=== PATIENT | female | born 1970 | race Caucasian/White ===

== ENCOUNTER 2018-08-08 12:54 | Day surgery (SDC) | payer OTHER ==
[2018-08-08 13:04] VITALS: RESP 16; TEMP 97.3
[2018-08-08 13:11] VITALS: BMI 23.3
[2018-08-08] MEDS ORDERED: LACTATED RINGERS 1,000 ML IV ONE (13:32)
[2018-08-08] MEDS ORDERED: MIDAZOLAM 2 MG/2 ML VIAL ONE (14:57)
[2018-08-08] MEDS ORDERED: fentaNYL (PF) 50 MCG/ML 2 ML AMP ONE (14:57)
[2018-08-08] MEDS ORDERED: PROPOFOL 10 MG/ML 20 ML VIAL IV ONE (14:57)
--- NOTE | 2018-08-08 15:44 | P.PCN ---
Date of Procedure: 08/08/18 Description of Procedure: BRIEF HISTORY: Pleasant 48-year-old female who presents for outpatient colonoscopy. The patient reports no family history of colon cancer. No prior colonoscopies. She denies any change in her bowel habits, constipation, diarrhea, hematochezia or melena. PROCEDURE PERFORMED: Colonoscopy with hot snare polypectomy. PREOPERATIVE DIAGNOSIS: Colon cancer screening, no prior colonoscopy. ESTIMATED BLOOD LOSS: Minimal. IV sedation per Anesthesia. PROCEDURE: After informed consent was obtained, the patient, was brought into the endoscopy unit. IV sedation was administered by Anesthesia under continuous monitoring. Digital rectal examination was normal. Initially the Olympus CF-190 flexible video colonoscope was then inserted in the rectum, gradually advanced into the cecum without any difficulty. Careful examination was performed as the scope was gradually being withdrawn. Ileocecal valve and the appendiceal orifice were visualized and appeared normal. Prep was excellent. Mucosa of the cecum, ascending colon, transverse colon, descending colon, sigmoid colon, and rectum appeared normal. An 11 mm pedunculated polyp in the proximal sigmoid colon was removed with hot forceps polypectomy. An 8 mm pedunculated distal sigmoid polyp was removed with hot forceps polypectomy. Mild internal hemorrhoids and skin tags. Retroflexion was performed in the rectum and no lesions were seen. The patient tolerated the procedure well. IMPRESSION: 2 sigmoid polyps removed with hot forcep polypectomy. Mild internal hemorrhoids, internal skin tags. RECOMMENDATIONS: Findings of this examination were discussed with the patient. Okay to resume diet. Await pathology from biopsies. Anticipate repeat colonoscopy in 3 years for high-risk polyps, pending pathology from polypectomies..
[2018-08-08 16:05] VITALS: BP 103/62; PULSE 77
== END 2018-08-08 16:16 | disposition home or self-care (01) ==
LOC: ORWHC2ENDO 12:54
PROVIDERS: ATTEND Internal Medicine
DX: Z12.11 Encounter for screening for malignant neoplasm of colon (principal); D12.5 Benign neoplasm of sigmoid colon; F17.200 Nicotine dependence, unspecified, uncomplicated; K64.8 Other hemorrhoids
CPT/HCPCS: 81025; 88305; 45385; J2250; J3010; J2704

== ENCOUNTER → 2020-03-29 | Outpatient (CLI) | payer OTHER ==
[2020-03-29 15:57] VITALS: BP 112/72; PULSE 75; RESP 18; TEMP 97.7
--- NOTE | 2020-03-29 16:19 | P.GSHP ---
History of Present Illness H&P Date: 03/29/20 Chief Complaint: right breast cyst Natty is a 50 year old white female seen in consultation for Dr. Alva regarding a mass in the right breast. She was able to feel for several months, but over the past several weeks that has completely resolved. [place] [address]. This revealed a 3 cm mass in the upper outer quadrant of the right breast for which an ultrasound was recommended. An ultrasound was done on [id number] this revealed 2.2 cm cystic lesion at a depth of 6 mm in the right breast. There was a question of some internal debris and suggestion that aspiration secondary to superficial position performed.The cyst has been intermittent for several years. This was the largest it has ever been, but now seems to have decreased in size again, and is not palpable to the patient. She does not have any other lumps masses or nodules in her breast. She is not complaining of any nipple discharge or skin changes. She has never had any breast biopsies. She is not complaining of any pain in her breast. Caffeine: 2 cups coffee/day Nicotine: Patient stopped several years ago mariah-bromine: weekly hormones: none Family history: maternal grandfather: colon cancer Hormonal History: menarche: 15 , breast fed: no, age at first : 25 menopause: menstrual periods sporadic control pills: 5 years Surgical History: Right knee surgery Tonsillectomy Medical history: Negative Social History: Smoke: Former smoker Alcohol: Occasional Drugs: Negative - Constitutional Constitutional: Reports sweats, Denies chills, Denies fever - EENT Eyes: denies blurred vision, denies pain Ears: deny: decreased hearing, tinnitus Ears, nose, mouth and throat: Denies headache, Denies sore throat - Breasts Breasts: bilateral: as per HPI - Cardiovascular Cardiovascular: Denies chest pain, Denies shortness of breath - Respiratory Respiratory: Denies cough, Denies 7 - Gastrointestinal Gastrointestinal: Denies abdominal pain, Denies diarrhea, Denies nausea, Denies vomiting - Genitourinary (Female) Genitourinary: Denies dysuria, Denies hematuria - Menstruation Menstruation: Reports menses variable - Musculoskeletal Musculoskeletal: Reports as per HPI - Integumentary Integumentary: Denies pruritus, Denies rash - Neurological Neurological: Denies numbness, Denies weakness - Psychiatric Psychiatric: Denies anxiety, Denies depression - Endocrine Endocrine: Denies fatigue, Denies weight change - Hematologic/Lymphatic Comment: none - Allergic/Immunologic Allergic/Immunologic: Reports seasonal allergies Past Medical History History of Any Multi-Drug Resistant Organisms: None Reported Additional Past Surgical History / Comment(s): RIGHT KNEE SURGERY IN HIGH SCHOOL Past Anesthesia/Blood Transfusion Reactions: No Reported Reaction Past Psychological History: No Psychological Hx Reported Past Alcohol Use History: Occasional Past Drug Use History: None Reported Medications and Allergies Home Medications Medication Instructions Recorded Confirmed Type Multivit/Folic Acid/Vit K1 1 each PO DAILY 03/29/20 03/29/20 History [One-A-Day Women's 50 Plus Tab] Allergies Allergy/AdvReac Type Severity Reaction Status Date / Time No Known Drug Allergies Allergy Unknown Verified 03/29/20 15:57 Surgical - Exam - General well developed, well nourished, no distress - Eyes normal ocular movement - ENT no hearing loss, no congestion - Neck no masses, trachea midline - Respiratory normal expansion, normal respiratory effort, clear to auscultation - Cardiovascular Rhythm: regular Heart Sounds: normal: S1, S2 - Abdomen Abdomen: soft, non tender, no guarding, no rigid, no rebound - Integumentary normal turgor - Neurologic no disoriented, no combative - Musculoskeletal normal gait - Psychiatric oriented to time, oriented to person, oriented to place, speech is normal, memory intact breast exam: BRA: 34B inspection: bilateral grade 2 ptosis palpation: right breast: Multi-positional exam dense fibrocystic breast tissue no dominant masses or nodules of concern Right axilla: No adenopathy of concern Left breast: Multi-positional exam dense fibrocystic breast tissue no dominant masses or nodules of concern Left axilla: No adenopathy of concern Results Mammogram and ultrasound results reviewed from January 2020 Assessment and Plan Assessment: Impression: 1. Cystic lesion right breast which has since resolved 2. Dense fibrocystic breast tissue Plan: 1. Repeat ultrasound when the lesion recurs, or if it does not recur would repeat in 4 months 2. At this time there is nothing palpable to aspirate CC: DR. Alva encounter 45 minutes, > 50% of time in planning and counselling We discussed causes of fibrocystic breast changes. These include caffeine. aNtty will consider decreasing her caffeine intake. At the present time there is nothing to biopsy, we will continue close surveillance and I will see her again in 4 months time. She has been given a book on breast pain/fibrocystic changes.
== END | disposition home or self-care (01) ==
LOC: WWCWWP 15:45
PROVIDERS: ATTEND Surgery
DX: Z53.9 Procedure and treatment not carried out, unspecified reason (principal)

== ENCOUNTER → 2022-02-16 | Outpatient (CLI) | payer BC ==
--- NOTE | 2022-02-17 08:37 | MM ---
Reason for Exam: Screening (asymptomatic). Last mammogram was performed 2 year(s) and 0 month(s) ago. Patient History: Menarche at age 14. First Full-Term at age 25. Last menstrual period: Risk Values: Denia 5 year model risk: 1.2%. NCI Lifetime model risk: 8.5%. Prior Study Comparison: 12/27/2017 Bilateral MG 3D screening mammo w/cad, [facility]. 08/22/2018 Bilateral MG 3D diag mammo w/cad JUD - 2, [facility]. 01/25/2020 Bilateral MG screening mammo w CAD - 2, [facility]. Tissue Density: The breast tissue is extremely dense which could obscure a lesion on mammography. Findings: Analyzed By CAD. There are scattered and loosely grouped benign-appearing round calcifications bilaterally. There is new oval 1.1 cm circumscribed mass in the posterior depth upper outer right breast. There are increasing indeterminate calcifications in the anterior upper aspect right breast. Both warrants further workup. Overall Assessment: Incomplete: need additional imaging evaluation, BI-RAD 0 Management: Special View Mammogram of the right breast. Diagnostic Breast Ultrasound of the right breast. Return for additional spot magnification and true lateral views right breast. Return for targeted ultrasound posterior depth upper outer right breast. Electronically signed and approved by: Elijah Perry M.D.
== END | disposition home or self-care (01) ==
LOC: RADMAMWWP 07:31
PROVIDERS: ATTEND Family Medicine
DX: Z12.31 Encounter for screening mammogram for malignant neoplasm of breast (principal)
CPT/HCPCS: 77063; 77067

== ENCOUNTER → 2022-02-20 | Outpatient (CLI) | payer BC ==
--- NOTE | 2022-02-20 15:28 | USB ---
Reason for Exam: Additional evaluation requested from abnormal screening. Patient History: Menarche at age 14. First Full-Term at age 25. Risk Values: Denia 5 year model risk: 1.2%. NCI Lifetime model risk: 8.5%. Technique: Method: Targeted. Prior Study Comparison: 08/22/2018 Bilateral MG 3D diag mammo w/cad JUD - 2, [facility]. 01/25/2020 Bilateral MG screening mammo w CAD - 2, [facility]. 02/16/2022 Bilateral MG 3D screening mammo w/cad, [facility]. Findings: The lateral section of the breast of the right breast and the axilla of the right breast were scanned. A 0.9 x 0.8 x 0.5 cm cyst with posterior wall enhancement and through transmission is present at the 8:00 position right breast. An additional cysts at the 12:00 position 5 cm from the nipple measuring 0.7 x 0.4 cm. At the 10:00 position there is apparent adjacent cysts or a septated cyst 5 cm in the nipple measuring 1.2 x 0.6 cm. No suspicious solid lesions. Overall Assessment: Probably benign, BI-RAD 3 Management: Diagnostic Breast Ultrasound of the right breast in 6 months. Stereotactic Core Biopsy of the right breast. A clinical breast exam by your physician is recommended on an annual basis and results should be correlated with mammographic findings. This exam should not preclude additional follow-up of suspicious palpable abnormalities. ??Results were given to the patient verbally at the time of exam. Electronically signed and approved by: Daniel Thao D.O. Radiologis
--- NOTE | 2022-02-23 08:22 | MM ---
Reason for Exam: Follow-up at short interval from prior study. Last screening mammogram was performed less than 1 month ago. Patient History: Menarche at age 14. First Full-Term at age 25. Risk Values: Denia 5 year model risk: 1.2%. NCI Lifetime model risk: 8.5%. Tissue Density: Right: The breast tissue is extremely dense which could obscure a lesion on mammography. Findings: Analyzed By CAD. There are grouped calcifications in the anterior right upper outer aspect. These are increasing from the comparison 2019. Stereotactic core biopsy is recommended. Overall Assessment: Suspicious, BI-RAD 4 Management: Stereotactic Core Biopsy of the right breast. A clinical breast exam by your physician is recommended on an annual basis and results should be correlated with mammographic findings. This exam should not preclude additional follow-up of suspicious palpable abnormalities. Results were given to the patient verbally at the time of exam. Electronically signed and approved by: Daniel Thao D.O. Radiologis
== END | disposition home or self-care (01) ==
LOC: RADMAMWWP 13:39
PROVIDERS: ATTEND Family Medicine
DX: R92.8 Other abnormal and inconclusive findings on diagnostic imaging of breast (principal)
CPT/HCPCS: 77061; 77065

== ENCOUNTER → 2022-03-27 | Outpatient (CLI) | payer BC | LOC: WWCWWP 07:03 | PROVIDERS: ATTEND Surgery | DX: Z53.9 Procedure and treatment not carried out, unspecified reason (principal) ==

== ENCOUNTER → 2022-03-27 | Day surgery (SDC) | payer BC ==
[2022-03-27 07:23] VITALS: RESP 16
--- NOTE | 2022-03-27 08:11 | P.GSHP ---
History of Present Illness H&P Date: 03/27/22 Chief Complaint: abnormal right breast mammogram Natty is a 52 year old white female seen in consultation for DR. Alexander King regarding an abnormal right breast mammogram. Screening mammogram on 489394. This revealed dense breast tissue with some questionable calci fications as well as an oval circumscribed mass in the posterior depth of her upper outer right breast. The calcifications were in the anterior upper right breast. She subsequently underwent an ultrasound of the right breast revealing cystic changes which was considered benign by roots 3 and repeat ultrasound in 6 months was recommended as well [place] [address] which revealed grouped calcifications in the anterior right upper outer quadrant for which stereotactic core biopsy was recommended. The patient does not feel any lumps masses or nodules of concern in either breast. She is not complaining of any breast pain. She is not complaining of any nipple discharge or skin changes. She's not had any recent trauma or infection in the breast. Is never had any surgery on her breast. Caffeine: 3 cups coffee/day nicotine: stopped 1 year ago; occasional smoker for 30 years chocolate: occasional BCP: 4 years 30 years ago Family history: father: lung cancer Hormonal History: menarche: 15 , breast fed: no age at first : 25 menopasuse: 52 hormones: no Surgical history: right knee Medical History: long COVID (on prednisone and Cymbalta) Social History: nicotine: stopped 1 year ago; occasional smoker for 30 years alcohol: occasional; 7/week wine or beer Marijuana: Negative - Constitutional Constitutional: Denies chills, Denies fever - EENT Eyes: denies blurred vision, denies pain Ears: deny: decreased hearing, tinnitus Ears, nose, mouth and throat: Denies headache, Denies sore throat - Breasts Breasts: bilateral: as per HPI - Cardiovascular Cardiovascular: Denies chest pain, Denies shortness of breath - Respiratory Respiratory: Denies cough, Denies 7 - Gastrointestinal Gastrointestinal: Denies abdominal pain, Denies diarrhea, Denies nausea, Denies vomiting - Genitourinary (Female) Genitourinary: Denies dysuria, Denies hematuria - Menstruation Menstruation: Reports postmenopausal - Musculoskeletal Comment: Patient has muscle aches and pains following covid vaccination and covid, she is presently treated with prednisone and Cymbalta Musculoskeletal: Reports myalgias - Integumentary Integumentary: Denies pruritus, Denies rash - Neurological Neurological: Denies numbness, Denies weakness - Psychiatric Psychiatric: Denies anxiety, Denies depression - Endocrine Endocrine: Reports weight change, Denies fatigue - Hematologic/Lymphatic Comment: none - Allergic/Immunologic Allergic/Immunologic: Reports as per HPI Past Medical History Additional Past Medical History / Comment(s): chronic muscle pain r/t covid Jan 2021, taking cymbalta and prednisone for pain management History of Any Multi-Drug Resistant Organisms: None Reported Additional Past Surgical History / Comment(s): RIGHT KNEE SURGERY IN HIGH SCHOOL 1984 Past Anesthesia/Blood Transfusion Reactions: No Reported Reaction Past Psychological History: No Psychological Hx Reported Smoking Status: Former smoker Past Alcohol Use History: Occasional Past Drug Use History: None Reported Medications and Allergies Home Medications Medication Instructions Recorded Confirmed Type Multivit/Folic Acid/Vit K1 1 each PO DAILY 03/29/20 03/27/22 History [One-A-Day Women's 50 Plus Tab] DULoxetine HCL [Cymbalta] 30 mg PO DAILY 02/23/22 03/27/22 History predniSONE 10 mg PO BID 02/23/22 03/27/22 History Allergies Allergy/AdvReac Type Severity Reaction Status Date / Time No Known Drug Allergies Allergy Unknown Verified 03/27/22 07:40 Surgical - Exam Vital Signs Temp Pulse Resp BP 98.1 F 69 16 118/82 03/27/22 07:16 03/27/22 07:16 03/27/22 07:16 03/27/22 07:16 BMKI: 21.1 - General no distress - Eyes normal ocular movement - Neck trachea midline - Respiratory normal respiratory effort, clear to auscultation - Cardiovascular Heart Sounds: normal: S1, S2 - Abdomen Abdomen: soft, non tender, no guarding, no rigid, no rebound - Integumentary normal turgor - Musculoskeletal normal gait - Psychiatric oriented to time, oriented to person, oriented to place, speech is normal, memory intact Breast Exam: BRA: 34C Inspection: Bilateral grade 2 ptosis Palpation: Right breast: Multiple positional exam dense fibrocystic breast, no discrete dominant masses or nodules of concern Right axilla: No adenopathy of concern Left breast: Multi-positional exam dense fibrocystic breast, no dominant masses or nodules of concern Left axilla: No adenopathy of concern Results Mammogram reviewed personally with Dr. Mahoney Assessment and Plan Assessment: Impression: Microcalcifications of concern in the right breast Cystic lesions right breast Fibrocystic breast changes bilateral Plan: Stereotactic core biopsy right breast Repeat right breast ultrasound in 6 months Risks and benefits of stereotactic core biopsy discussed with the patient. Risks include but are not limited to bleeding, infection, reaction to the anesthetic. If the biopsy results were discordant then open biopsy may be recommended in the future. Alternatives such as watchful waiting or resection in the operating room I discussed but not recommended. The patient understands and wishes to proceed. Cc: Dr. Carranza
[2022-03-27 08:51] VITALS: BP 111/73; PULSE 65; TEMP 98.2
--- NOTE | 2022-03-27 13:25 | P.PCN ---
Date of Procedure: 03/27/22 Preoperative Diagnosis: Microcalcifications of concern right breast Postoperative Diagnosis: Same Procedure(s) Performed: Stereotactic core biopsy right breast Anesthesia: local Surgeon: Valerie Drake Pathology: other (Radiograph of right breast specimen revealed microcalcifications) Condition: stable Disposition: same day Indications for Procedure: Abnormal right breast microcalcifications Operative Findings: Radiograph of tissue microcalcifications of concern Description of Procedure: The patient is a 52-year-old white female who on a routine mammogram was noted to have microcalcifications of concern in the right breast. This was reviewed with radiology and it was felt that there were multiple areas of microcalcification and sampling of a group would be veterans service representative of the remainder of the calcifications. A group was selected which was in the mid breast. Risk and benefits of the procedure were discussed with the patient. She agreed and wished to have the procedure performed. The patient was taken to the stereotactic core biopsy room. She was positioned prone on the lo-rad table. A coil machine supervisor film was obtained. Calcifications of concern were identified. The calcifications were targeted. The breast was prepped using Betadine. 20 mL of 1% lidocaine were used to anesthetize the area of concern. A 9-gauge vacuum-assisted core rotating biopsy needle was driven to the correct coordinates. The needle was fired. Post fire film was obtained. The needle was noted to be in the correct location. 12 core biopsy specimens were obtained. Radiograph of the specimen revealed calcifications of concern had been removed. The area was lavaged. A hydrogel clip was deployed. The clip appeared to be in the correct location. The specimen was sent to pathology. The patient will follow up with Dr. Treadwell in 1 week.
--- NOTE | 2022-03-27 13:51 | MM ---
Date of Procedure: 03/27/22 Preoperative Diagnosis: Microcalcifications of concern right breast Postoperative Diagnosis: Same Procedure(s) Performed: Stereotactic core biopsy right breast Anesthesia: local Surgeon: Valerie Drake Pathology: other (Radiograph of right breast specimen revealed microcalcifications) Condition: stable Disposition: same day Indications for Procedure: Abnormal right breast microcalcifications Operative Findings: Radiograph of tissue microcalcifications of concern Description of Procedure: The patient is a 52-year-old white female who on a routine mammogram was noted to have microcalcifications of concern in the right breast. This was reviewed with radiology and it was felt that there were multiple areas of microcalcification and sampling of a group would be banking representative of the remainder of the calcifications. A group was selected which was in the mid breast. Risk and benefits of the procedure were discussed with the patient. She agreed and wished to have the procedure performed. The patient was taken to the stereotactic core biopsy room. She was positioned prone on the lo-rad table. A football scout film was obtained. Calcifications of concern were identified. The calcifications were targeted. The breast was prepped using Betadine. 20 mL of 1% lidocaine were used to anesthetize the area of concern. A 9-gauge vacuum-assisted core rotating biopsy needle was driven to the correct coordinates. The needle was fired. Post fire film was obtained. The needle was noted to be in the correct location. 12 core biopsy specimens were obtained. Radiograph of the specimen revealed calcifications of concern had been removed. The area was lavaged. A hydrogel clip was deployed. The clip appeared to be in the correct location. The specimen was sent to pathology. The patient will follow up with Dr. Treadwell in 1 week. HARRY
== END ==
LOC: RADMAMWWP 07:01
PROVIDERS: ATTEND Surgery
DX: N60.11 Diffuse cystic mastopathy of right breast (principal); G89.29 Other chronic pain; Z80.1 Family history of malignant neoplasm of trachea, bronchus and lung; Z86.16 Personal history of COVID-19; Z87.891 Personal history of nicotine dependence; Z86.59 Personal history of other mental and behavioral disorders; Z79.52 Long term (current) use of systemic steroids; Z79.899 Other long term (current) drug therapy
CPT/HCPCS: 19081; A4648; J2001; 88305; 88341; 88342

== ENCOUNTER → 2022-04-03 | Outpatient (CLI) | payer BC ==
[2022-04-03 08:45] VITALS: BP 117/76; PULSE 80; RESP 16; TEMP 98.4
--- NOTE | 2022-04-03 09:37 | P.PN ---
Subjective Progress Note Date: 04/03/22 Principal diagnosis: Atypical lobular hyperplasia right breast Natty is a 52 year old white female seen in consultation for DR. Carranza regarding an abnormal right breast mammogram. Screening mammogram on [id number]. This revealed dense breast tissue with some questionable calcifications as well as an oval circumscribed mass in the posterior depth of her upper outer right breast. The calcifications were in the anterior upper right breast. She subsequently underwent an ultrasound of the right breast revealing cystic changes which was considered benign by roots 3 and repeat ultrasound in 6 months was recommended [place] [address] which revealed grouped calcifications in the anterior right upper outer quadrant for which stereotactic core biopsy was recommended. The patient does not feel any lumps masses or nodules of concern in either breast. She is not complaining of any breast pain. She is not complaining of any nipple discharge or skin changes. She's not had any recent trauma or infection in the breast. Is never had any wade rgery on her breast. Stereotactic core biopsy was performed on 1622. This revealed atypical lobular hyperplasia. It also revealed fibrocystic changes with fibrosis, focal microcalcification, focal mammary duct ectasia, and periductal chronic inflammation. I discussed the case with pathology and they do not believe that this warrants interventional biopsy. This is not LCIS, this is not a typical ductal hyperplasia. Before that this area should be followed clinically. Caffeine: 3 cups coffee/day nicotine: stopped 1 year ago; occasional smoker for 30 years chocolate: occasional BCP: 4 years 30 years ago Family history: father: lung cancer Hormonal History: menarche: 15 , breast fed: no age at first : 25 menopasuse: 52 hormones: no Surgical history: right knee Medical History: long COVID (on prednisone and Cymbalta) Social History: nicotine: stopped 1 year ago; occasional smoker for 30 years alcohol: occasional; 7/week wine or beer Marijuana: Negative - Constitutional Constitutional: Denies chills, Denies fever - EENT Eyes: denies blurred vision, denies pain Ears: deny: decreased hearing, tinnitus Ears, nose, mouth and throat: Denies headache, Denies sore throat - Breasts Breasts: bilateral: as per HPI - Cardiovascular Cardiovascular: Denies chest pain, Denies shortness of breath - Respiratory Respiratory: Denies cough - Gastrointestinal Gastrointestinal: Denies abdominal pain, Denies diarrhea, Denies nausea, Denies vomiting - Genitourinary (Female) Genitourinary: Denies dysuria, Denies hematuria - Menstruation Menstruation: Reports postmenopausal - Musculoskeletal Comment: Patient has muscle aches and pains following covid vaccination and covid, she is presently treated with prednisone and Cymbalta Musculoskeletal: Reports myalgias - Integumentary Integumentary: Denies pruritus, Denies rash - Neurological Neurological: Denies numbness, Denies weakness - Psychiatric Psychiatric: Denies anxiety, Denies depression - Endocrine Endocrine: Reports weight change, Denies fatigue - Hematologic/Lymphatic Comment: none - Allergic/Immunologic Allergic/Immunologic: Reports as per HPI Past Medical History Additional Past Medical History / Comment(s): chronic muscle pain r/t covid Jan 2021, taking cymbalta and prednisone for pain management History of Any Multi-Drug Resistant Organisms: None Reported Additional Past Surgical History / Comment(s): RIGHT KNEE SURGERY IN HIGH SCHOOL 1984 Past Anesthesia/Blood Transfusion Reactions: No Reported Reaction Past Psychological History: No Psychological Hx Reported Smoking Status: Former smoker Past Alcohol Use History: Occasional Past Drug Use History: None Reported Medications and Allergies Home Medications Medication Instructions Recorded Confirmed Type Multivit/Folic Acid/Vit K1 1 each PO DAILY 03/29/20 03/27/22 History [One-A-Day Women's 50 Plus Tab] DULoxetine HCL [Cymbalta] 30 mg PO DAILY 02/23/22 03/27/22 History predniSONE 10 mg PO BID 02/23/22 03/27/22 History Allergies Allergy/AdvReac Type Severity Reaction Status Date / Time No Known Drug Allergies Allergy Unknown Verified 03/27/22 07:40 Objective - Vital Signs Vital signs: Vital Signs Temp 98.4 F 04/03/22 08:41 Pulse 80 04/03/22 08:41 Resp 16 04/03/22 08:41 BP 117/76 04/03/22 08:41 Pulse Ox 98 04/03/22 08:41 FiO2 Intake & Output 04/02/22 04/03/22 04/03/22 18:59 06:59 18:59 Weight 61.235 kg - Constitutional General appearance: Present: cooperative - EENT Eyes: Present: EOMI ENT: Present: hearing grossly normal - Neck Neck: Present: normal ROM - Respiratory Respiratory: bilateral: CTA - Cardiovascular Rhythm: regular Heart sounds: normal: S1, S2 - Gastrointestinal General gastrointestinal: Present: soft - Integumentary Integumentary: Present: normal turgor - Musculoskeletal Musculoskeletal: Present: gait normal - Psychiatric Psychiatric: Present: A&O x's 3, appropriate affect, intact judgment & insight - Additional findings Additional findings: Breast Exam: BRA: 34C Inspection: Bilateral grade 2 ptosis Palpation: Right breast: Multiple positional exam dense fibrocystic breast, no discrete dominant masses or nodules of concern Right axilla: No adenopathy of concern Left breast: Multi-positional exam dense fibrocystic breast, no dominant masses or nodules of concern Left axilla: No adenopathy of concern Assessment and Plan Assessment: Impression: Patient status post her tactic core biopsy right breast pathology revealing a typical lobular hyperplasia Plan: Case has been reviewed with pathology. It is not felt that it necessitates interventional biopsy at this time. She will have a repeat right breast mammogram and examination in 6 months. If she notes anything of concern she will call us sooner. CC: Barbie Ivey
== END ==
LOC: WWCWWP 08:32
PROVIDERS: ATTEND Surgery
DX: N60.11 Diffuse cystic mastopathy of right breast (principal); N60.12 Diffuse cystic mastopathy of left breast; Z86.16 Personal history of COVID-19; F17.200 Nicotine dependence, unspecified, uncomplicated

== ENCOUNTER → 2022-08-12 | Outpatient (CLI) | payer BC ==
[2022-08-12 08:14] VITALS: BP 111/76; PULSE 70; RESP 18; TEMP 98.8
--- NOTE | 2022-08-12 13:46 | P.PAINPG ---
PQRS Measure Charge Sheet Comment: HISTORY OF PRESENT ILLNESS: 52 yr old female as a referral from Dr Bin Acosta presents today w severe and chronic neck pain secondary to stenosis, spondylosis and facet arthropathy without myelopathy for evaluation. Pt states pain level is provoked at 7/10 in intensity, constant, localized in the lower cervical spine, tightness in character w shooting pain up towards the head and BL shoulders. Pain is provoked by . Pain is alleviated by massage therapy semi monthly x 6 mo in Apr 2022, chiropractic treatments semi weekly x 6 mo in Jan 2022, medications, ice, topicals, reposition and rest. PMH: OA PSH: R Breast Biopsy (2022), R Knee Surgery (1984) SH: Former tobacco user, Occasional ETOH use, No illicit drug use FH: Non contributory All: NKDA Meds: See list REVIEW OF ORGAN SYSTEMS: CONSTITUTIONAL: No fevers or chills. No recent weight loss. NEUROLOGICAL: + numbness and tingling along the distal extremities. No seizure disorders or headaches. MUSCULOSKELETAL: + pain PSYCHIATRIC: Denies current depression or suicidal thoughts. Physical Examinations : Constitutional : Cooperative , not in acute distress . Neurologic : Cranial nerve II to XII intact. No focal neurological deficits. Psychiatric : alert & oriented x 3. Matching mood & appropriate affect. Judgment & insight intact. Musculoskeletal : Cervical Spine Motor strength in the deltoid and biceps: Normal right side. Normal Left side Motor strength biceps and the wrist extensors: Normal right side . Normal left side Motor strength in the triceps muscle: Normal right side. Normal left side Deep tendon reflexes: Normal at the biceps. Normal at Brachioradialis. Normal at triceps Vertebral body tenderness to deep palpation over C6 Cervical facet loading test: positive bilaterally Spurling test: positive at C5- C6 Neck distraction test: positive bilaterally Mandy sign: positive bilaterally Lumbar spine Motor strength lower extremities ,thigh and legs 5/5 Right side , 5/5 Left side Deep tendon reflexes : Normal Knee Jerk. Normal Ankle Jerk Vertebral body tenderness over [place] Test positive Lumbar facet Loading Test: positive Right / positive Left Range of motion of the lumbar spine Flexion 30 degrees, extension 10 degrees Straight Leg Raise test: Left/ Right positive at degree Jimmie test: positive right / positive left. Severe tenderness over the Sacroiliac joint on the Right / Left sides Gaenslen test: positive bilaterally Seated flexion test: positive bilaterally. Sacral spine : Severe tenderness over the Sacroiliac joint: right side / left side Range of motion: Flexion of the lumbar spine <60 degrees Range of motion: Extension of the lumbar spine <20 degrees Gaenslen's Test positive Jordan's Test positive Jimmie test: positive right side / left side Thigh Thrust Test Sacral Thrust Test Imaging: MRI noncontrast of the cervical spine from 05/15/22 reviewed Assessment/ Plan : Cervical stenosis, cervical spondylosis Recommendation of MANSI C6-7. May need a series of injections for optimal pain relief. Risks, benefits of procedure discussed and patient verbalized understanding. Admits to aspirin or anti- coagulant use or medical history of diabetes. Protocol for discontinuation/ continuation of medications kerline procedure discussed. Minimal anesthesia provided, if clinically indicated, consisting of Versed and Fentanyl. All questions answered. I have spent greater than 30 minutes on patient care today. Dr Gross was available by phone for the evaluation of this patient. The time was used to review the medical records including relevant urine studies and Prescription history (MAPs), review of the available imaging, evaluation and examination of the patient, coordination of care with the medical staff and if applicable referring physicians, as well as creation of the medical record PQRS Narrative: Smoking Status Current some day smoker Home Medications: Ambulatory Orders Multivit/Folic Acid/Vit K1 [One-A-Day Women's 50 Plus Tab] 1 each PO DAILY 03/29/20 DULoxetine HCL [Cymbalta] 30 mg PO DAILY 02/23/22 predniSONE 10 mg PO BID 02/23/22 Controlled Substance Measures - Controlled Substance Measures Is patient prescribed a controlled substance at discharge?: No
== END ==
LOC: PNWHC3 07:30
PROVIDERS: ATTEND Specialist
DX: M47.812 Spondylosis without myelopathy or radiculopathy, cervical region (principal); M48.02 Spinal stenosis, cervical region; M19.90 Unspecified osteoarthritis, unspecified site; F17.200 Nicotine dependence, unspecified, uncomplicated
CPT/HCPCS: 99211

== ENCOUNTER 2022-09-03 06:12 | Day surgery (SDC) | payer BC ==
[2022-09-03 06:57] VITALS: TEMP 97.5
[2022-09-03 07:00] LABS: Glucose,Whole Blood 104 mg/dL (70-110)
[2022-09-03] MEDS ORDERED: DEXAMETHASONE SOD PHOSPHATE 10 MG/ML 1 ML VIAL ONE (07:24)
[2022-09-03] MEDS ORDERED: IOPAMIDOL M200 10 ML VIAL ONE (07:24)
--- NOTE | 2022-09-03 07:30 | P.PCN ---
Date of Procedure: 09/03/22 Procedure(s) Performed: . PROCEDURE 1. Cervical epidural steroid injection under fluoroscopic guidance, C6-7 (fluoroscopy images available in the radiology department ) 2. Cervical epidurogram. PREOPERATIVE DIAGNOSIS: 1- Cervical Degenerative Disc Diseases 2-cervical spinal stenosis POSTOPERATIVE DIAGNOSIS: : 1- Cervical Degenerative Disc Diseases , 2-cervical spinal stenosis ANESTHESIA: Lidocaine 1% 3 mL only EBL 0 PROCEDURE INDICATION: The patient with neck pain and radiculitis unresponsive to conservative treatment consents for procedure. PROCEDURE DESCRIPTION / TECHNIQUE: The patient was seen and identified in the preoperative area. Risks, benefits, complications, including but not limited to infections ,bleeding , allergic reactions to the medications ,and not complete pain releife, and alternatives were discussed with the patient, the patient agreed to proceed with the procedure and signed the consent. Patient was taken to the OR and time out was completed. The patient was placed in the prone position on the procedure table. A pillow was placed under the patients chest to increase the cervical interlaminar space. The cervical area was prepped and draped in the usual sterile fashion. Vital signs were closely monitored during the procedure. Using anterior-posterior fluoroscopy, the C6-7 interlaminar space was identified and the skin over this site was marked and then infiltrated with 1% lidocaine subcutaneously. Subsequently, a 20-gauge 3-1/2-inch Tuohy epidural needle was inserted and advanced toward the epidural space by means of the ``hanging-drop technique and guided by AP and lateral fluoroscopy. The correct needle position in the epidural space was verified with the injection of 2 mL of the water soluble contrast dye [id number] and observing an excellent epidurogram with the epidural spread of the dye, after negative aspiration for blood and CSF and in the absence of paresthesias. then, mixture containing 20 mg Dexamethasone and 2 ml of preservative-free normal saline injected and a washout of epidurogram was seen. Needle was withdrawn intact, skin was cleansed, and bandages were applied. Complications= none. Disposition= patient was placed in supine position and transferred to the recovery room area in stable condition and there was no evidence of upper or lower extremity motor or sensory deficit after the procedure patient was discharged from recovery room after discharge criteria met and home discharge instructions was given by the staff and patient will follow with the pain clinic in 2-4 weeks
[2022-09-03 07:35] VITALS: RESP 16
[2022-09-03] MEDS ORDERED: LACTATED RINGERS 1,000 ML IV SCH (07:41)
--- NOTE | 2022-09-03 07:47 | FL ---
Fluoroscopy History: Cerv Epid Inj FL: 3SEC, DAP: [id number]
[2022-09-03 07:48] VITALS: BP 104/69; PULSE 57
== END 2022-09-03 07:51 | disposition home or self-care (01) ==
LOC: ORPAIN 06:12
PROVIDERS: ATTEND Specialist
DX: M50.123 Cervical disc disorder at C6-C7 level with radiculopathy (principal); M48.02 Spinal stenosis, cervical region
CPT/HCPCS: 62321; J1100; Q9966

== ENCOUNTER → 2022-09-28 | Outpatient (CLI) | payer BC ==
--- NOTE | 2022-09-28 07:17 | MM ---
Reason for Exam: Follow-up at short interval from prior study. Last screening mammogram was performed 8 month(s) ago. Patient History: Menarche at age 14. First Full-Term at age 25. Postmenopausal. Previous Atypical Lobular Hyperplasia at age 52. 03/27/2022, High risk MG stereo VAD BX RT on the right side. Risk Values: Denia 5 year model risk: 2.6%. NCI Lifetime model risk: 18.4%. Prior Study Comparison: 01/25/2020 Bilateral MG screening mammo w CAD - 2, [facility]. 02/16/2022 Bilateral MG 3D screening mammo w/cad, [facility]. 02/20/2022 Right MG 3D work up w/cad RT, [facility]. Tissue Density: Right: The breast tissue is heterogeneously dense. This may lower the sensitivity of mammography. Findings: Analyzed By CAD. Postmammotome core biopsy changes are redemonstrated. Microclip marker in place. Scattered calcifications are redemonstrated. No new clusters seen. No evidence for mass. Overall Assessment: Benign, BI-RAD 2 Management: Screening Mammogram of both breasts in 6 months. . Results were given to the patient verbally at the time of exam. Patient should continue monthly self-breast exams. A clinical breast exam by your physician is recommended on an annual basis. This exam should not preclude additional follow-up of suspicious palpable abnormalities. Note on Denia scores and lifetime risk: 1. A Denia score greater than 3% is considered moderate risk. If this is the case, consider specialist referral to assess eligibility for a risk reducing agent. 2. If overall lifetime risk for the development of breast cancer is 20% or higher, the patient may qualify for future screening with alternating mammogram and breast MRI. Electronically signed and approved by: Wilberto Frances M.D. Radiologis
== END | disposition home or self-care (01) ==
LOC: RADMAMWWP 06:47
PROVIDERS: ATTEND Surgery
DX: R92.8 Other abnormal and inconclusive findings on diagnostic imaging of breast (principal); Z78.0 Asymptomatic menopausal state
CPT/HCPCS: 77061; 77065

== ENCOUNTER → 2022-09-30 | Outpatient (CLI) | payer BC ==
[2022-09-30 11:18] VITALS: BP 105/71; PULSE 69; RESP 18; TEMP 98.7
--- NOTE | 2022-10-02 08:47 | P.PAINPG ---
PQRS Measure Charge Sheet Comment: 52 yr old female presents today w severe and chronic neck pain secondary to stenosis, spondylosis and facet arthropathy without myelopathy for evaluation s/p MANSI C6-C7. Pt states she experienced 0% pain relief s/p procedure. Pt states pain level is provoked at 7/10 in intensity, constant, localized in the lower cervical spine, tightness in character w shooting pain up towards the head and BL shoulders. Pain is provoked by over activity. Pain is alleviated by massage therapy semi monthly x 6 mo in Apr 2022, chiropractic treatments Q 3wks x 6 mo in Jan 2022, medications, ice, topicals, reposition and rest. Oswestry axial pain score of 13. Interventional procedures include MANSI C6-C7 x1 Medications include Ibu REVIEW OF ORGAN SYSTEMS: CONSTITUTIONAL: No fevers or chills. No recent weight loss. NEUROLOGICAL: + numbness and tingling along the distal extremities. No seizure disorders or headaches. MUSCULOSKELETAL: + pain PSYCHIATRIC: Denies current depression or suicidal thoughts. Physical Examinations : Constitutional : Cooperative , not in acute distress . Neurologic : Cranial nerve II to XII intact. No focal neurological deficits. Psychiatric : alert & oriented x 3. Matching mood & appropriate affect. Judgment & insight intact. Musculoskeletal : Cervical Spine Motor strength in the deltoid and biceps: Normal right side. Normal Left side Motor strength biceps and the wrist extensors: Normal right side . Normal left side Motor strength in the triceps muscle: Normal right side. Normal left side Deep tendon reflexes: Normal at the biceps. Normal at Brachioradialis. Normal at triceps Vertebral body tenderness Cervical facet loading test: positive bilaterally over C4-C5, C5-C6 Spurling test: positive Neck distraction test: positive bilaterally Mandy sign: positive bilaterally Lumbar spine Motor strength lower extremities ,thigh and legs 5/5 Right side , 5/5 Left side Deep tendon reflexes : Normal Knee Jerk. Normal Ankle Jerk Vertebral body tenderness over [place]oco Test positive Lumbar facet Loading Test: positive Right / positive Left Range of motion of the lumbar spine Flexion 30 degrees, extension 10 degrees Straight Leg Raise test: Left/ Right positive at degree Jimmie test: positive right / positive left. Severe tenderness over the Sacroiliac joint on the Right / Left sides Gaenslen test: positive bilaterally Seated flexion test: positive bilaterally. Sacral spine : Severe tenderness over the Sacroiliac joint: right side / left side Range of motion: Flexion of the lumbar spine <60 degrees Range of motion: Extension of the lumbar spine <20 degrees Gaenslen's Test positive Jordan's Test positive Jimmie test: positive right side / left side Thigh Thrust Test Sacral Thrust Test Imaging: MRI non contrast of the cervical spine from 05/15/22 reviewed Assessment/ Plan : Cervical stenosis, cervical spondylosis Recommendation of BL MBB C4-C5, C5-C6 #1. May need a series of injections, up until RFA, for optimal pain relief. Risks, benefits of procedure discussed and patient verbalized understanding. Admits to aspirin or anti- coagulant use or medical history of diabetes. Protocol for discontinuation/ continuation of medications kerline procedure discussed. Minimal anesthesia provided, if clinically indicated, consisting of Versed and Fentanyl. All questions answered. I have spent greater than 30 minutes on patient care today. Dr Gross was available by phone for the evaluation of this patient. The time was used to review the medical records including relevant urine studies and Prescription history (MAPs), review of the available imaging, evaluation and examination of the patient, coordination of care with the medical staff and if applicable referring physicians, as well as creation of the medical record PQRS Narrative: Smoking Status Current some day smoker Hx Alcohol Use (MH) Yes: WEEKLY Home Medications: Ambulatory Orders Multivit/Folic Acid/Vit K1 [One-A-Day Women's 50 Plus Tab] 1 each PO DAILY 03/29/20 Folic Acid 1 mg PO DAILY 09/01/22 Ibuprofen [Motrin Ib] 600 mg PO DAILY 09/01/22 metHOTREXate sodium [Methotrexate] 15 mg PO WE 09/01/22 Controlled Substance Measures - Controlled Substance Measures Is patient prescribed a controlled substance at discharge?: No
== END ==
LOC: PNWHC3 07:52
PROVIDERS: ATTEND Specialist
DX: M48.02 Spinal stenosis, cervical region (principal); M47.812 Spondylosis without myelopathy or radiculopathy, cervical region; F17.200 Nicotine dependence, unspecified, uncomplicated
CPT/HCPCS: 99211

== ENCOUNTER → 2022-11-06 | Day surgery (SDC) | payer BC ==
[2022-10-30 14:04] VITALS: BMI 22.5
[~2022-11-06] MED LIST: DEXAMETHASONE SOD PHOSPHATE 10 MG/ML 1 ML VIAL ONE; IV FLUID CONTINUATION 1,000 ML IV ONE; LACTATED RINGERS 1,000 ML IV SCH; MIDAZOLAM 2 MG/2 ML VIAL ONE; ROPIVACAINE 5 MG/ML 20 ML AMPULE ONE; fentaNYL (PF) 50 MCG/ML 2 ML AMP ONE
[2022-11-06 07:33] VITALS: TEMP 97
--- NOTE | 2022-11-06 08:14 | P.PCN ---
Date of Procedure: 11/06/22 Description of Procedure: PREOPERATIVE DIAGNOSIS: Cervical Facet syndrome /cervical spondylosis. POSTOPERATIVE DIAGNOSIS: Cervical Facet syndrome /cervical spondylosis. PROCEDURES: Bilateral cervical C4-C5, and C5-C6 medial branch injections, with fluoroscopic guidance, SURGEON: Yadira Esteves ANESTHESIA: 3ml of Local lidocaine 1% , and IV sedation with : versed 2mg, and Fentanyl 100 mcg EBL: None Specimen removed: None Fluoroscopic image: Saved to electronic medical records. PROCEDURE INDICATION: Patient had chronic neck pain. He tried conservative therapy with minimal benefits. Came here for intervention procedure. PROCEDURE DESCRIPTION: The patient was seen and identified in the preoperative area. Risks, benefits, complications, and alternatives were discussed with the patient. The patient agreed to pursue with the procedure and signed the consent. IV was started and vital signs were stable. Patient was taken to the procedure room and time out was completed. The patient was placed in the prone position on the procedure table and cervical area was prepped with ChloraPrep 1 and draped in the usual sterile fashion. Critical pause was taken. Vital signs were closely monitored during the procedure. Using AP fluoroscopy, right side the waists of lateral margins of C4, C5, and C6 were identified and localized with 1% lidocaine. We used 22-gauge 3-1/2 inch spinal needles 3 used for the procedure. Using the posterior approach, spinal cannulas were guided by anterior posterior fluoroscopy to the waists of the lateral masses of C4, C5, and C6. Needle tip position was confirmed at the centroid of the trapezoids of C4, C5, and C6 with lateral fluoroscopy. After negative aspiration of CSF and blood and with no paresthesias 0.5 mL of block solution injected at each site. Block solution contained 10 MG of dexamethasone and 4 mL of preservative-free ropivacaine 0.5%. [place] were removed intact. Entire procedure repeated on the left side . [place] removed intact. Skin was cleansed and bandages were applied. COMPLICATIONS: None. DISPOSITION / PLANS: The patient was placed in a supine position and transferred to the recovery area in a stable condition for observation and was discharged from the recovery room after meeting discharge criteria. Home discharge instructions given to the patient by the staff. The patient was reexamined prior to discharge. Scheduled to follow up with the pain clinic in 2- 4 weeks duration.
[2022-11-06 08:23] VITALS: RESP 16
[2022-11-06 09:07] VITALS: BP 112/73; PULSE 67
--- NOTE | 2022-11-06 10:06 | FL ---
Fluoroscopy History: CER/THOR FACET BLOCK FT: 21.8 SECONDS DAP: [id number] mGym2
== END ==
LOC: ORPAIN 07:20
DX: M47.812 Spondylosis without myelopathy or radiculopathy, cervical region (principal); M19.90 Unspecified osteoarthritis, unspecified site; M06.9 Rheumatoid arthritis, unspecified; Z98.890 Other specified postprocedural states; Z79.899 Other long term (current) drug therapy
CPT/HCPCS: 64490; 64491; J2250; J1100; J3010; J2795

== ENCOUNTER → 2022-12-09 | Outpatient (CLI) | payer BC ==
[2022-12-09 13:18] VITALS: BP 112/74; PULSE 81; RESP 15; TEMP 98.2
--- NOTE | 2022-12-09 14:17 | P.PAINPG ---
PQRS Measure Charge Sheet Comment: 2 yr old female presents today w severe and chronic neck pain secondary to stenosis, spondylosis and facet arthropathy without myelopathy for evaluation s/p BL facet block of the medial branches C4-C5, C5-C6 #1. Pt states she experienced 80 % pain relief x 1 wk s/p procedure. Pt states pain level is provoked at 6/10 in intensity, constant, localized in the lower cervical spine, tightness in character w shooting pain up towards the head and BL shoulders. Pain is provoked by over activity. Pain is alleviated by massage therapy semi monthly x 6 mo in Apr 2022, chiropractic treatments Q 3wks x 6 mo in Jan 2022, medications, ice, topicals, reposition and rest. Oswestry axial pain score of 11. Interventional procedures include MANSI C6-C7 x1, BL MBB C4-C6 x1 Medications include Ibu REVIEW OF ORGAN SYSTEMS: CONSTITUTIONAL: No fevers or chills. No recent weight loss. NEUROLOGICAL: + numbness and tingling along the distal extremities. No seizure disorders or headaches. MUSCULOSKELETAL: + pain PSYCHIATRIC: Denies current depression or suicidal thoughts. Physical Examinations : Constitutional : Cooperative , not in acute distress . Neurologic : Cranial nerve II to XII intact. No focal neurological deficits. Psychiatric : alert & oriented x 3. Matching mood & appropriate affect. Judgment & insight intact. Musculoskeletal : Cervical Spine Motor strength in the deltoid and biceps: Normal right side. Normal Left side Motor strength biceps and the wrist extensors: Normal right side . Normal left side Motor strength in the triceps muscle: Normal right side. Normal left side Deep tendon reflexes: Normal at the biceps. Normal at Brachioradialis. Normal at triceps Vertebral body tenderness Cervical facet loading test: positive bilaterally over C4-C5, C5-C6 Spurling test: positive Neck distraction test: positive bilaterally Mandy sign: positive bilaterally Lumbar spine Motor strength lower extremities ,thigh and legs 5/5 Right side , 5/5 Left side Deep tendon reflexes : Normal Knee Jerk. Normal Ankle Jerk Vertebral body tenderness over [place] Test positive Lumbar facet Loading Test: positive Right / positive Left Range of motion of the lumbar spine Flexion 30 degrees, extension 10 degrees Straight Leg Raise test: Left/ Right positive at degree Jimmie test: positive right / positive left. Severe tenderness over the Sacroiliac joint on the Right / Left sides Gaenslen test: positive bilaterally Seated flexion test: positive bilaterally. Sacral spine : Severe tenderness over the Sacroiliac joint: right side / left side Range of motion: Flexion of the lumbar spine <60 degrees Range of motion: Extension of the lumbar spine <20 degrees Gaenslen's Test positive Jordan's Test positive Jimmie test: positive right side / left side Thigh Thrust Test Sacral Thrust Test Imaging: MRI non contrast of the cervical spine from 05/15/22 reviewed Assessment/ Plan : Cervical stenosis, cervical spondylosis Recommendation of BL MBB C4-C5, C5-C6 #2. May need a series of injections, up until RFA, for optimal pain relief. Risks, benefits of procedure discussed and patient verbalized understanding. Admits to aspirin or anti- coagulant use or medical history of diabetes. Protocol for discontinuation/ continuation of medications kerline procedure discussed. Minimal anesthesia provided, if clinically indicated, consisting of Versed and Fentanyl. Ibu 800mg #60 w 1 RF. Use, side effects, adverse reactions and safe storage discussed. Pt acknowledged understanding. All questions answered. I have spent greater than 30 minutes on patient care today. Dr Gross was available by phone for the evaluation of this patient. The time was used to review the medical records including relevant urine studies and Prescription history (MAPs), review of the available imaging, evaluation and examination of the patient, coordination of care with the medical staff and if applicable referring physicians, as well as creation of the medical record PQRS Narrative: Smoking Status Current some day smoker Hx Alcohol Use (MH) Yes: WEEKLY Home Medications: Ambulatory Orders Multivit/Folic Acid/Vit K1 [One-A-Day Women's 50 Plus Tab] 1 each PO DAILY 03/29/20 Folic Acid 1 mg PO DAILY 09/01/22 metHOTREXate sodium [Methotrexate] 15 mg PO WE 09/01/22 Ibuprofen 800 mg PO BID 30 Days #60 tab 12/09/22 Controlled Substance Measures - Controlled Substance Measures Is patient prescribed a controlled substance at discharge?: No
== END ==
LOC: PNWHC3 07:57
PROVIDERS: ATTEND Specialist
DX: M47.812 Spondylosis without myelopathy or radiculopathy, cervical region (principal); M48.02 Spinal stenosis, cervical region; F17.200 Nicotine dependence, unspecified, uncomplicated
CPT/HCPCS: 99211

== ENCOUNTER 2023-01-15 07:44 | Day surgery (SDC) | payer BC ==
[~2023-01-15 07:44] MED LIST changes: -DEXAMETHASONE SOD PHOSPHATE 10 MG/ML 1 ML VIAL ONE; -IV FLUID CONTINUATION 1,000 ML IV ONE; -MIDAZOLAM 2 MG/2 ML VIAL ONE; -ROPIVACAINE 5 MG/ML 20 ML AMPULE ONE; -fentaNYL (PF) 50 MCG/ML 2 ML AMP ONE
[2023-01-15 08:24] VITALS: TEMP 97.5
[2023-01-15] MEDS ORDERED: MIDAZOLAM 2 MG/2 ML VIAL ONE (08:55)
[2023-01-15] MEDS ORDERED: fentaNYL (PF) 50 MCG/ML 2 ML AMP ONE (08:55)
[2023-01-15] MEDS ORDERED: methylPREDNISolone ACETATE 40 MG/ML 1 ML VIAL ONE (08:58)
[2023-01-15] MEDS ORDERED: ROPIVACAINE 5MG/ML 20ML VIAL ONE (08:58)
[2023-01-15] MEDS ORDERED: IV FLUID CONTINUATION 1,000 ML IV ONE (09:23)
--- NOTE | 2023-01-15 09:24 | P.PCN ---
Date of Procedure: 01/15/23 Procedure(s) Performed: PREOPERATIVE DIAGNOSIS: 1-Cervical Spondylosis with Facet Arthropathy.without myelopathy. 2-cervical degenerative disc disease POSTOPERATIVE DIAGNOSIS:1-cervical spondylosis with facet arthropathy without myelopathy. 2-cervical degenerative disc disease PROCEDURES: Diagnostic bilateral C4 , C5 , and C6 medial branch blocks, with fluoroscopic guidance (fluoroscopy images available in radiology department ) ( to target the facet joint at bilateral C4- 5 , C5- 6 )# 2nd ANESTHESIA: Monitored anesthesia care as per anesthesia department. EBL: Minimal PROCEDURE INDICATION: The patient with neck pain secondary to cervical arthropathy unresponsive to more conservative treatments. PROCEDURE DESCRIPTION / TECHNIQUE: The patient was seen and identified in the preoperative area. Risks, benefits, complications, and alternatives were discussed with the patient, the patient agreed to proceed with the procedure and signed the consent. IV was started. Vital signs remained stable throughout the procedure. Patient was taken to the OR and time out was completed. The patient was placed in the lateral position on the procedure table. The cervical area was prepped and draped in the usual sterile fashion. Critical pause was taken. Vital signs were closely monitored during the procedure. Conscious sedation was used during the procedure to decrease patients anxiety. Using cross-table lateral fluoroscopy, the centroid of the trapezoid of right C4 , C5 and C6, was identified, marked, and localized with 1% lidocaine 1 ml at each level for skin and Sub Q infiltrations . Subsequently, a 22 G 3 spinal needle was advanced guided by fluoroscopy to the centroid of the trapezoid of Right C4 , C5, C6 . [place] tip position was confirmed at the centroid of the trapezoids of Right C4 , C5 ,C6 with anteroposterior fluoroscopy. Subsequently, 1.5 ml of preservative-free Ropivacaine 0.5% mixed with Depo- Medrol 20 mg and half ml of the mixture was injected after negative aspiration for blood and CSF. [place] was then removed intact the same procedure was repeated at the left, C4 , C5 , C6 levels. COMPLICATIONS: No acute complications. DISPOSITION / PLANS: The patient was placed in a supine position and transferred to the recovery area in a stable condition for observation and was discharged from the recovery room after meeting discharge criteria. Home discharge instructions given to the patient by the staff. The patient was reexamined prior to discharge. The patient will schedule a follow up in the clinic in 2-4 weeks.
--- NOTE | 2023-01-15 09:37 | FL ---
Intraoperative/procedural fluoroscopic services were provided for cervical facet block. Total fluoros copy time is 11.6 seconds with a total of 4 submitted images to PACS. Total DAP [id number] mGym2. Odette bell see the operative note for further details.
[2023-01-15 09:48] VITALS: BP 112/69; PULSE 60; RESP 16
== END 2023-01-15 09:56 | disposition home or self-care (01) ==
LOC: ORPAIN 07:44
PROVIDERS: ATTEND Specialist
DX: M47.812 Spondylosis without myelopathy or radiculopathy, cervical region (principal); M50.323 Other cervical disc degeneration at C6-C7 level
CPT/HCPCS: 64490; 64491 ×2; J2250; J1030; J3010; J2795

== ENCOUNTER → 2023-02-04 | Outpatient (CLI) | payer BC ==
[2023-02-04 08:19] VITALS: BP 132/72; PULSE 64; RESP 15; TEMP 98.5
--- NOTE | 2023-02-04 10:29 | P.PAINPG ---
PQRS Measure Charge Sheet Comment: A 53 yr old female presents today w severe and chronic neck pain secondary to spinal stenosis, spondylosis and facet arthropathy without myelopathy for evaluation s/p BL facet block of the medial branches C4-C5, C5-C6 #2. Pt states she experienced 90 % pain relief x 1 wk s/p procedure. Pt states pain level is provoked at 8/10 in intensity, constant, localized in the lower cervical spine, tightness in character w shooting pain up towards the head and BL shoulders. Pain is provoked by over activity. Pain is alleviated by massage therapy semi monthly x 6 mo in Apr 2022, chiropractic treatments Q 3wks x 6 mo in Jan 2022, medications, ice, topicals, reposition and rest. Oswestry axial pain score of 11. Interventional procedures include MANSI C6-C7 x1, BL MBB C4-C6 x2 Medications include Ibu REVIEW OF ORGAN SYSTEMS: CONSTITUTIONAL: No fevers or chills. No recent weight loss. NEUROLOGICAL: + numbness and tingling along the distal extremities. No seizure disorders or headaches. MUSCULOSKELETAL: + pain PSYCHIATRIC: Denies current depression or suicidal thoughts. Physical Examinations : Constitutional : Cooperative , not in acute distress . Neurologic : Cranial nerve II to XII intact. No focal neurological deficits. Psychiatric : alert & oriented x 3. Matching mood & appropriate affect. Judgment & insight intact. Musculoskeletal : Cervical Spine Motor strength in the deltoid and biceps: Normal right side. Normal Left side Motor strength biceps and the wrist extensors: Normal right side . Normal left side Motor strength in the triceps muscle: Normal right side. Normal left side Deep tendon reflexes: Normal at the biceps. Normal at Brachioradialis. Normal at triceps Vertebral body tenderness Cervical facet loading test: positive bilaterally over C4-C5, C5-C6 Spurling test: positive Neck distraction test: positive bilaterally Mandy sign: positive bilaterally Lumbar spine Motor strength lower extremities ,thigh and legs 5/5 Right side , 5/5 Left side Deep tendon reflexes : Normal Knee Jerk. Normal Ankle Jerk Vertebral body tenderness over [place] Test positive Lumbar facet Loading Test: positive Right / positive Left Range of motion of the lumbar spine Flexion 30 degrees, extension 10 degrees Straight Leg Raise test: Left/ Right positive at degree Jimmie test: positive right / positive left. Severe tenderness over the Sacroiliac joint on the Right / Left sides Gaenslen test: positive bilaterally Seated flexion test: positive bilaterally. Sacral spine : Severe tenderness over the Sacroiliac joint: right side / left side Range of motion: Flexion of the lumbar spine <60 degrees Range of motion: Extension of the lumbar spine <20 degrees Gaenslen's Test positive Jordan's Test positive Jimmie test: positive right side / left side Thigh Thrust Test Sacral Thrust Test Imaging: MRI non contrast of the cervical spine from 05/15/22 reviewed Assessment/ Plan : Cervical stenosis, cervical spondylosis Recommendation of BL RFA C4-C5, C5-C6. Exhibited optimal pain relief w prior MBB procedures. Risks, benefits of procedure discussed and patient verbalized understanding. Admits to aspirin or anti- coagulant use or medical history of diabetes. Protocol for discontinuation/ continuation of medications kerline procedure discussed. Minimal anesthesia provided, if clinically indicated, consisting of Versed and Fentanyl. Ibu 800mg #60 w 1 RF. Use, side effects, adverse reactions and safe storage discussed. Pt acknowledged understanding. All questions answered. I have spent greater than 30 minutes on patient care today. Dr Gross was available by phone for the evaluation of this patient. The time was used to review the medical records including relevant urine studies and Prescription history (MAPs), review of the available imaging, evaluation and examination of the patient, coordination of care with the medical staff and if applicable referring physicians, as well as creation of the medical record PQRS Narrative: Smoking Status Current some day smoker Hx Alcohol Use (MH) Yes: WEEKLY Home Medications: Ambulatory Orders Multivit/Folic Acid/Vit K1 [One-A-Day Women's 50 Plus Tab] 1 each PO DAILY 03/29/20 Folic Acid 1 mg PO DAILY 09/01/22 metHOTREXate sodium [Methotrexate] 15 mg PO WE 09/01/22 Ibuprofen 800 mg PO BID 30 Days #60 tab 12/09/22 Controlled Substance Measures - Controlled Substance Measures Is patient prescribed a controlled substance at discharge?: No
== END ==
LOC: PNWHC3 07:32
PROVIDERS: ATTEND Specialist
DX: M48.02 Spinal stenosis, cervical region (principal); M47.812 Spondylosis without myelopathy or radiculopathy, cervical region; F17.200 Nicotine dependence, unspecified, uncomplicated
CPT/HCPCS: 99211

== ENCOUNTER 2023-02-26 09:36 | Day surgery (SDC) | payer BC ==
[2023-02-26] MEDS ORDERED: LACTATED RINGERS 1,000 ML IV SCH (09:44)
[2023-02-26 10:12] VITALS: TEMP 98.9
[2023-02-26] MEDS ORDERED: fentaNYL (PF) 50 MCG/ML 2 ML AMP ONE (10:33)
[2023-02-26] MEDS ORDERED: MIDAZOLAM 2 MG/2 ML VIAL ONE (10:33)
[2023-02-26] MEDS ORDERED: ROPIVACAINE 5MG/ML 20ML VIAL ONE (10:35)
[2023-02-26] MEDS ORDERED: methylPREDNISolone ACETATE 40 MG/ML 1 ML VIAL ONE (10:35)
--- NOTE | 2023-02-26 10:51 | P.PCN ---
Date of Procedure: 02/26/23 Procedure(s) Performed: PREOPERATIVE DIAGNOSIS: Cervical spondylosis with Facet Arthropathy without myelopathy. POSTOPERATIVE DIAGNOSIS: Cervical spondylosis with Facet Arthropathy without myelopathy. PROCEDURES: Radiofrequency thermocoagulation, Left C4, C5, C6 medial branch with Fluroscopy [place]idence(fluoroscopy was available in Radiology department ) (to denervate the facet joint at Left C4- 5 , C5- 6 ) ANESTHESIA: Monitored anesthesia care as per anesthesia department . EBL: Minimal PROCEDURE INDICATION: The patient with neck pain secondary to cervical arthropathy who had more than 50% relief of her pain with previous diagnostic cervical medial branch block. PROCEDURE DESCRIPTION / TECHNIQUE: The patient was seen and identified in the preoperative area. Risks, benefits, complications, and alternatives were discussed with the patient, the patient agreed to proceed with the procedure and signed the consent. IV was started. Vital signs remained stable throughout the procedure. Patient was taken to the OR and time out was completed. The patient was placed in the Lateral position ( Left side up )on the procedure table. The cervical area was prepped and draped in the usual sterile fashion. Critical pause was taken. Vital signs were closely monitored during the procedure. Conscious sedation was used during the procedure to decrease patients anxiety. Using cross-table lateral fluoroscopy, the centroid of the trapezoid of Left C4, C5, and C6 were identified, marked, and localized with 1% lidocaine. Subsequently, a 20 -qg radiofrequency cannula with a 10-mm active tip was advanced guided by fluoroscopy to the centroid of the trapezoid of Left C4, C5, and C6 . Needle tip position was confirmed at the centroid of the trapezoids of left C4, C5, and C6 with anteroposterior fluoroscopy. Each site then underwent sensory testing at 50 Hz and 0 to 1 volt and motor testing at 2 Hz and 0 to 3 volt with local stimulation, but no radicular symptoms down the arm. Thereafter each sites underwent radiofrequency thermocoagulation at 80 degrees celsius for 90 seconds after injecting 0.5 ml of PF Ropivacaine 0.5 %. After thermocoagulation, 1 ml of the block solution containing Depo-Medrol 40 mg and 3 mL of preservative-free normal saline was injected at the Left C4, C5, and C6 levels after negative aspiration of CSF and blood and with no paresthesias. Cannulas were retracted while injecting lidocaine 1% until the needle is out. Skin was cleansed and bandages were applied. COMPLICATIONS: No acute complications. DISPOSITION / PLANS: The patient was placed in a supine position and transferred to the recovery area in a stable condition for observation and was discharged from the recovery room after meeting discharge criteria. Home discharge instructions given to the patient by the staff. The patient was reexamined prior to discharge. The patient will schedule a follow up in the clinic in 2-4 weeks.
[2023-02-26] MEDS ORDERED: IV FLUID CONTINUATION 800 ML IV ONE (10:56)
--- NOTE | 2023-02-26 11:00 | FL ---
EXAMINATION TYPE: FL guided pain mgmt statistic DATE OF EXAM: 02/26/2023 FLUOROSCOPY Fluoroscopy time of 17 seconds was used during cervical radiofrequency ablation. 0 image/s document/ s the procedure. .[id number] mGym2
[2023-02-26 11:26] VITALS: BP 113/64; PULSE 71; RESP 16
== END 2023-02-26 11:28 | disposition home or self-care (01) ==
LOC: ORPAIN 09:36
PROVIDERS: ATTEND Specialist
DX: M47.812 Spondylosis without myelopathy or radiculopathy, cervical region (principal)
CPT/HCPCS: 64633; 64634 ×2; J2250; J1030; J3010; J2795

== ENCOUNTER 2023-04-20 06:13 | Day surgery (SDC) | payer BC ==
[2023-04-14 14:07] VITALS: BMI 21.9
[2023-04-20 06:52] VITALS: RESP 16; TEMP 96.9
[2023-04-20] MEDS ORDERED: ROPIVACAINE 5MG/ML 20ML VIAL ONE (07:11)
[2023-04-20] MEDS ORDERED: MIDAZOLAM 2 MG/2 ML VIAL ONE (07:11)
[2023-04-20] MEDS ORDERED: fentaNYL (PF) 50 MCG/ML 2 ML AMP ONE (07:11)
[2023-04-20] MEDS ORDERED: methylPREDNISolone ACETATE 40 MG/ML 1 ML VIAL ONE (07:11)
--- NOTE | 2023-04-20 07:31 | P.PCN ---
Date of Procedure: 04/20/23 Procedure(s) Performed: PREOPERATIVE DIAGNOSIS: Cervical spondylosis with Facet Arthropathy without myelopathy. POSTOPERATIVE DIAGNOSIS: Cervical spondylosis with Facet Arthropathy without myelopathy. PROCEDURES: Radiofrequency thermocoagulation, Right C4, C5, C6 medial branch with Fluroscopy [place]idence(fluoroscopy was available in Radiology department ) (to denervate the facet joint at Right C4- 5 , C5- 6 ) ANESTHESIA: Moderate sedations with Versed 2 mg ,and Fentanyle 100 mcg. ( sedations started at 07:11, ended at 07:26 ). EBL: Minimal PROCEDURE INDICATION: The patient with neck pain secondary to cervical arthropathy who had more than 50% relief of her pain with previous diagnostic cervical medial branch block. PROCEDURE DESCRIPTION / TECHNIQUE: The patient was seen and identified in the preoperative area. Risks, benefits, complications, and alternatives were discussed with the patient, the patient agreed to proceed with the procedure and signed the consent. IV was started. Vital signs remained stable throughout the procedure. Patient was taken to the OR and time out was completed. The patient was placed in the Lateral position ( Right side up )on the procedure table. The cervical area was prepped and draped in the usual sterile fashion. Critical pause was taken. Vital signs were closely monitored during the procedure. Conscious sedation was used during the procedure to decrease patients anxiety. Using cross-table lateral fluoroscopy, the centroid of the trapezoid of Right C4, C5, and C6 were identified, marked, and localized with 1% lidocaine. Subsequently, a 20 [id number] radiofrequency cannula with a 10-mm active tip was advanced guided by fluoroscopy to the centroid of the trapezoid of Right C4, C5, and C6 . Needle tip position was confirmed at the centroid of the trapezoids of right C4, C5, and C6 with anteroposterior fluoroscopy. Each site then underwent sensory testing at 50 Hz and 0 to 1 volt and motor testing at 2 Hz and 0 to 3 volt with local stimulation, but no radicular symptoms down the arm. Thereafter each sites underwent radiofrequency thermocoagulation at 80 degrees celsius for 90 seconds after injecting 0.5 ml of PF Ropivacaine 0.5 %. After thermocoagulation, 1 ml of the block solution containing Depo-Medrol 40 mg and 3 mL of preservative-free normal saline was injected at the Right C4, C5, and C6 levels after negative aspiration of CSF and blood and with no paresthesias. Cannulas were retracted while injecting lidocaine 1% until the needle is out. Skin was cleansed and bandages were applied. COMPLICATIONS: No acute complications. DISPOSITION / PLANS: The patient was placed in a supine position and transferred to the recovery area in a stable condition for observation and was discharged from the recovery room after meeting discharge criteria. Home discharge instructions given to the patient by the staff. The patient was reexamined prior to discharge. The patient will schedule a follow up in the clinic in 2-4 weeks.
[2023-04-20] MEDS ORDERED: IV FLUID CONTINUATION 1,000 ML IV ONE (07:32)
[2023-04-20 07:49] VITALS: BP 99/66; PULSE 58
--- NOTE | 2023-04-20 07:49 | FL ---
Fluoroscopy History: RF CERVICAL rf cervical [id number] dap 5.7 fl
== END 2023-04-20 08:02 | disposition home or self-care (01) ==
LOC: ORPAIN 06:13
PROVIDERS: ATTEND Specialist
DX: M47.812 Spondylosis without myelopathy or radiculopathy, cervical region (principal)
CPT/HCPCS: 64633; 64634; 99152; J2250; J1030; J3010; J2795

== ENCOUNTER → 2023-05-05 | Outpatient (CLI) | payer BC ==
[2023-05-05 09:39] VITALS: BP 94/60; PULSE 70; RESP 16; TEMP 97.1
--- NOTE | 2023-05-05 14:28 | P.PAINPG ---
PQRS Measure Charge Sheet Comment: A 53 yr old female presents today w severe and chronic neck pain secondary to spinal stenosis, spondylosis and facet arthropathy without myelopathy for evaluation s/p BL RFA C4-C5, C5-C6. Pt states she experienced 50 % pain relief s/p procedure. Pt states pain level is provoked at 6/10 in intensity, constant, localized in the lower cervical spine, predominantly axial, achy in character without shooting pain. Pain is provoked by over activity. Pain is alleviated by massage therapy semi monthly x 1.5 yrs in Apr 2022, chiropractic treatments Q 3wks x 6 mo in Jan 2022, medications, ice, topicals, reposition and rest. Cervical disability score of 11. Interventional procedures include MANSI C6-C7 x1, L RFA C4-C6 (Feb 2023) and R RFA C4-C6 (Mar 2022) Medications include Ibu REVIEW OF ORGAN SYSTEMS: CONSTITUTIONAL: No fevers or chills. No recent weight loss. NEUROLOGICAL: + numbness and tingling along the distal extremities. No seizure disorders or headaches. MUSCULOSKELETAL: + pain PSYCHIATRIC: Denies current depression or suicidal thoughts. Physical Examinations : Constitutional : Cooperative , not in acute distress . Neurologic : Cranial nerve II to XII intact. No focal neurological deficits. Psychiatric : alert & oriented x 3. Matching mood & appropriate affect. Judgment & insight intact. Musculoskeletal : Cervical Spine Motor strength in the deltoid and biceps: Normal right side. Normal Left side Motor strength biceps and the wrist extensors: Normal right side . Normal left side Motor strength in the triceps muscle: Normal right side. Normal left side Deep tendon reflexes: Normal at the biceps. Normal at Brachioradialis. Normal at triceps Vertebral body tenderness Cervical facet loading test: positive bilaterally over C4-C5, C5-C6 Spurling test: positive Neck distraction test: positive bilaterally Mandy sign: positive bilaterally Lumbar spine Motor strength lower extremities ,thigh and legs 5/5 Right side , 5/5 Left side Deep tendon reflexes : Normal Knee Jerk. Normal Ankle Jerk Vertebral body tenderness over [place] Test positive Lumbar facet Loading Test: positive Right / positive Left Range of motion of the lumbar spine Flexion 30 degrees, extension 10 degrees Straight Leg Raise test: Left/ Right positive at degree Jimmie test: positive right / positive left. Severe tenderness over the Sacroiliac joint on the Right / Left sides Gaenslen test: positive bilaterally Seated flexion test: positive bilaterally. Sacral spine : Severe tenderness over the Sacroiliac joint: right side / left side Range of motion: Flexion of the lumbar spine <60 degrees Range of motion: Extension of the lumbar spine <20 degrees Gaenslen's Test positive Jordan's Test positive Jimmie test: positive right side / left side Thigh Thrust Test Sacral Thrust Test Imaging: MRI non contrast of the cervical spine from 05/15/22 reviewed Assessment/ Plan : Cervical stenosis, cervical spondylosis Will explore additional treatment options and may RTC on an as needed basis. All questions answered. I have spent greater than 30 minutes on patient care today. Dr Gross was available by phone for the evaluation of this patient. The time was used to review the medical records including relevant urine studies and Prescription history (MAPs), review of the available imaging, evaluation and examination of the patient, coordination of care with the medical staff and if applicable referring physicians, as well as creation of the medical record PQRS Narrative: Smoking Status Current some day smoker Hx Alcohol Use (MH) Yes: WEEKLY Home Medications: Ambulatory Orders Multivit/Folic Acid/Vit K1 [One-A-Day Women's 50 Plus Tab] 1 each PO DAILY 03/29/20 Folic Acid 1 mg PO DAILY 09/01/22 metHOTREXate sodium [Methotrexate] 15 mg PO WE 09/01/22 Ibuprofen 800 mg PO BID 30 Days #60 tab 03/23/23 Controlled Substance Measures - Controlled Substance Measures Is patient prescribed a controlled substance at discharge?: No
== END ==
LOC: PNWHC3 09:01
PROVIDERS: ATTEND Specialist
DX: M47.812 Spondylosis without myelopathy or radiculopathy, cervical region (principal); M48.02 Spinal stenosis, cervical region; F17.200 Nicotine dependence, unspecified, uncomplicated
CPT/HCPCS: 99211

== ENCOUNTER → 2023-06-30 | Outpatient (CLI) | payer BC ==
--- NOTE | 2023-07-01 14:39 | MM ---
Reason for Exam: Screening (asymptomatic). Last mammogram was performed 1 year(s) and 5 month(s) ago. Patient History: Menarche at age 14. First Full-Term at age 25. Postmenopausal. Previous Atypical Lobular Hyperplasia at age 52. 03/27/2022, High risk MG stereo VAD BX RT on the right side. Risk Values: Denia 5 year model risk: 2.7%. NCI Lifetime model risk: 18.1%. Prior Study Comparison: 12/27/2017 Bilateral MG 3D screening mammo w/cad, [facility]. 08/22/2018 Bilateral MG 3D diag mammo w/cad JUD - 2, [facility]. 01/25/2020 Bilateral MG screening mammo w CAD - 2, [facility]. 02/16/2022 Bilateral MG 3D screening mammo w/cad, [facility]. 02/20/2022 Right MG 3D work up w/cad RT, [facility]. 09/28/2022 Right MG 3D diag mammo w/cad RT, [facility]. Tissue Density: The breasts are heterogeneously dense, which may obscure small masses. Findings: Analyzed By CAD. There is no suspicious group of microcalcifications. There is an asymmetric density lower left MLO view 3.4 cm from the nipple likely located centrally on the CC view and measuring 7 mm. Additional views are recommended. No nodules or masses right breast. Microclip marker right breast from prior biopsy. Overall Assessment: Incomplete: need additional imaging evaluation, BI-RAD 0 Management: Diagnostic Mammogram of the left breast. . Patient should continue monthly self-breast exams. A clinical breast exam by your physician is recommended on an annual basis. This exam should not preclude additional follow-up of suspicious palpable abnormalities. Note on Denia scores and lifetime risk: 1. A Denia score greater than 3% is considered moderate risk. If this is the case, consider specialist referral to assess eligibility for a risk reducing agent. 2. If overall lifetime risk for the development of breast cancer is 20% or higher, the patient may qualify for future screening with alternating mammogram and breast MRI. Electronically signed and approved by: Wilberto Frances M.D. Radiologis
== END | disposition home or self-care (01) ==
LOC: RADMAMWWP 08:47
PROVIDERS: ATTEND Family Medicine
DX: Z12.31 Encounter for screening mammogram for malignant neoplasm of breast (principal); Z78.0 Asymptomatic menopausal state
CPT/HCPCS: 77067

== ENCOUNTER → 2023-07-07 | Outpatient (CLI) | payer BC ==
--- NOTE | 2023-07-07 09:20 | MM ---
Reason for Exam: Additional evaluation requested from abnormal screening. Last screening mammogram was performed less than 1 month ago. Patient History: Menarche at age 14. First Full-Term at age 25. Postmenopausal. Previous Atypical Lobular Hyperplasia at age 52. 03/27/2022, High risk MG stereo VAD BX RT on the right side. Risk Values: Denia 5 year model risk: 2.7%. NCI Lifetime model risk: 18.1%. Prior Study Comparison: 12/27/2017 Bilateral MG 3D screening mammo w/cad, [facility]. 08/22/2018 Bilateral MG 3D diag mammo w/cad JUD - 2, [facility]. 01/25/2020 Bilateral MG screening mammo w CAD - 2, [facility]. 02/16/2022 Bilateral MG 3D screening mammo w/cad, [facility]. 02/20/2022 Right MG 3D work up w/cad RT, [facility]. 09/28/2022 Right MG 3D diag mammo w/cad RT, [facility]. 06/30/2023 Bilateral MG screening mammo w CAD, [facility]. Tissue Density: Left: The breasts are extremely dense, which lowers the sensitivity of mammography. Findings: Analyzed By CAD. Pattern is stable. Impression no persistent suspicious density is evident. Mediolateral view appears unremarkable. No suspicious groups of microcalcifications, spiculated or lobular masses, architectural distortion or other secondary signs of malignancy are mammographically apparent. Overall Assessment: Probably benign, BI-RAD 3 Management: Diagnostic Mammogram of the left breast in 6 months. A negative mammogram report should not preclude additional follow up of suspicious palpable abnormalities. Patient should continue monthly self breast exam. A clinical breast exam by your physician is recommended on an annual basis and results should be correlated with mammographic findings. Note on Denia scores and lifetime risk: 1. A Denia score greater than 3% is considered moderate risk. If this is the case, consider specialist referral to assess eligibility for a risk reducing agent. 2. If overall lifetime risk for the development of breast cancer is 20% or higher, the patient may qualify for future screening with alternating mammogram and breast MRI. Electronically signed and approved by: Daniel Thao D.O. Radiologis
== END | disposition home or self-care (01) ==
LOC: RADMAMWWP 08:16
PROVIDERS: ATTEND Family Medicine
DX: R92.342 Mammographic extreme density, left breast (principal); Z78.0 Asymptomatic menopausal state
CPT/HCPCS: 77061; 77065

== ENCOUNTER 2023-08-18 06:59 | Day surgery (SDC) | payer BC ==
[2023-08-17 09:46] VITALS: BMI 21.9
[~2023-08-18 06:59] MED LIST changes: -LACTATED RINGERS 1,000 ML IV SCH; +LIDOCAINE 1% (10MG/ML) FOR IV START INTRADERMA PRN
[2023-08-18] MEDS ORDERED: ONDANSETRON 4 MG/2 ML VIAL IVP PRN (07:00)
[2023-08-18] MEDS: LACTATED RINGERS 1,000 ML IV SCH (07:12)
[2023-08-18 08:03] VITALS: RESP 16; TEMP 97.7
[2023-08-18] MEDS ORDERED: PROPOFOL 10 MG/ML 20 ML VIAL IV ONE (08:20)
--- NOTE | 2023-08-18 08:40 | P.PCN ---
Date of Procedure: 08/18/23 Procedure(s) Performed: BRIEF HISTORY: Patient is a 53-year-old pleasant female scheduled for an elective colonoscopy as a part of evaluation by history of colon polyps/colonoscopy was 3 years ago. PROCEDURE PERFORMED: Colonoscopy. PREOPERATIVE DIAGNOSIS: History of colon polyps. IV sedation per Anesthesia. PROCEDURE: After informed consent was obtained, the patient, was brought into the endoscopy unit. IV sedation was administered by Anesthesia under continuous monitoring. Digital rectal examination was normal. Initially the Olympus CF-160 flexible video colonoscope was then inserted in the rectum, gradually advanced into the cecum without any difficulty. Careful examination was performed as the scope was gradually being withdrawn. Ileocecal valve and the appendiceal orifice were visualized and appeared normal. Prep was excellent. Mucosa of the cecum, ascending colon, transverse colon, descending colon, sigmoid colon, and rectum appeared normal. Sigmoid diverticulosis retroflexion was performed in the rectum and no lesions were seen. The patient tolerated the procedure well. IMPRESSION: Normal-appearing colon from rectum to cecum no evidence of colorectal neoplasia. Scattered sigmoid diverticulosis. RECOMMENDATIONS: Findings of this examination were discussed with the patient as well as her family. She was advised to have repeat screening colonoscopy in 10 years..
[2023-08-18 09:51] VITALS: BP 120/86; PULSE 89
== END 2023-08-18 09:12 | disposition home or self-care (01) ==
LOC: ORWHC2ENDO 06:59
PROVIDERS: ATTEND Internal Medicine Gastroenterology
DX: Z12.11 Encounter for screening for malignant neoplasm of colon (principal); K57.30 Diverticulosis of large intestine without perforation or abscess without bleeding; M19.90 Unspecified osteoarthritis, unspecified site; Z86.010 Personal history of colon polyps; Z79.1 Long term (current) use of non-steroidal anti-inflammatories (NSAID); Z79.899 Other long term (current) drug therapy
CPT/HCPCS: 45378; J2704

== ENCOUNTER 2024-02-13 12:55 | Inpatient (IN) | payer BC ==
[2024-02-13] MEDS: SODIUM CHLORIDE 0.9% 1,000 ML IV STA (13:46)
[2024-02-13] MEDS: ONDANSETRON 4 MG/2 ML VIAL IVP STA (14:08)
[2024-02-13] MEDS: FAMOTIDINE 20 MG/2 ML VIAL IV STA (14:10)
--- NOTE | 2024-02-13 14:11 | ED ---
General Adult HPI - General Chief complaint: Weakness Stated complaint: Weakness Time Seen by Provider: 02/13/24 12:59 Source: patient, RN notes reviewed Mode of arrival: ambulatory Limitations: no limitations - History of Present Illness Initial comments: Patient is a 54-year-old female present to the emergency department with concerns with not feeling well. Onset of symptoms was a week ago. Patient has had a lot of fatigue. Patient had questionable fever however more chills at onset. Patient has had nausea and decreased appetite significantly. Very limited oral intake. Patient did have some mild urinary urgency however that has resolved. No abdominal pain. No chest pain or cough. No isolated area of weakness. Patient is on immune suppressive medication for rheumatoid arthritis - Related Data Home Medications Medication Instructions Recorded Confirmed Folic Acid 1 mg PO DAILY 09/01/22 02/13/24 metHOTREXate sodium [Methotrexate] 17.5 mg PO WE 09/01/22 02/13/24 Acetaminophen Tab [Tylenol Tab] 1,000 mg PO Q6HR PRN 02/13/24 02/13/24 Ciprofloxacin HCl [Cipro] 500 mg PO Q12HR 02/13/24 02/13/24 Ibuprofen 800 mg PO TID PRN 02/13/24 02/13/24 Simponi Injection 137.5 mg SQ Q56D 02/14/24 02/14/24 Allergies Allergy/AdvReac Type Severity Reaction Status Date / Time No Known Drug Allergies Allergy Unknown Verified 02/13/24 16:27 Review of Systems ROS Statement: Those systems with pertinent positive or pertinent negative responses have been documented in the HPI. ROS Other: All systems not noted in ROS Statement are negative. Constitutional: Denies: fever Eyes: Denies: eye pain ENT: Denies: ear pain Respiratory: Reports: as per HPI Cardiovascular: Denies: chest pain Endocrine: Reports: fatigue Gastrointestinal: Reports: nausea. Denies: abdominal pain Musculoskeletal: Denies: back pain Neurological: Denies: headache Past Medical History Past Medical History: Osteoarthritis (OA), Rheumatoid Arthritis (RA) Additional Past Medical History / Comment(s): Chronic muscle pain, arthritis since she had Covid Jan 2021. History of Any Multi-Drug Resistant Organisms: None Reported Past Surgical History: Orthopedic Surgery Additional Past Surgical History / Comment(s): Right knee surgery 1984, colonoscopy. pain clinic visits Past Anesthesia/Blood Transfusion Reactions: No Reported Reaction Past Psychological History: No Psychological Hx Reported Smoking Status: Former smoker Past Alcohol Use History: Occasional Past Drug Use History: None Reported - Past Family History Father Family Medical History: Cancer Additional Family Medical History / Comment(s): Lung cancer with mets . General Exam Limitations: no limitations General appearance: alert, in no apparent distress Head exam: Present: normocephalic Eye exam: Present: normal appearance ENT exam: Present: normal oropharynx Neck exam: Present: normal inspection Respiratory exam: Present: normal lung sounds bilaterally Cardiovascular Exam: Present: tachycardia GI/Abdominal exam: Present: soft. Absent: tenderness Extremities exam: Present: normal inspection. Absent: pedal edema, calf tenderness Neurological exam: Present: alert, oriented X3, CN II-XII intact. Absent: motor sensory deficit Psychiatric exam: Present: normal affect, normal mood Skin exam: Present: normal color Course Vital Signs 02/13/24 02/13/24 02/13/24 13:05 15:41 18:40 Temperature 98.2 F 103.5 F H Pulse Rate 132 H 113 H 112 H Respiratory 18 18 20 Rate Blood Pressure 100/71 101/70 114/73 O2 Sat by Pulse 93 L 97 94 L Oximetry 02/13/24 02/13/24 20:11 22:00 Temperature 99.7 F H Pulse Rate 109 H 108 H Respiratory 20 18 Rate Blood Pressure 107/60 116/70 O2 Sat by Pulse 98 97 Oximetry EKG Findings - EKG Results: EKG: interpreted by ERMD (Right axis.), sinus rhythm, normal QRS, normal ST/T EKG shows: tachycardia Medical Decision Making - Medical Decision Making Was pt. sent in by a medical professional or institution (, PA, BULLET SWAGING MACHINE OPERATOR, urgent care, hospital, or half-way...) When possible be specific @ -No Did you speak to anyone other than the patient for history (EMS, parent, family, police, friend...)? What history was obtained from this source @ -Family is present helps provide history of symptoms and past medical history including rheumatoid Did you review nursing and triage notes (agree or disagree)? Why? @ -I reviewed and agree with nursing and triage notes Were old charts reviewed (outside hosp., previous admission, EMS record, old EKG, old radiological studies, urgent care reports/EKG's, half-way records)? Report findings @ -Previous liver enzymes reviewed which are normal, different from today Differential Diagnosis (chest pain, altered mental status, abdominal pain women, abdominal pain men, vaginal bleeding, weakness, fever, dyspnea, syncope, headache, dizziness, GI bleed, back pain, seizure, CVA, palpatations, mental health, musculoskeletal)? @ -Differential Weakness: Hypoglycemia, shock, sepsis, hyponatremia, anemia, infection, VA, ETOH, adverse medicine reaction, overdose, stroke, this is not meant to be an all-inclusive list. EKG interpreted by me (3pts min.). @ -As above X-rays interpreted by me (1pt min.). @ -Chest x-ray shows some mild increased markings lower lungs. This could represent atelectasis or infiltrate CT interpreted by me (1pt min.). @ -None done U/S interpreted by me (1pt. min.). @ -None done What testing was considered but not performed or refused? (CT, X-rays, U/S, labs)? Why? @ -None What meds were considered but not given or refused? Why? @ -None Did you discuss the management of the patient with other professionals (professionals i.e. , PA, BULLET SWAGING MACHINE OPERATOR, lab, RT, psych nurse, social service agency director, upper doubler, teacher, property portfolio officer, casey saw operator)? Give summary @ -Case discussed with sound physician, who would like additional testing prior to disposition. He would like hepatitis panel and ultrasound and coag studies. These have been added Was smoking cessation discussed for >3mins.? @ -No Was critical care preformed (if so, how long)? @ -No Were there social determinants of health that impacted care today? How? (Homelessness, low income, unemployed, alcoholism, drug addiction, henderson sportation, low edu. Level, literacy, decrease access to med. care, intermediate, rehab)? @ -No Was there de-escalation of care discussed even if they declined (Discuss DNR or withdrawal of care, Hospice)? DNR status @ -No What co-morbidities impacted this encounter? (DM, HTN, Smoking, COPD, CAD, Cancer, CVA, ARF, Chemo, Hep., AIDS, mental health diagnosis, sleep apnea, morbid obesity)? @ -None Was patient admitted / discharged? Hospital course, mention meds given and route, prescriptions, significant lab abnormalities, going to OR and other pertinent info. @ -Patient presents emergency department for not feeling well for the past week, no appetite and concerns for dehydration. Patient does have hyponatremia and elevation of liver enzymes. Further tests ordered. Patient case will be signed out to Dr. Denton for final disposition pending additional orders. Diagnosis: Weakness, acute Patient was admitted - Lab Data Result diagrams: 02/17/24 02:27 02/17/24 02:27 Lab Results 02/13/24 02/13/24 02/13/24 Range/Units 13:30 13:30 13:45 WBC 6.4 (3.8-10.6) k/uL RBC 4.16 (3.80-5.40) m/uL Hgb 13.5 (11.4-16.0) gm/dL Hct 39.5 (34.0-46.0) % MCV 94.9 (80.0-100.0) fL MCH 32.4 (25.0-35.0) pg MCHC 34.1 (31.0-37.0) g/dL RDW 13.2 (11.5-15.5) % Plt Count 144 L (150-450) k/uL MPV 10.3 Neutrophils % 71 % Lymphocytes % 19 % Monocytes % 4 % Eosinophils % 0 % Basophils % 2 % Neutrophils # 4.6 (1.3-7.7) k/uL Lymphocytes # 1.2 (1.0-4.8) k/uL Monocytes # 0.3 (0-1.0) k/uL Eosinophils # 0.0 (0-0.7) k/uL Basophils # 0.1 (0-0.2) k/uL PT (10.0-12.5) sec INR (<1.2) APTT (22.0-30.0) sec D-Dimer (<0.60) mg/L FEU Sodium 129 L (137-145) mmol/L Potassium 3.8 (3.5-5.1) mmol/L Chloride 92 L (98-107) mmol/L Carbon Dioxide 29 (22-30) mmol/L Anion Gap 8 mmol/L BUN 16 (7-17) mg/dL Creatinine 0.75 (0.52-1.04) mg/dL Est GFR (CKD-EPI)AfAm >90 (>60 ml/min/1.73 sqM) Est GFR (CKD-EPI)NonAf 90 (>60 ml/min/1.73 sqM) Glucose 126 H (74-99) mg/dL Calcium 8.2 L (8.4-10.2) mg/dL Magnesium (1.6-2.3) mg/dL Total Bilirubin 1.1 (0.2-1.3) mg/dL AST 782 H (14-36) U/L ALT 444 H (4-34) U/L Alkaline Phosphatase 431 H (38-126) U/L Creatine Kinase (30-135) U/L Troponin I (0.000-0.034) ng/mL NT-Pro-B Natriuret Pep pg/mL Total Protein 6.9 (6.3-8.2) g/dL Albumin 3.7 (3.5-5.0) g/dL Amylase (30-110) U/L Lipase (23-300) U/L TSH (0.465-4.680) mIU/L Free T4 (0.78-2.19) ng/dL Free T3 pg/mL (2.30-4.20) pg/mL Urine Color Urine Appearance (Clear) Urine pH (5.0-8.0) Ur Specific Willard (1.001-1.035) Urine Protein (Negative) Urine Glucose (UA) (Negative) Urine Ketones (Negative) Urine Blood (Negative) Urine Nitrite (Negative) Urine Bilirubin (Negative) Urine Urobilinogen (<2.0) mg/dL Ur Leukocyte Esterase (Negative) Urine RBC (0-5) /hpf Urine WBC (0-5) /hpf Ur Squamous Epith Cells (0-4) /hpf Urine Mucus (None) /hpf Hepatitis A IgM Ab (Nonreactive) Hep Bs Antigen (Nonreactive) Hep B Core IgM Ab (Nonreactive) Hep C IgG Ab (Nonreactive) Heterophile Antibody (Negative) Influenza Type A (PCR) Not Detected (Not Detectd) Influenza Type B (PCR) Not Detected (Not Detectd) RSV (PCR) Not Detected (Not Detectd) SARS-CoV-2 (PCR) Not Detected (Not Detectd) 02/13/24 02/13/24 02/13/24 Range/Units 14:28 14:28 14:28 WBC (3.8-10.6) k/uL RBC (3.80-5.40) m/uL Hgb (11.4-16.0) gm/dL Hct (34.0-46.0) % MCV (80.0-100.0) fL MCH (25.0-35.0) pg MCHC (31.0-37.0) g/dL RDW (11.5-15.5) % Plt Count (150-450) k/uL MPV Neutrophils % % Lymphocytes % % Monocytes % % Eosinophils % % Basophils % % Neutrophils # (1.3-7.7) k/uL Lymphocytes # (1.0-4.8) k/uL Monocytes # (0-1.0) k/uL Eosinophils # (0-0.7) k/uL Basophils # (0-0.2) k/uL PT (10.0-12.5) sec INR (<1.2) APTT (22.0-30.0) sec D-Dimer (<0.60) mg/L FEU Sodium (137-145) mmol/L Potassium (3.5-5.1) mmol/L Chloride (98-107) mmol/L Carbon Dioxide (22-30) mmol/L Anion Gap mmol/L BUN (7-17) mg/dL Creatinine (0.52-1.04) mg/dL Est GFR (CKD-EPI)AfAm (>60 ml/min/1.73 sqM) Est GFR (CKD-EPI)NonAf (>60 ml/min/1.73 sqM) Glucose (74-99) mg/dL Calcium (8.4-10.2) mg/dL Magnesium 2.0 (1.6-2.3) mg/dL Total Bilirubin (0.2-1.3) mg/dL AST (14-36) U/L ALT (4-34) U/L Alkaline Phosphatase (38-126) U/L Creatine Kinase (30-135) U/L Troponin I <0.012 (0.000-0.034) ng/mL NT-Pro-B Natriuret Pep 92 pg/mL Total Protein (6.3-8.2) g/dL Albumin (3.5-5.0) g/dL Amylase (30-110) U/L Lipase (23-300) U/L TSH 0.520 (0.465-4.680) mIU/L Free T4 1.05 (0.78-2.19) ng/dL Free T3 pg/mL 0.90 L (2.30-4.20) pg/mL Urine Color Yellow Urine Appearance Clear (Clear) Urine pH 6.0 (5.0-8.0) Ur Specific Willard 1.029 (1.001-1.035) Urine Protein 1+ H (Negative) Urine Glucose (UA) Negative (Negative) Urine Ketones 1+ H (Negative) Urine Blood Negative (Negative) Urine Nitrite Negative (Negative) Urine Bilirubin 1+ H (Negative) Urine Urobilinogen 8.0 (<2.0) mg/dL Ur Leukocyte Esterase Negative (Negative) Urine RBC <1 (0-5) /hpf Urine WBC 4 (0-5) /hpf Ur Squamous Epith Cells <1 (0-4) /hpf Urine Mucus Moderate H (None) /hpf Hepatitis A IgM Ab (Nonreactive) Hep Bs Antigen (Nonreactive) Hep B Core IgM Ab (Nonreactive) Hep C IgG Ab (Nonreactive) Heterophile Antibody (Negative) Influenza Type A (PCR) (Not Detectd) Influenza Type B (PCR) (Not Detectd) RSV (PCR) (Not Detectd) SARS-CoV-2 (PCR) (Not Detectd) 02/13/24 02/13/24 02/13/24 Range/Units 16:19 16:19 16:19 WBC (3.8-10.6) k/uL RBC (3.80-5.40) m/uL Hgb (11.4-16.0) gm/dL Hct (34.0-46.0) % MCV (80.0-100.0) fL MCH (25.0-35.0) pg MCHC (31.0-37.0) g/dL RDW (11.5-15.5) % Plt Count (150-450) k/uL MPV Neutrophils % % Lymphocytes % % Monocytes % % Eosinophils % % Basophils % % Neutrophils # (1.3-7.7) k/uL Lymphocytes # (1.0-4.8) k/uL Monocytes # (0-1.0) k/uL Eosinophils # (0-0.7) k/uL Basophils # (0-0.2) k/uL PT 13.7 H (10.0-12.5) sec INR 1.3 H (<1.2) APTT 31.4 H (22.0-30.0) sec D-Dimer 7.37 H (<0.60) mg/L FEU Sodium (137-145) mmol/L Potassium (3.5-5.1) mmol/L Chloride (98-107) mmol/L Carbon Dioxide (22-30) mmol/L Anion Gap mmol/L BUN (7-17) mg/dL Creatinine (0.52-1.04) mg/dL Est GFR (CKD-EPI)AfAm (>60 ml/min/1.73 sqM) Est GFR (CKD-EPI)NonAf (>60 ml/min/1.73 sqM) Glucose (74-99) mg/dL Calcium (8.4-10.2) mg/dL Magnesium (1.6-2.3) mg/dL Total Bilirubin (0.2-1.3) mg/dL AST (14-36) U/L ALT (4-34) U/L Alkaline Phosphatase (38-126) U/L Creatine Kinase 56 (30-135) U/L Troponin I (0.000-0.034) ng/mL NT-Pro-B Natriuret Pep pg/mL Total Protein (6.3-8.2) g/dL Albumin (3.5-5.0) g/dL Amylase 49 (30-110) U/L Lipase 325 H (23-300) U/L TSH (0.465-4.680) mIU/L Free T4 (0.78-2.19) ng/dL Free T3 pg/mL (2.30-4.20) pg/mL Urine Color Urine Appearance (Clear) Urine pH (5.0-8.0) Ur Specific Willard (1.001-1.035) Urine Protein (Negative) Urine Glucose (UA) (Negative) Urine Ketones (Negative) Urine Blood (Negative) Urine Nitrite (Negative) Urine Bilirubin (Negative) Urine Urobilinogen (<2.0) mg/dL Ur Leukocyte Esterase (Negative) Urine RBC (0-5) /hpf Urine WBC (0-5) /hpf Ur Squamous Epith Cells (0-4) /hpf Urine Mucus (None) /hpf Hepatitis A IgM Ab (Nonreactive) Hep Bs Antigen (Nonreactive) Hep B Core IgM Ab (Nonreactive) Hep C IgG Ab (Nonreactive) Heterophile Antibody Negative (Negative) Influenza Type A (PCR) (Not Detectd) Influenza Type B (PCR) (Not Detectd) RSV (PCR) (Not Detectd) SARS-CoV-2 (PCR) (Not Detectd) 02/13/24 Range/Units 16:19 WBC (3.8-10.6) k/uL RBC (3.80-5.40) m/uL Hgb (11.4-16.0) gm/dL Hct (34.0-46.0) % MCV (80.0-100.0) fL MCH (25.0-35.0) pg MCHC (31.0-37.0) g/dL RDW (11.5-15.5) % Plt Count (150-450) k/uL MPV Neutrophils % % Lymphocytes % % Monocytes % % Eosinophils % % Basophils % % Neutrophils # (1.3-7.7) k/uL Lymphocytes # (1.0-4.8) k/uL Monocytes # (0-1.0) k/uL Eosinophils # (0-0.7) k/uL Basophils # (0-0.2) k/uL PT (10.0-12.5) sec INR (<1.2) APTT (22.0-30.0) sec D-Dimer (<0.60) mg/L FEU Sodium (137-145) mmol/L Potassium (3.5-5.1) mmol/L Chloride (98-107) mmol/L Carbon Dioxide (22-30) mmol/L Anion Gap mmol/L BUN (7-17) mg/dL Creatinine (0.52-1.04) mg/dL Est GFR (CKD-EPI)AfAm (>60 ml/min/1.73 sqM) Est GFR (CKD-EPI)NonAf (>60 ml/min/1.73 sqM) Glucose (74-99) mg/dL Calcium (8.4-10.2) mg/dL Magnesium (1.6-2.3) mg/dL Total Bilirubin (0.2-1.3) mg/dL AST (14-36) U/L ALT (4-34) U/L Alkaline Phosphatase (38-126) U/L Creatine Kinase (30-135) U/L Troponin I (0.000-0.034) ng/mL NT-Pro-B Natriuret Pep pg/mL Total Protein (6.3-8.2) g/dL Albumin (3.5-5.0) g/dL Amylase (30-110) U/L Lipase (23-300) U/L TSH (0.465-4.680) mIU/L Free T4 (0.78-2.19) ng/dL Free T3 pg/mL (2.30-4.20) pg/mL Urine Color Urine Appearance (Clear) Urine pH (5.0-8.0) Ur Specific Willard (1.001-1.035) Urine Protein (Negative) Urine Glucose (UA) (Negative) Urine Ketones (Negative) Urine Blood (Negative) Urine Nitrite (Negative) Urine Bilirubin (Negative) Urine Urobilinogen (<2.0) mg/dL Ur Leukocyte Esterase (Negative) Urine RBC (0-5) /hpf Urine WBC (0-5) /hpf Ur Squamous Epith Cells (0-4) /hpf Urine Mucus (None) /hpf Hepatitis A IgM Ab Nonreactive (Nonreactive) Hep Bs Antigen Nonreactive (Nonreactive) Hep B Core IgM Ab Nonreactive (Nonreactive) Hep C IgG Ab Nonreactive (Nonreactive) Heterophile Antibody (Negative) Influenza Type A (PCR) (Not Detectd) Influenza Type B (PCR) (Not Detectd) RSV (PCR) (Not Detectd) SARS-CoV-2 (PCR) (Not Detectd) Disposition Clinical Impression: Weak, Hyponatremia Disposition: ADMITTED IP TO THIS HOSP Condition: Serious Is patient prescribed a controlled substance at d/c from ED?: No
[2024-02-13 14:23] LABS: ALT 444 U/L (4-34); African American GFR (CKD) >90 (>60 ml/min/1.73 sqM); Albumin 3.7 g/dL (3.5-5.0); Alkaline Phosphatase 431 U/L (38-126); Anion Gap 8 mmol/L; Blood Urea Nitrogen 16 mg/dL (7-17); Calcium 8.2 mg/dL (8.4-10.2); Carbon Dioxide 29 mmol/L (22-30); Chloride 92 mmol/L (98-107); Glucose 126 mg/dL (74-99); Non-African American GFR(CKD) 90 (>60 ml/min/1.73 sqM); Potassium 3.8 mmol/L (3.5-5.1); Sodium 129 mmol/L (137-145); Total Bilirubin 1.1 mg/dL (0.2-1.3); Total Protein 6.9 g/dL (6.3-8.2)
[2024-02-13 14:30] LABS: Appearance,Urine Clear (Clear); Bilirubin,Urine 1+ (Negative); Blood,Urine Negative (Negative); Color,Urine Yellow; Glucose,Urine (UA) Negative (Negative); Ketones,Urine 1+ (Negative); Leukocyte Esterase,Urine Negative (Negative); Mucus,Urine Moderate /hpf; Nitrite,Urine Negative (Negative); Protein,Urine 1+ (Negative); RBC,Urine <1 /hpf (0-5); Specific Gravity,Urine 1.029 (1.001-1.035); Squamous Epithelial Cell,Urine <1 /hpf (0-4); WBC,Urine 4 /hpf (0-5)
[2024-02-13 14:37] LABS: AST 782 U/L (14-36)
--- NOTE | 2024-02-13 14:41 | XR ---
EXAMINATION TYPE: XR chest 2V DATE OF EXAM: 02/13/2024 CLINICAL HISTORY: Fatigue chills and malaise. TECHNIQUE: Frontal and lateral views of the chest are obtained. COMPARISON: None FINDINGS: There is patchy increased bibasilar opacity. No pleural effusion or pneumothorax is seen. The cardiac silhouette size is within normal limits. The osseous structures are intact. IMPRESSION: Patchy bibasilar acute infiltrates and/or atelectasis. [facility], , 02/13/2024 2:38 PM
[2024-02-13 14:49] LABS: Basophils # (A) 0.1 k/uL (0-0.2); Basophils % (A) 2 %; Eosinophils % (A) 0 %; HCT 39.5 % (34.0-46.0); HGB 13.5 gm/dL (11.4-16.0); Lymphocytes # (A) 1.2 k/uL (1.0-4.8); Lymphocytes % (A) 19 %; MCH 32.4 pg (25.0-35.0); MCHC 34.1 g/dL (31.0-37.0); MCV 94.9 fL (80.0-100.0); Mean Platelet Volume 10.3; Monocytes # (A) 0.3 k/uL (0-1.0); Monocytes % (A) 4 %; Neutrophils # (A) 4.6 k/uL (1.3-7.7); Neutrophils % (A) 71 %; Platelet Count 144 k/uL (150-450); RBC 4.16 m/uL (3.80-5.40); RDW 13.2 % (11.5-15.5); WBC 6.4 k/uL (3.8-10.6)
[2024-02-13 15:44] LABS: T4, Free (Free Thyroxine) 1.05 ng/dL (0.78-2.19)
[2024-02-13 16:50] LABS: Amylase 49 U/L (30-110); Creatine Kinase 56 U/L (30-135); Lipase 325 U/L (23-300)
[2024-02-13 16:54] LABS: INR 1.3 (<1.2); Prothrombin Time 13.7 sec (10.0-12.5)
[2024-02-13 16:55] LABS: Partial Thromboplastin Time 31.4 sec (22.0-30.0)
--- NOTE | 2024-02-13 17:22 | US ---
EXAMINATION TYPE: US gallbladder DATE OF EXAM: 02/13/2024 COMPARISON: NONE CLINICAL INDICATION: Female, 54 years old with history of and liver, hepatitis; Abnormal labs TECHNIQUE: Grayscale and color Doppler imaging of the right upper quadrant was performed. FINDINGS: EXAM MEASUREMENTS: Liver Length: 17.3 cm Gallbladder Wall: 0.2 cm CBD: 0.2 cm Right Kidney: 11.4 x 4.6 x 4.7 cm INSPECTOR MACHINE CUT GLASS NOTES: Pancreas: wnl Liver: Visualized portions appeared wnl at this time Gallbladder: wnl Evidence for sonographic Wu's sign: No CBD: wnl Right Kidney: No evidence of hydro IMPRESSION: No evidence for acute process. [facility], , 02/13/2024 5:19 PM
--- NOTE | 2024-02-13 18:05 | CT ---
EXAMINATION TYPE: CT chest angio for PE DATE OF EXAM: 02/13/2024 5:44 PM COMPARISON: Chest radiograph from same day. CLINICAL INDICATION: Female, 54 years old with history of dyspnea, possible PE; Pt to ED c/o fatigue, chills, and malaise for the past week. Denies n/v/d, headache, sore throat, cough, or SOB. TECHNIQUE/CONTRAST: CTA scan of the thorax is performed with IV Contrast, patient injected with 100ml mL of Isovue 370, M IP images are created and reviewed these are created on a separate workstation.. CT DLP: 239 mGycm, Automated exposure control for dose reduction was used. FINDINGS: Lungs/Pleura: No evidence of focal consolidation, pleural effusion or pneumothorax. Scattered pulmona ry nodules the largest in left upper lung measuring 13 x 11 mm. More inferiorly measuring r4 mm the l eft upper lung. Groundglass halo around the solid pulmonary nodule in the left upper lung apex series 411 image 33 measuring 4 mm. Right lung apex nodule measuring 4 mm in more inferiorly measuring 7 mm . Bilateral lower lobe airspace opacities most pronounced on the left. Airway: Large airways are patent. Heart: Heart is within normal limits for size. Vasculature: There is no evidence for a filling defect within the pulmonary vasculature to suggest ac phyllis pulmonary embolism. The pulmonary artery is of normal size. Mediastinum: Prominent lymph nodes present with bilateral fullness to the jordan. Initially AP window l ymph node measuring 16 mm right low paratracheal lymph node measuring 12 mm. Right high paratracheal lymph node measuring 9 mm. Subcarinal lymph node measuring up to 11 mm. Musculoskeletal: No acute osseous abnormalities Soft Tissues/lymph nodes: Unremarkable. Lower neck: No significant findings. Upper Abdomen: No significant findings. IMPRESSION: 1. No evidence of pulmonary embolism. 2. Airspace opacities in the lung bases with scattered pulmonary nodules. Given mediastinal lymphaden opathy findings concerning for either malignancy with metastatic disease with superimposed infection not excluded. Further workup recommended. Consider PET/CT. At a minimum a short-term follow-up CT in 3 months recommended [facility], , 02/13/2024 6:02 PM
[2024-02-13] MEDS ORDERED: NALOXONE 0.4 MG/ML 1 ML VIAL IV PRN (18:35)
[2024-02-13] MEDS: AZITHROMYCIN 500 MG TAB PO STA (18:53)
[2024-02-13] MEDS: SODIUM CHLORIDE 0.9% 1,000 ML IV SCH (18:54)
[2024-02-13] MEDS: IBUPROFEN 600 MG TAB PO STA (18:54)
--- NOTE | 2024-02-13 22:51 | P.HPIM ---
History of Present Illness H&P Date: 02/13/24 Chief Complaint: Generalized weakness History of present illness; 54-year-old female with PMH of rheumatoid arthritis and osteoarthritis presents with complaints of generalized weakness and "feeling unwell". Reports the weakness started approximately 1 week ago at half-time of the [employer] game that she attended. Reports since then she has been bedbound due to her weakness, and notes her symptoms have not improved at all during this time. States there have been no alleviating nor worsening factors to her weakness. Admits to fever and chills at home as well as a headache located posteriorly and rated as a 3 out of 10. Also admits to potential recent sick contacts while she was at the [employer]. Denies cough, shortness of breath, palpitations, nausea, vomiting, urinary complaints, diarrhea, constipation, abdominal pain, lower extremity swelling, and diaphoresis. Labs: WBC 6.4, hemoglobin 13.5, platelet count 144, PT 13.7, INR 1.3, APTT 31.4, D-dimer 7.37, sodium 129, chloride 92, glucose 126, AST 782, ALT 444, alkaline phosphatase 431, troponin less than 0.012, and lipase 325. Viral respiratory panel as well as heterophile antibody all negative. Imaging: - EKG done in the ER showed heart rate of sinus tachycardia, 109 bpm, borderline right axis deviation, and QTc 399. - ER CXR: Patchy bibasilar acute infiltrates and/or atelectasis. - ER gallbladder ultrasound: No evidence for acute process. - CTA chest: No evidence of pulmonary embolism, airspace opacities in the lung bases with scattered pulmonary nodules. Given mediastinal lymphadenopathy findings concerning for either malignancy with metastatic disease with superimposed infection not excluded. REVIEW OF SYSTEMS: As stated above in HPI. The rest of the 14-point review of systems is negative. PHYSICAL EXAMINATION: GENERAL: The patient is alert and oriented x3, not in any acute distress. Well developed, well nourished. HEENT: Pupils are round and equally reacting to light. EOMI. No scleral icterus. No conjunctival pallor. Normocephalic, atraumatic. CARDIOVASCULAR: S1 and S2 present. No murmurs, rubs, or gallops. PULMONARY: Faint Rales auscultated at lung bases bilaterally, otherwise lungs clear to auscultation bilaterally ABDOMEN: Soft, nontender, nondistended, normoactive bowel sounds. No palpable organomegaly. MUSCULOSKELETAL: No joint swelling or deformity. EXTREMITIES: No cyanosis, clubbing, or pedal edema. NEUROLOGICAL: Gross neurological examination did not reveal any focal deficits. SKIN: No rashes. Assessment and Plan 54-year-old female with PMH of rheumatoid arthritis and osteoarthritis presents with complaints of generalized weakness. Patient is being worked up for genera lized weakness potentially secondary to CAP pneumonia versus bacteremia versus underlying malignancy. #Generalized weakness #Suspected CAP pneumonia vs bacteremia vs underlying malignancy vs rheumatoid lung disease # SIRS criteria, unclear source as CTA chest and CXR showed minimal inf iltrates/air opacities -Denies ever having cough, shortness of breath. -CTA chest showed air opacities in the lung bases with scattered pulmonary nodules. Mediastinal lymphadenopathy concerning for malignancy with superimposed infection. -Received one-time dose Zithromax 500 mg p.o. and Rocephin 2 g IVPB in the ED -Blood culture, urine culture, Legionella antigen, procalcitonin -No obvious risk factor for MRSA or Pseudomonal infection, will continue Zithromax 500 mg p.o. daily and Rocephin 2 g IVPB every 24 hours -Patient on immunosuppressant drugs at home (Simponi and methotrexate) #Transaminitis, possibly secondary to methotrexate vs simponi -On methotrexate at home, hold while admitted -Continue IV fluids -Gallbladder ultrasound showed no evidence for acute process, and no abnormalities around the liver -Follow-up CMP in the a.m. #Hyponatremia, may be due to poor oral intake over the past 1 week -Continue NS 130 cc/h -Follow-up CMP in the a.m. #Elevated lipase -On methotrexate at home, hold while admitted -Continue IV fluids -Follow-up CMP in the a.m. #Thrombocytopenia -On methotrexate and Simponi at home, both have side effects of thrombocytopenia -Hold while admitted -Follow-up CBC in the a.m. Chronic Conditions: #Rheumatoid arthritis -Holding methotrexate and Simponi while admitted -Consider steroids and additional analgesia as needed F: NS@130 cc/h E: None N: Regular diet A: Normally ambulates unassisted at home DVT ppx: Heparin 5000 units SQ every 8 HR GI ppx: Protonix 40 mg p.o. daily CODE STATUS: Full code Dispo: Pending course Ashan Jodi MD PGY-1 FM Dictation was produced using [employer] dictation software. please excuse any grammatical, word or spelling errors. Past Medical History Past Medical History: Osteoarthritis (OA), Rheumatoid Arthritis (RA) Additional Past Medical History / Comment(s): Chronic muscle pain, arthritis since she had Covid Jan 2021. History of Any Multi-Drug Resistant Organisms: None Reported Past Surgical History: Orthopedic Surgery Additional Past Surgical History / Comment(s): Right knee surgery 1984, colono scopy. pain clinic visits Past Anesthesia/Blood Transfusion Reactions: No Reported Reaction Past Psychological History: No Psychological Hx Reported Smoking Status: Former smoker Past Alcohol Use History: Occasional Past Drug Use History: None Reported - Past Family History Father Family Medical History: Cancer Additional Family Medical History / Comment(s): Lung cancer with mets . Medications and Allergies Home Medications Medication Instructions Recorded Confirmed Type Folic Acid 1 mg PO DAILY 09/01/22 02/13/24 History metHOTREXate sodium [Methotrexate] 17.5 mg PO WE 09/01/22 02/13/24 History Acetaminophen Tab [Tylenol Tab] 1,000 mg PO Q6HR PRN 02/13/24 02/13/24 History Ciprofloxacin HCl [Cipro] 500 mg PO Q12HR 02/13/24 02/13/24 History Ibuprofen 800 mg PO TID PRN 02/13/24 02/13/24 History Simponi(Unknown Dose) 1 dose SQ Q56D 02/13/24 02/13/24 History Allergies Allergy/AdvReac Type Severity Reaction Status Date / Time No Known Drug Allergies Allergy Unknown Verified 02/13/24 16:27 Physical Exam Vitals: Vital Signs Temp Pulse Resp BP Pulse Ox 02/13/24 20:11 99.7 F H 109 H 20 107/60 98 02/13/24 18:40 103.5 F H 112 H 20 114/73 94 L 02/13/24 15:41 113 H 18 101/70 97 02/13/24 13:05 98.2 F 132 H 18 100/71 93 L Intake and Output 02/13/24 02/13/24 02/13/24 06:59 14:59 22:59 Other: Weight 65.771 kg Results CBC & Chem 7: 02/13/24 13:30 02/13/24 13:30 Labs: Abnormal Lab Results - Last 24 Hours (Table) 02/13/24 02/13/24 02/13/24 Range/Units 13:30 13:30 14:28 Plt Count 144 L (150-450) k/uL PT (10.0-12.5) sec INR (<1.2) APTT (22.0-30.0) sec D-Dimer (<0.60) mg/L FEU Sodium 129 L (137-145) mmol/L Chloride 92 L (98-107) mmol/L Glucose 126 H (74-99) mg/dL Calcium 8.2 L (8.4-10.2) mg/dL AST 782 H (14-36) U/L ALT 444 H (4-34) U/L Alkaline Phosphatase 431 H (38-126) U/L Lipase (23-300) U/L Urine Protein 1+ H (Negative) Urine Ketones 1+ H (Negative) Urine Bilirubin 1+ H (Negative) Urine Mucus Moderate H (None) /hpf 02/13/24 02/13/24 Range/Units 16:19 16:19 Plt Count (150-450) k/uL PT 13.7 H (10.0-12.5) sec INR 1.3 H (<1.2) APTT 31.4 H (22.0-30.0) sec D-Dimer 7.37 H (<0.60) mg/L FEU Sodium (137-145) mmol/L Chloride (98-107) mmol/L Glucose (74-99) mg/dL Calcium (8.4-10.2) mg/dL AST (14-36) U/L ALT (4-34) U/L Alkaline Phosphatase (38-126) U/L Lipase 325 H (23-300) U/L Urine Protein (Negative) Urine Ketones (Negative) Urine Bilirubin (Negative) Urine Mucus (None) /hpf
[2024-02-13] MEDS: HEPARIN SODIUM,PORCINE 5,000 UNIT/ML 1 ML VIAL SQ SCH (23:30)
[2024-02-14] MEDS ORDERED: ACETAMINOPHEN TAB 325 MG TAB PO PRN (04:59)
[2024-02-14] MEDS: IBUPROFEN 400 MG TAB PO PRN (05:10)
[2024-02-14 05:14] LABS: ALT 600 U/L (4-34); African American GFR (CKD) >90 (>60 ml/min/1.73 sqM); Albumin 2.8 g/dL (3.5-5.0); Alkaline Phosphatase 357 U/L (38-126); Anion Gap 5 mmol/L; Blood Urea Nitrogen 12 mg/dL (7-17); Carbon Dioxide 24 mmol/L (22-30); Chloride 104 mmol/L (98-107); Globulin 2.9 g/dL; Glucose 99 mg/dL (74-99); Non-African American GFR(CKD) >90 (>60 ml/min/1.73 sqM); Potassium 3.8 mmol/L (3.5-5.1); Sodium 133 mmol/L (137-145); Total Bilirubin 1.1 mg/dL (0.2-1.3); Total Protein 5.7 g/dL (6.3-8.2)
[2024-02-14 05:40] LABS: AST 1186 U/L (14-36)
[2024-02-14 06:17] LABS: HCT 32.2 % (34.0-46.0); MCH 33.1 pg (25.0-35.0); MCHC 34.2 g/dL (31.0-37.0); MCV 96.6 fL (80.0-100.0); Mean Platelet Volume 9.5; Platelet Count 157 k/uL (150-450); RBC 3.34 m/uL (3.80-5.40); RDW 13.4 % (11.5-15.5)
[2024-02-14 06:40] LABS: Lymphocytes # (M) 1.35 k/uL (1.0-4.8); Monocytes # (M) 0.35 k/uL (0-1.0); Neutrophils % (M) 66 %; Nucleated Red Blood Cells 0 /100 WBC (0-0); Total Cells Counted 100
[2024-02-14] MEDS: PANTOPRAZOLE 40 MG TABLET PO SCH (06:49)
[2024-02-14] MEDS: AZITHROMYCIN 500 MG TAB PO SCH (07:23)
[2024-02-14] MEDS: FOLIC ACID 1 MG TAB PO SCH (07:23)
--- NOTE | 2024-02-14 08:33 | P.CNPUL ---
History of Present Illness Consult date: 02/14/24 Requesting physician: Makenzie Cat Reason for consult: other (Multiple bilateral pulmonary nodules) Chief complaint: fever, fatigue History of present illness: Patient is a 54-year-old female with past medical history significant for rheumatoid arthritis. She does take Simponi and methotrexate on outpatient basis. Primary care provider is Dr. Sneha King. Presents with a chief complaint of weakness and lethargy that started on Wednesday, first noticed at a football game. She is also had intermittent chills and diaphoresis. Appetite has been poor. No nausea or vomiting or other GI manifestations. She denies any recent travel or sick contacts. She denies any shortness of breath, cough, chest pain, hemoptysis. On arrival to the emergency department she did have a high temperature with a Tmax of 103.5 F. Chest CTA protocol was ordered due to an elevated D-dimer. Did not show evidence of pulmonary embolism. Scattered bilateral pulmonary nodules with the largest in the left upper lobe measuring 1.3 x 1.1 cm. Groundglass halo sign around the solid pulmonary nodule in the left upper lobe apex. Multiple other sub-centimeter pulmonary nodules. Prominent bilateral mediastinal and hilar lymphadenopathy noted. There are scattered airspace opacities in the lung bases left greater than right. No history of malignancy. No significant weight loss. CBC: WBC count 6.4, hemoglob in 13.5, hematocrit 39.5, platelets 144. CMP: Sodium 129, potassium 3.8, chloride 92, serum bicarb 29, BUN 16, creatinine 0.75, glucose 126. Lactic 1. AST 782, ALT 444, ALP 431. Lipase 325. Troponins less than 0.012. NT proBNP low. Negative for influenza, RSV, COVID. Most recent vital signs: Temperature 98.4 F, heart rate 103 bpm, blood pressure 102/69 mmHg, SpO2 93% on room air. Normal saline infusing at 130 mL/h. Nontoxic appearance. Review of Systems Constitutional: Reports anorexia, Reports chills, Reports fatigue, Reports fever, Reports lethargy, Reports malaise, Reports sweats, Denies weight gain, Denies weight loss Ears, nose, mouth and throat: Denies dysphagia, Denies headache, Denies post- nasal drip, Denies sinus pain, Denies sinus pressure, Denies sore throat Cardiovascular: Denies chest pain, Denies edema, Denies lightheadedness, Denies palpitations, Denies paroxysmal nocturnal dyspnea, Denies syncope Respiratory: Denies congestion, Denies cough, Denies cough with sputum, Denies dyspnea, Denies excessive sputum, Denies hemoptysis, Denies pleurisy Gastrointestinal: Reports loss of appetite, Denies abdominal pain, Denies co nstipation, Denies diarrhea, Denies hematemesis, Denies melena, Denies nausea, Denies vomiting Genitourinary: Denies dysuria, Denies hematuria, Denies urinary frequency Musculoskeletal: Denies limitation of motion Integumentary: Denies lesions, Denies rash Neurological: Denies balance difficulties, Denies confusion, Denies seizures, Denies visual changes Psychiatric: Denies anxiety, Denies depression Past Medical History Past Medical History: Osteoarthritis (OA), Rheumatoid Arthritis (RA) Additional Past Medical History / Comment(s): Chronic muscle pain, arthritis since she had Covid Jan 2021. History of Any Multi-Drug Resistant Organisms: None Reported Past Surgical History: Orthopedic Surgery Additional Past Surgical History / Comment(s): Right knee surgery 1984, colonoscopy. pain clinic visits Past Anesthesia/Blood Transfusion Reactions: No Reported Reaction Past Psychological History: No Psychological Hx Reported Smoking Status: Former smoker Past Alcohol Use History: Occasional Past Drug Use History: None Reported - Past Family History Father Family Medical History: Cancer Additional Family Medical History / Comment(s): Lung cancer with mets . Medications and Allergies Home Medications Medication Instructions Recorded Confirmed Type Folic Acid 1 mg PO DAILY 09/01/22 02/13/24 History metHOTREXate sodium [Methotrexate] 17.5 mg PO WE 09/01/22 02/13/24 History Acetaminophen Tab [Tylenol Tab] 1,000 mg PO Q6HR PRN 02/13/24 02/13/24 History Ciprofloxacin HCl [Cipro] 500 mg PO Q12HR 02/13/24 02/13/24 History Ibuprofen 800 mg PO TID PRN 02/13/24 02/13/24 History Simponi Injection 137.5 mg SQ Q56D 02/14/24 02/14/24 History Allergies Allergy/AdvReac Type Severity Reaction Status Date / Time No Known Drug Allergies Allergy Unknown Verified 02/13/24 16:27 Physical Exam Vitals: Vital Signs Temp Pulse Pulse Resp BP BP Pulse Ox 02/14/24 00:49 98.4 F 103 H 14 102/69 90 L 02/13/24 22:14 98.1 F 88 14 100/67 93 L 02/13/24 22:00 108 H 18 116/70 97 02/13/24 20:11 99.7 F H 109 H 20 107/60 98 02/13/24 18:40 103.5 F H 112 H 20 114/73 94 L 02/13/24 15:41 113 H 18 101/70 97 02/13/24 13:05 98.2 F 132 H 18 100/71 93 L Intake and Output 02/13/24 02/13/24 02/14/24 14:59 22:59 06:59 Other: # Voids 4 Weight 65.771 kg 65.771 kg GENERAL EXAM: Alert, 54-year-old white female, well-nourished, comfortable in no apparent distress. HEAD: Normocephalic and atraumatic EYES: Normal reaction of pupils, equal size. NOSE: Clear with pink turbinates. THROAT: No erythema or exudates. NECK: No masses, no JVD. CHEST: No chest wall deformity. LUNGS: Equal air entry with no crackles, wheeze, rhonchi or dullness. On room air. No conversational dyspnea or accessory muscle use.. CVS: S1 and S2 normal with no audible murmur, regular rhythm. No extra heart sounds ABDOMEN: No hepatosplenomegaly, active bowel sounds, no guarding or rigidity. SPINE: No scoliosis or deformity SKIN: No rashes, no cutaneous nodules CENTRAL NERVOUS SYSTEM: No focal deficits, tone is normal in all 4 extremities. EXTREMITIES: There is no peripheral edema, clubbing, or cyanosis. Peripheral pulses are intact. m Results - Laboratory Findings CBC and BMP: 02/14/24 05:58 02/14/24 04:35 PT/INR, D-dimer PT 13.7 sec (10.0-12.5) H 02/13/24 16:19 INR 1.3 (<1.2) H 02/13/24 16:19 D-Dimer 7.37 mg/L FEU (<0.60) H 02/13/24 16:19 Abnormal lab findings: Abnormal Labs 02/13/24 02/13/24 02/13/24 13:30 13:30 14:28 Plt Count 144 L PT INR APTT D-Dimer Sodium 129 L Chloride 92 L Glucose 126 H Calcium 8.2 L AST 782 H ALT 444 H Alkaline Phosphatase 431 H Lipase Urine Protein 1+ H Urine Ketones 1+ H Urine Bilirubin 1+ H Urine Mucus Moderate H 02/13/24 02/13/24 16:19 16:19 Plt Count PT 13.7 H INR 1.3 H APTT 31.4 H D-Dimer 7.37 H Sodium Chloride Glucose Calcium AST ALT Alkaline Phosphatase Lipase 325 H Urine Protein Urine Ketones Urine Bilirubin Urine Mucus - Diagnostic Findings Chest x-ray: image reviewed CT scan - chest: image reviewed Assessment and Plan Assessment: Multiple bilateral scattered pulmonary nodules, associated mediastinal/hilar lymphadenopathy, and minimal bibasilar airspace disease, greater on the left; concerning for possible infectious process. Underlying rheumatoid lung disease not excluded. Metastatic disease is also not excluded. Acute febrile illness Rheumatoid arthritis, maintained on methotrexate and Simponi on outpatient basis Transaminitis; Gallbladder ultrasound unremarkable; possibly secondary to liver toxicity from RA meds Hyponatremia, secondary to poor oral intake Former tobacco smoker, entirely 3 years ago, prior to that smoked approximately 1 pack/week on and off Former tobacco smoker Plan: Patient's medications, labs, imaging reviewed Currently covered on empiric antibiotics Check procalcitonin level and other inflammatory markers Immunsuppresive agents on hold Will need further pulmonary workup. Case will be discussed with Dr. Siddiqui later this morning Further recommendations to follow I have personally seen and examined the patient, performed the documentation and the assessment and plan as written. Number of minutes spent on the visit:20 This is a joint evaluation that was done along with the nurse practitioner. The patient is known to have rheumatoid arthritis maintained on Simponi and methotrexate 17.5 mg on a weekly basis on an outpatient basis. The patient presented to us and the patient was having intermittent chills and diaphoresis and feeling weak and tired and sick. Viral screen has been negative. Legionella urine antigen is negative. CT scan of the chest was done and showed evidence of a left lower lobe consolidation in addition to that the patient had mediastinal lymphadenopathy and there was also scattered pulmonary nodules bilaterally largest being around 13 x 11 mm in size in the left upper lobe and smaller nodules in the left upper lobe and the right upper lobe measuring 4 mm in size and another nodule in the left upper lobe measuring 7 mm in size. As for the mediastinal lymph nodes, the largest in the AP window measuring 16 mm in size in addition to other lymph nodes in the right paratracheal area, left hilar and paratracheal area and subcarinal area, smaller in size. In addition to that, the patient carries a white cell count of 5 with a hemoglobin of 11, BUN of 12 with a creatinine of 0.6. LFTs are n abnormal with an AST of 1186 and ALT of 600 and an alkaline phosphatase of 354. The patient's procalcitonin level is at 0.57. The patient is currently on a combination of the Rocephin and Zithromax. Ultrasound the gallbladder shows no significant abnormalities in the patient's viral hepatitis screen has been also negative. Based on all this the plan is the following Continue current antibiotic coverage. The patient has likely a left lower lobe pneumonia. She is obviously immunocompromised based on the fact that she has been on a combination of Simponi (TNK alpha prerna) and methotrexate. I feel that the rest of the radiographic presentation with pulmonary nodules and mediastinal lymphadenopathy could be a representation of methotrexate lung toxicity and/or rheumatoid lungs. Possibility of other opportunistic infections cannot be completely ruled out based on her immunocompromise status. Diseases such as bacterial sepsis, tuberculosis (TB), and fungal and opportunistic infections have been reported. Reported infections include coccidioidomycosis, candidiasis, listeriosis, aspergillosis, blastomycosis, and histoplasmosis. Malignancy is felt to be less likely. LFTs may be abnormal related to methotrexate in addition to possible Simponi toxicity as the block has been reported to cause hepatic reactions including acute liver failure.. Will stop methotrexate and Simponi. Will treat the pneumonia. Will need obviously a follow-up CAT scan of the chest within the next 3 to 4 months to assess progression of the pulmonary nodules and the mediastinal lymph nodes. Bronchoscopy and bronchial lavage if no improvement and/or there is progression of the pneumonia. If clinically improved, a follow-up CAT scan of the chest to monitor the pulmonary nodules and the mediastinal lymph nodes. Explained to the patient the findings and the plan. Time with Patient: Greater than 30
[2024-02-14 10:09] LABS: Hepatitis A Antibody IgM Nonreactive (Nonreactive); Hepatitis B Core IgM Nonreactive (Nonreactive); Hepatitis B Surface Antigen Nonreactive (Nonreactive)
[2024-02-14 11:04] LABS: Hepatitis C IgG Antibody Nonreactive (Nonreactive)
--- NOTE | 2024-02-14 13:56 | P.PN ---
Subjective Progress Note Date: 02/14/24 Hospital Course: 54-year-old female with history of rheumatoid arthritis on methotrexate and Si mponi presenting with generalized weakness. While in the ED, patient was febrile up to 103.5, tachycardia up to 132, respiratory rate 18, blood pressure 100/71, saturating at 93% on room air. Initial laboratory workup showed WBC of 6.4, hemoglobin 13.5, platelet 144, INR 1.3, D-dimer 7.37, sodium 129, bicarb 29, creatinine 0.75, lactate 1, total bili 1.1, AST 782, ALT 444, ALP 431, lipase 325, procalcitonin 0.56, TSH 0.520 and free T41.05, hepatitis panel negative, respiratory viral panel negative, heterophile antibody negative. Chest x-ray concerning for bibasilar infiltrates. EKG showed sinus tachycardia. Gallbladder ultrasound showed no acute process. Chest CTA showed airspace opacities in the lung bases with scattered pulmonary nodules and mediastinal lymphadenopathy, no PE. Pulmonology also consulted. ID consulted. Patient started on empiric IV antibiotics. Subjective: Patient seen and examined at bedside. No acute events overnight. Pertinent positives and negatives as discussed above, a complete review of systems was performed and all other systems are negative. Vitals Signs Reviewed. General: Nontoxic, no distress, appears at stated age Derm: Warm, dry Head: Atraumatic, normocephalic, symmetric Eyes: EOMI, no lid lag, anicteric sclera Mouth: No lip lesion, mucus membranes moist Cardiovascular: S1S2 reg, no murmur Lungs: CTA bilateral, no rhonchi, no rales, no accessory muscle use Abdominal: Soft, nontender to palpation, no guarding, no appreciable org anomegaly Ext: No gross muscle atrophy, no edema, no contractures Neuro: CN II-XI grossly intact, no focal neuro deficits Psych: Alert, oriented, appropriate affect Data Reviewed Today: Pertinent Labs: WBC 5, hemoglobin 11, sodium 133, creatinine 0.64, total bili 1.1, AST 1000 186, ALT 600, ALP 357 Imaging: No new imaging Assessment and Plan: Sepsis secondary to suspected community-acquired pneumonia Acute hepatitis Elevated INR History of rheumatoid arthritis on methotrexate and Simponi Hypovolemic hyponatremia, improving -Cultures pending, Legionella urine antigen pending -Continue IV ceftriaxone 2 g every 24 hours, oral azithromycin 500 daily -Continue IV fluids normal saline 130 cc an hour -Upon reviewing literature, there is a possibility of methotrexate toxicity causing her symptoms as well. It can also lead to pneumonitis. However, elevated AST to ALT ratio goes against that. Acute hepatitis panel was negative. EBV, CMV, JUVENTINO, ANCA studies pending -Simponi could also possibly cause toxicity however rare cases of hepatitis and pneumonitis. -Continue to monitor CMP and coags -Pulmonology note reviewed, continue current therapy -ID also consulted, pending recommendations DVT ppx: Subcu heparin Code status: Full code Anticipated discharge place: Pending clinical course Anticipated discharge time: Pending clinical course Objective - Vital Signs Vital signs: Vital Signs Temp 98.6 F 02/14/24 07:36 Pulse 114 H 02/14/24 07:36 Resp 17 02/14/24 07:36 BP 97/65 02/14/24 07:36 Pulse Ox 94 L 02/14/24 07:36 FiO2 Intake & Output 02/13/24 02/14/24 02/14/24 18:59 06:59 18:59 Weight 65.771 kg 65.771 kg Other: # Voids 4 - Labs CBC & Chem 7: 02/14/24 05:58 02/14/24 04:35 Labs: Abnormal Lab Results - Last 24 Hours (Table) 02/13/24 02/13/24 02/13/24 Range/Units 13:30 13:30 14:28 RBC (3.80-5.40) m/uL Hgb (11.4-16.0) gm/dL Hct (34.0-46.0) % Plt Count 144 L (150-450) k/uL PT (10.0-12.5) sec INR (<1.2) APTT (22.0-30.0) sec D-Dimer (<0.60) mg/L FEU Sodium 129 L (137-145) mmol/L Chloride 92 L (98-107) mmol/L Glucose 126 H (74-99) mg/dL Calcium 8.2 L (8.4-10.2) mg/dL AST 782 H (14-36) U/L ALT 444 H (4-34) U/L Alkaline Phosphatase 431 H (38-126) U/L Total Protein (6.3-8.2) g/dL Albumin (3.5-5.0) g/dL Lipase (23-300) U/L Procalcitonin (0.02-0.50) ng/mL Free T3 pg/mL (2.30-4.20) pg/mL Urine Protein 1+ H (Negative) Urine Ketones 1+ H (Negative) Urine Bilirubin 1+ H (Negative) Urine Mucus Moderate H (None) /hpf 02/13/24 02/13/24 02/13/24 Range/Units 14:28 16:19 16:19 RBC (3.80-5.40) m/uL Hgb (11.4-16.0) gm/dL Hct (34.0-46.0) % Plt Count (150-450) k/uL PT 13.7 H (10.0-12.5) sec INR 1.3 H (<1.2) APTT 31.4 H (22.0-30.0) sec D-Dimer 7.37 H (<0.60) mg/L FEU Sodium (137-145) mmol/L Chloride (98-107) mmol/L Glucose (74-99) mg/dL Calcium (8.4-10.2) mg/dL AST (14-36) U/L ALT (4-34) U/L Alkaline Phosphatase (38-126) U/L Total Protein (6.3-8.2) g/dL Albumin (3.5-5.0) g/dL Lipase 325 H (23-300) U/L Procalcitonin (0.02-0.50) ng/mL Free T3 pg/mL 0.90 L (2.30-4.20) pg/mL Urine Protein (Negative) Urine Ketones (Negative) Urine Bilirubin (Negative) Urine Mucus (None) /hpf 02/13/24 02/14/24 02/14/24 Range/Units 19:10 04:35 05:58 RBC 3.34 L (3.80-5.40) m/uL Hgb 11.0 L (11.4-16.0) gm/dL Hct 32.2 L (34.0-46.0) % Plt Count (150-450) k/uL PT (10.0-12.5) sec INR (<1.2) APTT (22.0-30.0) sec D-Dimer (<0.60) mg/L FEU Sodium 133 L (137-145) mmol/L Chloride (98-107) mmol/L Glucose (74-99) mg/dL Calcium 8.0 L (8.4-10.2) mg/dL AST 1186 H (14-36) U/L ALT 600 H (4-34) U/L Alkaline Phosphatase 357 H (38-126) U/L Total Protein 5.7 L (6.3-8.2) g/dL Albumin 2.8 L (3.5-5.0) g/dL Lipase (23-300) U/L Procalcitonin 0.56 H (0.02-0.50) ng/mL Free T3 pg/mL (2.30-4.20) pg/mL Urine Protein (Negative) Urine Ketones (Negative) Urine Bilirubin (Negative) Urine Mucus (None) /hpf
[2024-02-14 20:22] LABS: EBV-EBNA(IgG) >8.0; EBV-VCA (IgG) 4.6 AI; EBV-VCA (IgM) <0.2 AI
--- NOTE | 2024-02-14 21:41 | P.CONS ---
History of Present Illness - Reason for Consult Consult date: 02/14/24 Pneumonia with elevated liver enzymes Requesting physician: Gaye Zapata - Chief Complaint Not feeling well x 1 week - History of Present Illness Patient is a 54-year-old female with a past medical history of osteoarthritis management arthritis COVID-19 in 2020, previous history of smoking presenting to the hospital for evaluation of not feeling well patient s [place] has been going on for about a week mostly with generalized weakness fatigue did have some chills did not took her temperature at home so not really clear about any fever also have some nausea and decreased appetite but no vomiting denies having abdominal pain no diarrhea or any constipation no urinary symptoms denies significant chest pain shortness of breath or cough patient on presentation to the hospital have a fever of 103.5 F patient was tachycardic but not hypotensive mildly hypoxic but not requiring any supplemental oxygen patient did have a white count of 6.4 repeat white count is 5.0 did have elevated D-dimer kidney function has been normal liver enzymes are elevated UA has been negative urine for Legionella antigen negative influenza RSV COVID testing negative acute hepatitis panel was negative patient did have chest x-ray patchy bibasilar acute infiltrates or atelectasis also have a CT angiogram of the chest airspace opacities in the lung bases with scattered pulmonary nodules with concern for metastatic disease with superimposed infection not excluded patient has been treated with ceftriaxone and Zithromax infectious disease was consulted for further management of antibiotic therapy Review of Systems Positive point and negatives has been mentioned in the HPI, complete review of systems was performed and all other systems are negative Past Medical History Past Medical History: Osteoarthritis (OA), Rheumatoid Arthritis (RA) Additional Past Medical History / Comment(s): Chronic muscle pain, arthritis since she had Covid Jan 2021. History of Any Multi-Drug Resistant Organisms: None Reported Past Surgical History: Orthopedic Surgery Additional Past Surgical History / Comment(s): Right knee surgery 1984, colonoscopy. pain clinic visits Past Anesthesia/Blood Transfusion Reactions: No Reported Reaction Past Psychological History: No Psychological Hx Reported Smoking Status: Former smoker Past Alcohol Use History: Occasional Past Drug Use History: None Reported - Past Family History Father Family Medical History: Cancer Additional Family Medical History / Comment(s): Lung cancer with mets . Medications and Allergies Home Medications Medication Instructions Recorded Confirmed Type Folic Acid 1 mg PO DAILY 09/01/22 02/13/24 History metHOTREXate sodium [Methotrexate] 17.5 mg PO WE 09/01/22 02/13/24 History Acetaminophen Tab [Tylenol Tab] 1,000 mg PO Q6HR PRN 02/13/24 02/13/24 History Ciprofloxacin HCl [Cipro] 500 mg PO Q12HR 02/13/24 02/13/24 History Ibuprofen 800 mg PO TID PRN 02/13/24 02/13/24 History Simponi Injection 137.5 mg SQ Q56D 02/14/24 02/14/24 History Allergies Allergy/AdvReac Type Severity Reaction Status Date / Time No Known Drug Allergies Allergy Unknown Verified 02/13/24 16:27 Physical Exam Vitals: Vital Signs Temp Pulse Pulse Resp BP BP Pulse Ox 02/14/24 07:36 98.6 F 114 H 17 97/65 94 L 02/14/24 00:49 98.4 F 103 H 14 102/69 90 L 02/13/24 22:14 98.1 F 88 14 100/67 93 L 02/13/24 22:00 108 H 18 116/70 97 02/13/24 20:11 99.7 F H 109 H 20 107/60 98 02/13/24 18:40 103.5 F H 112 H 20 114/73 94 L 02/13/24 15:41 113 H 18 101/70 97 02/13/24 13:05 98.2 F 132 H 18 100/71 93 L Intake and Output 02/13/24 02/14/24 02/14/24 22:59 06:59 14:59 Other: # Voids 4 Weight 65.771 kg GENERAL DESCRIPTION: Middle-aged female lying in bed, no distress. No tachypnea or accessory muscle of respiration use. HEENT: Shows Pallor , no scleral icterus. Oral mucous membrane is dry. Did have extensive oral thrush NECK: Trachea central, no thyromegaly. LUNGS: Unlabored breathing. Coarse breath sound at the base HEART: S1, S2, regular rate and rhythm. No loud murmur ABDOMEN: Soft, no tenderness , guarding or rigidity, no organomegaly EXTREMITIES: No edema of feet. SKIN: No rash, no masses palpable. NEUROLOGICAL: The patient is awake, alert, oriented x3, mood and affect normal. Results CBC & Chem 7: 02/15/24 03:55 02/15/24 11:57 Labs: Abnormal Lab Results - Last 24 Hours (Table) 02/13/24 02/13/24 02/13/24 Range/Units 13:30 13:30 14:28 RBC (3.80-5.40) m/uL Hgb (11.4-16.0) gm/dL Hct (34.0-46.0) % Plt Count 144 L (150-450) k/uL PT (10.0-12.5) sec INR (<1.2) APTT (22.0-30.0) sec D-Dimer (<0.60) mg/L FEU Sodium 129 L (137-145) mmol/L Chloride 92 L (98-107) mmol/L Glucose 126 H (74-99) mg/dL Calcium 8.2 L (8.4-10.2) mg/dL AST 782 H (14-36) U/L ALT 444 H (4-34) U/L Alkaline Phosphatase 431 H (38-126) U/L Total Protein (6.3-8.2) g/dL Albumin (3.5-5.0) g/dL Lipase (23-300) U/L Urine Protein 1+ H (Negative) Urine Ketones 1+ H (Negative) Urine Bilirubin 1+ H (Negative) Urine Mucus Moderate H (None) /hpf 02/13/24 02/13/24 02/14/24 Range/Units 16:19 16:19 04:35 RBC (3.80-5.40) m/uL Hgb (11.4-16.0) gm/dL Hct (34.0-46.0) % Plt Count (150-450) k/uL PT 13.7 H (10.0-12.5) sec INR 1.3 H (<1.2) APTT 31.4 H (22.0-30.0) sec D-Dimer 7.37 H (<0.60) mg/L FEU Sodium 133 L (137-145) mmol/L Chloride (98-107) mmol/L Glucose (74-99) mg/dL Calcium 8.0 L (8.4-10.2) mg/dL AST 1186 H (14-36) U/L ALT 600 H (4-34) U/L Alkaline Phosphatase 357 H (38-126) U/L Total Protein 5.7 L (6.3-8.2) g/dL Albumin 2.8 L (3.5-5.0) g/dL Lipase 325 H (23-300) U/L Urine Protein (Negative) Urine Ketones (Negative) Urine Bilirubin (Negative) Urine Mucus (None) /hpf 02/14/24 Range/Units 05:58 RBC 3.34 L (3.80-5.40) m/uL Hgb 11.0 L (11.4-16.0) gm/dL Hct 32.2 L (34.0-46.0) % Plt Count (150-450) k/uL PT (10.0-12.5) sec INR (<1.2) APTT (22.0-30.0) sec D-Dimer (<0.60) mg/L FEU Sodium (137-145) mmol/L Chloride (98-107) mmol/L Glucose (74-99) mg/dL Calcium (8.4-10.2) mg/dL AST (14-36) U/L ALT (4-34) U/L Alkaline Phosphatase (38-126) U/L Total Protein (6.3-8.2) g/dL Albumin (3.5-5.0) g/dL Lipase (23-300) U/L Urine Protein (Negative) Urine Ketones (Negative) Urine Bilirubin (Negative) Urine Mucus (None) /hpf Assessment and Plan (1) Sepsis Current Visit: Yes Status: Acute Code(s): A41.9 - SEPSIS, UNSPECIFIED ORGANISM SNOMED Code(s): 82566703 (2) Thrush Current Visit: Yes Status: Acute Code(s): B37.0 - CANDIDAL STOMATITIS S NOMED Code(s): 81787425 (3) Hepatitis Current Visit: Yes Status: Acute Code(s): K75.9 - INFLAMMATORY LIVER DISEASE, UNSPECIFIED SNOMED Code(s): 153253546 (4) Pneumonia Current Visit: Yes Status: Acute Code(s): J18.9 - PNEUMONIA, UNSPECIFIED ORGANISM SNOMED Code(s): 737725557 Plan: 1patient presented to hospital with sepsis in this patient who did have fever tachycardia meeting criteria for SIRS source likely pneumonia as seen on the CT, of the chest with a question of typical versus atypical pneumonia urine for Legionella antigen has been negative 2-patient also have elevated liver enzymes though acute hepatitis panel negative EBV IgG positive IgM is negative, CMV IgM negative 3-patient did have extensive oral thrush 4-try to finish sputum for Gram stain culture May benefit from bronchoscopy lavage and deep culture 5-we will add nystatin swish and swallow 6-check HIV serology and CD4 count We will follow on clinical condition and cultures to further adjust medication if needed Thank you for this consultation we will follow the patient along with you Dictation was produced using [employer] dictation software. please excuse any grammatical, word or spelling errors. Time with Patient: Greater than 30
[2024-02-14] MEDS: NYSTATIN 100,000 UNIT/ML SUSP 500,000 UNIT/5 ML CUP PO SCH (22:17)
--- NOTE | 2024-02-15 06:51 | XR ---
EXAMINATION TYPE: XR chest 2V DATE OF EXAM: 02/15/2024 6:23 AM COMPARISON: 02/13/2024 CLINICAL INDICATION: Female, 54 years old with history of LLL pneumonia, , TECHNIQUE: PA and lateral views FINDINGS: Heart normal size. Mild hyperinflation. There are Kong B lines and bibasilar opacities along with t race pleural effusions. IMPRESSION: Interval development of bibasilar airspace disease and interstitial infiltrate. Trace pleural effusio ns. Background COPD. Correlate for infectious or aspiration pneumonitis. [facility], , 02/15/2024 6:49 AM
[2024-02-15 08:39] LABS: HCT 34.6 % (37.2-46.3); HGB 11.5 g/dL (12.0-15.0); MCH 31.9 pg (27.0-32.0); MCHC 33.2 g/dL (32.0-37.0); MCV 95.8 FL (80.0-97.0); Mean Platelet Volume 11.9 FL (9.5-12.2); NRBC Per 100 WBC 0 X 10*3/uL (0.00-0.01); Platelet Count 209 X 10*3/uL (140-440); RBC 3.61 X 10*6/uL (4.10-5.20); RDW 13.8 % (11.5-14.5); WBC 6.16 X 10*3/uL (4.50-10.00)
[2024-02-15 09:45] LABS: Basophils # (A) 0.05 X 10*3/uL (0.00-0.10); Basophils % (A) 0.8 %; Eosinophils # (A) 0.01 X 10*3/uL (0.04-0.35); Eosinophils % (A) 0.2 %; Lymphocytes % (A) 21.1 %; Monocytes % (A) 4.9 %; Neutrophils # (A) 4.23 X 10*3/uL (1.80-7.70); Neutrophils % (A) 68.6 %
[2024-02-15 09:46] LABS: RBC Morphology Normal (Normal)
[2024-02-15 12:29] LABS: ALT 530 U/L (8-44); AST 643 U/L (13-35); Albumin 2.9 g/dL (3.8-4.9); Albumin/Globulin Ratio 0.97 Ratio (1.60-3.17); Alkaline Phosphatase 401 U/L (41-126); BUN/Creat Ratio 12.43 Ratio (12.00-20.00); Blood Urea Nitrogen 8.7 mg/dL (9.0-27.0); Calcium 7.9 mg/dL (8.7-10.3); Carbon Dioxide 22.9 mmol/L (21.6-31.8); Chloride 102 mmol/L (96-109); Glucose 107 mg/dL (70-110); Potassium 5.2 mmol/L (3.5-5.5); Sodium 135 mmol/L (135-145); Total Bilirubin 0.8 mg/dL (0.3-1.2); Total Protein 5.9 g/dL (6.2-8.2)
[2024-02-15 13:01] LABS: ALT 460 U/L (4-34); AST 541 U/L (14-36); African American GFR (CKD) >90 (>60 ml/min/1.73 sqM); Albumin 2.5 g/dL (3.5-5.0); Albumin/Globulin Ratio 0.8; Alkaline Phosphatase 407 U/L (38-126); Anion Gap 2 mmol/L; Blood Urea Nitrogen 9 mg/dL (7-17); Calcium 7.6 mg/dL (8.4-10.2); Carbon Dioxide 27 mmol/L (22-30); Chloride 106 mmol/L (98-107); Globulin 3.1 g/dL; Glucose 101 mg/dL (74-99); Non-African American GFR(CKD) >90 (>60 ml/min/1.73 sqM); Potassium 3.4 mmol/L (3.5-5.1); Sodium 135 mmol/L (137-145); Total Bilirubin 1.2 mg/dL (0.2-1.3); Total Protein 5.6 g/dL (6.3-8.2)
--- NOTE | 2024-02-15 13:35 | P.PN ---
Subjective Progress Note Date: 02/15/24 Hospital Course: 54-year-old female with history of rheumatoid arthritis on methotrexate and Si mponi presenting with generalized weakness. While in the ED, patient was febrile up to 103.5, tachycardia up to 132, respiratory rate 18, blood pressure 100/71, saturating at 93% on room air. Initial laboratory workup showed WBC of 6.4, hemoglobin 13.5, platelet 144, INR 1.3, D-dimer 7.37, sodium 129, bicarb 29, creatinine 0.75, lactate 1, total bili 1.1, AST 782, ALT 444, ALP 431, lipase 325, procalcitonin 0.56, TSH 0.520 and free T41.05, hepatitis panel negative, respiratory viral panel negative, heterophile antibody negative. Chest x-ray concerning for bibasilar infiltrates. EKG showed sinus tachycardia. Gallbladder ultrasound showed no acute process. Chest CTA showed airspace opacities in the lung bases with scattered pulmonary nodules and mediastinal lymphadenopathy, no PE. Pulmonology also consulted. ID consulted. Patient started on empiric IV antibiotics. Likely getting bronchoscopy as well. LFTs now downtrending. Subjective: Patient seen and examined at bedside. No acute events overnight. Pertinent positives and negatives as discussed above, a complete review of systems was performed and all other systems are negative. Vitals Signs Reviewed. General: Nontoxic, no distress, appears at stated age Derm: Warm, dry Head: Atraumatic, normocephalic, symmetric Eyes: EOMI, no lid lag, anicteric sclera Mouth: No lip lesion, mucus membranes moist Cardiovascular: S1S2 reg, no murmur Lungs: CTA bilateral, no rhonchi, no rales, no accessory muscle use, supplemen isabelle oxygen Abdominal: Soft, nontender to palpation, no guarding, no appreciable organomegaly Ext: No gross muscle atrophy, no edema, no contractures Neuro: CN II-XI grossly intact, no focal neuro deficits Psych: Alert, oriented, appropriate affect Data Reviewed Today: Pertinent Labs: WBC 6.16, hemoglobin 11.5, with a left shift, sodium 135, potassium 3.4, creatinine 0.65, total bili 1.2, AST 541, ALT 460, ALP 4 7 Imaging: Chest x-ray independently interpreted, shows bilateral worsening interstitial opacities Assessment and Plan: Sepsis secondary to suspected community-acquired pneumonia versus pneumonitis versus fungal pneumonia Acute hepatitis, improving Elevated INR History of rheumatoid arthritis on methotrexate and Simponi Hypovolemic hyponatremia, improving Hypokalemia -Cultures pending, no growth to date -Continue IV ceftriaxone 2 g every 24 hours, oral azithromycin 500 daily -Continue IV fluids normal saline 50 cc an hour -Autoimmune workup pending -Pulmonology following, possible bronchoscopy today -Continue to monitor CMP and coags -ID also following -20 mill equivalent oral potassium given today -Also started on MiraLAX 17 g daily DVT ppx: Subcu heparin Code status: Full code Anticipated discharge place: Pending clinical course Anticipated discharge time: Pending clinical course Objective - Vital Signs Vital signs: Vital Signs Temp 98.8 F 02/15/24 07:53 Pulse 80 02/15/24 07:53 Resp 17 02/15/24 07:53 BP 96/62 02/15/24 07:53 Pulse Ox 91 L 02/15/24 07:53 FiO2 Intake & Output 02/14/24 02/15/24 02/15/24 18:59 06:59 18:59 Intake Total 1560 Balance 1560 Intake: Intake, IV Titration 1560 Amount Sodium Chloride 0.9% 1, 1560 000 ml @ 130 mls/hr IV . Q7H42M [facility] Rx#:[id number] Other: # Voids 4 - Labs CBC & Chem 7: 02/15/24 03:55 02/15/24 11:57 Labs: Abnormal Lab Results - Last 24 Hours (Table) 02/14/24 02/15/24 02/15/24 Range/Units 14:12 03:55 03:55 RBC 3.61 L (4.10-5.20) X 10*6/uL Hgb 11.5 L (12.0-15.0) g/dL Hct 34.6 L (37.2-46.3) % Immature Gran # 0.27 H (0.00-0.04) X 10*3/uL Eosinophils # 0.01 L (0.04-0.35) X 10*3/uL Sodium (137-145) mmol/L Potassium (3.5-5.1) mmol/L BUN 8.7 L (9.0-27.0) mg/dL Glucose (74-99) mg/dL Calcium 7.9 L (8.7-10.3) mg/dL AST 643 H (13-35) U/L ALT 530 H (8-44) U/L Alkaline Phosphatase 401 H (41-126) U/L Total Protein 5.9 L (6.2-8.2) g/dL Albumin 2.9 L (3.8-4.9) g/dL Albumin/Globulin Ratio 0.97 L (1.60-3.17) Ratio EBV Capsid Ag IgG Intrp Positive A (Negative) EBV EA IgG Ab Interp Equivocal A (Negative) EBV Nuc Ag IgG Interp Positive A (Negative) 02/15/24 Range/Units 11:57 RBC (4.10-5.20) X 10*6/uL Hgb (12.0-15.0) g/dL Hct (37.2-46.3) % Immature Gran # (0.00-0.04) X 10*3/uL Eosinophils # (0.04-0.35) X 10*3/uL Sodium 135 L (137-145) mmol/L Potassium 3.4 L (3.5-5.1) mmol/L BUN (9.0-27.0) mg/dL Glucose 101 H (74-99) mg/dL Calcium 7.6 L (8.7-10.3) mg/dL AST 541 H (13-35) U/L ALT 460 H (8-44) U/L Alkaline Phosphatase 407 H (41-126) U/L Total Protein 5.6 L (6.2-8.2) g/dL Albumin 2.5 L (3.8-4.9) g/dL Albumin/Globulin Ratio (1.60-3.17) Ratio EBV Capsid Ag IgG Intrp (Negative) EBV EA IgG Ab Interp (Negative) EBV Nuc Ag IgG Interp (Negative) Microbiology - Last 24 Hours (Table) 02/13/24 13:30 Blood Culture - Preliminary Blood 02/13/24 14:15 Urine Culture - Final Urine,Voided
--- NOTE | 2024-02-15 13:41 | P.PN ---
Subjective Progress Note Date: 02/15/24 Principal diagnosis: Reason for follow-up is pneumonia Patient is a 54-year-old female with a past medical history of osteoarthritis management arthritis COVID-19 in 2020, previous history of smoking presenting to the hospital for evaluation of not feeling well, patient was noted to be febrile did have a CT angiogram of the chest did shows airspace opacities lung base scattered pulmonary nodules. On today's evaluation that is 02/15/2024, patient did spike a fever last night of 101 F however the patient is afebrile this morning patient is breathing comfortably still requiring supplemental oxygen patient denies having any chest pain she did have a cough but did not bring up any sputum no nausea no vomiting no abdominal pain or diarrhea. Patient white count 6.16, creatinine 0.65 liver enzymes slightly improved blood culture has been negative so far Objective - Vital Signs Vital signs: Vital Signs Temp 98.8 F 02/15/24 07:53 Pulse 80 02/15/24 07:53 Resp 17 02/15/24 07:53 BP 96/62 02/15/24 07:53 Pulse Ox 91 L 02/15/24 07:53 FiO2 Intake & Output 02/14/24 02/15/24 02/15/24 18:59 06:59 18:59 Intake Total 1560 Balance 1560 Intake: Intake, IV Titration 1560 Amount Sodium Chloride 0.9% 1, 1560 000 ml @ 130 mls/hr IV . Q7H42M [facility] Rx#:[id number] Other: # Voids 4 - Exam GENERAL DESCRIPTION: Middle-age female lying in bed in no distress RESPIRATORY SYSTEM: Unlabored breathing , coarse breath sound at the base HEART: S1 S2 regular rate and rhythm , ABDOMEN: Soft , no tenderness EXTREMITIES: No edema feet - Labs CBC & Chem 7: 02/15/24 03:55 02/15/24 11:57 Labs: Abnormal Lab Results - Last 24 Hours (Table) 02/13/24 02/13/24 02/14/24 Range/Units 14:28 19:10 14:12 RBC (4.10-5.20) X 10*6/uL Hgb (12.0-15.0) g/dL Hct (37.2-46.3) % Immature Gran # (0.00-0.04) X 10*3/uL Eosinophils # (0.04-0.35) X 10*3/uL Procalcitonin 0.56 H (0.02-0.50) ng/mL Free T3 pg/mL 0.90 L (2.30-4.20) pg/mL EBV Capsid Ag IgG Intrp Positive A (Negative) EBV EA IgG Ab Interp Equivocal A (Negative) EBV Nuc Ag IgG Interp Positive A (Negative) 02/15/24 Range/Units 03:55 RBC 3.61 L (4.10-5.20) X 10*6/uL Hgb 11.5 L (12.0-15.0) g/dL Hct 34.6 L (37.2-46.3) % Immature Gran # 0.27 H (0.00-0.04) X 10*3/uL Eosinophils # 0.01 L (0.04-0.35) X 10*3/uL Procalcitonin (0.02-0.50) ng/mL Free T3 pg/mL (2.30-4.20) pg/mL EBV Capsid Ag IgG Intrp (Negative) EBV EA IgG Ab Interp (Negative) EBV Nuc Ag IgG Interp (Negative) Microbiology - Last 24 Hours (Table) 02/13/24 13:30 Blood Culture - Preliminary Blood 02/13/24 14:15 Urine Culture - Final Urine,Voided Assessment and Plan (1) Sepsis Current Visit: Yes Status: Acute Code(s): A41.9 - SEPSIS, UNSPECIFIED ORGANISM SNOMED Code(s): 97322602 (2) Thrush Current Visit: Yes Status: Acute Code(s): B37.0 - CANDIDAL STOMATITIS SNOMED Code(s): 50361930 (3) Hepatitis Current Visit: Yes Status: Acute Code(s): K75.9 - INFLAMMATORY LIVER DISE ASE, UNSPECIFIED SNOMED Code(s): 795744163 (4) Pneumonia Current Visit: Yes Status: Acute Code(s): J18.9 - PNEUMONIA, UNSPECIFIED ORGANISM SNOMED Code(s): 409150951 Plan: 1patient presented to hospital with sepsis in this patient who did have fever tachycardia meeting criteria for SIRS source likely pneumonia as seen on the CT, of the chest with a question of typical versus atypical pneumonia urine for Legionella antigen has been negative 2-patient also have elevated liver enzymes though acute hepatitis panel negative EBV IgG positive IgM is negative 3- patient has been scheduled for bronchoscopy lavage and deep culture discussed with the pulmonary to obtain PCP stains as well 5-patient to continue with the nystatin swish and swallow Rocephin and Zithromax while waiting for the workup to be completed Dictation was produced using [employer] dictation software. please excuse any grammatical, word or spelling errors.
[2024-02-15] MEDS ORDERED: KETAMINE HCL IN 0.9 % NACL 50 MG/5 ML SYRINGE ONE (13:52)
[2024-02-15] MEDS ORDERED: MIDAZOLAM 2 MG/2 ML VIAL ONE (13:52)
[2024-02-15] MEDS ORDERED: PROPOFOL 10 MG/ML 20 ML VIAL IV ONE (13:52)
[2024-02-15] MEDS ORDERED: LIDOCAINE 2% (PF) 20 MG/ML 5 ML VIAL ONE (13:52)
[2024-02-15] MEDS: IV FLUID CONTINUATION 1,000 ML IV ONE ×2 (13:57→14:18)
[2024-02-15] MEDS: LIDOCAINE 2% INJ 20 MG/ML INTRATRACH ONE (14:11)
[2024-02-15 14:27] LABS: C-ANCA <1:20 Titer (<1:20)
[2024-02-15 14:43] LABS: HIV 2 AB Non-Reactive (Non-Reactive); HIV AB P24 Non-Reactive (Non-Reactive); HIV P24 AG Non-Reactive (Non-Reactive)
--- NOTE | 2024-02-15 14:45 | P.PN ---
Subjective Progress Note Date: 02/15/24 Patient is a 54-year-old female with past medical history significant for rheumatoid arthritis. She does take Simponi and methotrexate on outpatient basis. Primary care provider is Dr. Sneha King. Presents with a chief complaint of weakness and lethargy that started on Wednesday, first noticed at a fo otball game. She is also had intermittent chills and diaphoresis. Appetite has been poor. No nausea or vomiting or other GI manifestations. She denies any recent travel or sick contacts. She denies any shortness of breath, cough, chest pain, hemoptysis. On arrival to the emergency department she did have a high temperature with a Tmax of 103.5 F. Chest CTA protocol was ordered due to an elevated D-dimer. Did not show evidence of pulmonary embolism. Scattered bilateral pulmonary nodules with the largest in the left upper lobe measuring 1.3 x 1.1 cm. Groundglass halo sign around the solid pulmonary nodule in the left upper lobe apex. Multiple other sub-centimeter pulmonary nodules. Prominent bilateral mediastinal and hilar lymphadenopathy noted. There are scattered airspace opacities in the lung bases left greater than right. No history of malignancy. No significant weight loss. CBC: WBC count 6.4, hemoglobin 13.5, hematocrit 39.5, platelets 144. CMP: Sodium 129, potassium 3.8, chloride 92, serum bicarb 29, BUN 16, creatinine 0.75, glucose 126. Lactic 1. AST 782, ALT 444, ALP 431. Lipase 325. Troponins less than 0.012. NT proBNP low. Negative for influenza, RSV, COVID. Most recent vital signs: Temperature 98.4 F, heart rate 103 bpm, blood pressure 102/69 mmHg, SpO2 93% on room air. Normal saline infusing at 130 mL/h. Nontoxic appearance. 02/15/2024, clinically unchanged, continues to have some cough and some limited shortness of breath. She is currently on 2 L of oxygen nasal cannula and she has a pulse ox of 91%. Repeat chest x-ray was done this morning and there is interval worsening of the lower lobe consolidations and the patient has developed bibasilar airspace disease/infiltration. This is most consistent with pneumonia. The patient white cell count remains at 6.1, hemoglobin is 11.5 and a platelet count of 209. Electrolytes are stable. LFTs are improving and the AST has dropped down to 541, ALT is down to 460 and alkaline phosphatase at 407. JUVENTINO was negative. The PE and the c-ANCA were both negative. The Legionella urine antigen was negative. The ultrasound of the gallbladder was done at the time of admission and it showed no acute abnormalities. The plan is to proceed with a bronchoscopy and obtain a bronchoalveolar lavage regarding an ongoing pneumonia in immunocompromised patient who has been taking a combination of Simponi and methotrexate. Objective - Vital Signs Vital signs: Vital Signs Temp 98.8 F 02/15/24 07:53 Pulse 80 02/15/24 07:53 Resp 17 02/15/24 07:53 BP 96/62 02/15/24 07:53 Pulse Ox 91 L 02/15/24 07:53 FiO2 Intake & Output 02/14/24 02/15/24 02/15/24 18:59 06:59 18:59 Intake Total 1560 100 Balance 1560 100 Intake: IV 100 Intake, IV Titration 1560 Amount Sodium Chloride 0.9% 1, 1560 000 ml @ 130 mls/hr IV . [id number] [facility] Rx#:[id number] Other: # Voids 4 - Exam GENERAL EXAM: Alert, 54-year-old white female, well-nourished, comfortable in no apparent distress. The patient is currently on 2 L of oxygen by nasal cannula HEAD: Normocephalic and atraumatic EYES: Normal reaction of pupils, equal size. NOSE: Clear with pink turbinates. THROAT: No erythema or exudates. NECK: No masses, no JVD. CHEST: No chest wall deformity. LUNGS: Crackles in the lung bases bilaterally CVS: S1 and S2 normal with no audible murmur, regular rhythm. No extra heart sounds ABDOMEN: No hepatosplenomegaly, active bowel sounds, no guarding or rigidity. SPINE: No scoliosis or deformity SKIN: No rashes, no cutaneous nodules CENTRAL NERVOUS SYSTEM: No focal deficits, tone is normal in all 4 extremities. EXTREMITIES: There is no peripheral edema, clubbing, or cyanosis. Peripheral pulses are intact. - Labs CBC & Chem 7: 02/15/24 03:55 02/15/24 11:57 Labs: Abnormal Lab Results - Last 24 Hours (Table) 02/14/24 02/15/24 02/15/24 Range/Units 14:12 03:55 03:55 RBC 3.61 L (4.10-5.20) X 10*6/uL Hgb 11.5 L (12.0-15.0) g/dL Hct 34.6 L (37.2-46.3) % Immature Gran # 0.27 H (0.00-0.04) X 10*3/uL Eosinophils # 0.01 L (0.04-0.35) X 10*3/uL Sodium (137-145) mmol/L Potassium (3.5-5.1) mmol/L BUN 8.7 L (9.0-27.0) mg/dL Glucose (74-99) mg/dL Calcium 7.9 L (8.7-10.3) mg/dL AST 643 H (13-35) U/L ALT 530 H (8-44) U/L Alkaline Phosphatase 401 H (41-126) U/L Total Protein 5.9 L (6.2-8.2) g/dL Albumin 2.9 L (3.8-4.9) g/dL Albumin/Globulin Ratio 0.97 L (1.60-3.17) Ratio EBV Capsid Ag IgG Intrp Positive A (Negative) EBV EA IgG Ab Interp Equivocal A (Negative) EBV Nuc Ag IgG Interp Positive A (Negative) 02/15/24 Range/Units 11:57 RBC (4.10-5.20) X 10*6/uL Hgb (12.0-15.0) g/dL Hct (37.2-46.3) % Immature Gran # (0.00-0.04) X 10*3/uL Eosinophils # (0.04-0.35) X 10*3/uL Sodium 135 L (137-145) mmol/L Potassium 3.4 L (3.5-5.1) mmol/L BUN (9.0-27.0) mg/dL Glucose 101 H (74-99) mg/dL Calcium 7.6 L (8.7-10.3) mg/dL AST 541 H (13-35) U/L ALT 460 H (8-44) U/L Alkaline Phosphatase 407 H (41-126) U/L Total Protein 5.6 L (6.2-8.2) g/dL Albumin 2.5 L (3.8-4.9) g/dL Albumin/Globulin Ratio (1.60-3.17) Ratio EBV Capsid Ag IgG Intrp (Negative) EBV EA IgG Ab Interp (Negative) EBV Nuc Ag IgG Interp (Negative) Microbiology - Last 24 Hours (Table) 02/13/24 13:30 Blood Culture - Preliminary Blood 02/13/24 14:15 Urine Culture - Final Urine,Voided Assessment and Plan Assessment: Bilateral lower lobe pneumonia with interval development of infiltration on today's chest x-ray, worse compared to admission, patient is immunocompromised and the patient was taking a combination of Simponi and methotrexate on outpatient basis regarding rheumatoid arthritis. Acute hypoxic respiratory failure currently on 2 L of oxygen by nasal cannula Multiple bilateral scattered pulmonary nodules, associated mediastinal/hilar lymphadenopathy, and minimal bibasilar airspace disease, greater on the left; concerning for possible infectious process. Underlying rheumatoid lung disease not excluded. Metastatic disease is also not excluded although this is felt to be less likely. Acute febrile illness Rheumatoid arthritis, maintained on methotrexate and Simponi on outpatient basis Transaminitis; Gallbladder ultrasound unremarkable; possibly secondary to liver toxicity from RA meds, LFTs are improving Hyponatremia, secondary to poor oral intake Former tobacco smoker, entirely 3 years ago, prior to that smoked approximately 1 pack/week on and off Former tobacco smoker Plan: Patient is currently NPO. Will proceed with a bronchoscopy and obtain a bronchial lavage of the left lower lobe. Continue IV Rocephin and Zithromax Legionella urine antigen is negative The patient is known to have rheumatoid arthritis maintained on Simponi and methotrexate 17.5 mg on a weekly basis on an outpatient basis. The patient presented to us and the patient was having intermittent chills and diaphoresis and feeling weak and tired and sick. Viral screen has been negative. Legionella urine antigen is negative. CT scan of the chest was done and showed evidence of a left lower lobe consolidation in addition to that the patient had mediastinal lymphadenopathy and there was also scattered pulmonary nodules bilaterally largest being around 13 x 11 mm in size in the left upper lobe and smaller nodules in the left upper lobe and the right upper lobe measuring 4 mm in size and another nodule in the left upper lobe measuring 7 mm in size. As for the mediastinal lymph nodes, the largest in the AP window measuring 16 mm in size in addition to other lymph nodes in the right paratracheal area, left hilar and paratracheal area and subcarinal area, smaller in size. She is obviously immunocompromised based on the fact that she has been on a combination of Simponi (TNK alpha prerna) and methotrexate. I feel that the rest of the radi ographic presentation with pulmonary nodules and mediastinal lymphadenopathy could be a representation of methotrexate lung toxicity and/or rheumatoid lungs. Possibility of other opportunistic infections cannot be completely ruled out based on her immunocompromise status. Diseases such as bacterial sepsis, tuberculosis (TB), and fungal and opportunistic infections have been reported. Reported infections include coccidioidomycosis, candidiasis, listeriosis, aspergillosis, blastomycosis, and histoplasmosis. Malignancy is felt to be less likely. The fungal screen/titers were sent LFTs are improving and the patient is currently off methotrexate and Simponi as both drugs can cause toxicity hepatic reactions including acute liver failure.. Will stop methotrexate and Simponi. Will treat the pneumonia. Will need obviously a follow-up CAT scan of the chest within the next 3 to 4 months to as sess progression of the pulmonary nodules and the mediastinal lymph nodes. Bronchoscopy and bronchial lavage of the left lower lobe today.
--- NOTE | 2024-02-15 14:49 | P.PCN ---
Date of Procedure: 02/15/24 Preoperative Diagnosis: Bilateral pneumonia, immunocompromised host Postoperative Diagnosis: Same Procedure(s) Performed: Bronchoscopy and bronchial lavage of the left lower lobe Anesthesia: MAC Surgeon: Jacqui Siddiqui Estimated Blood Loss (ml): 0 Pathology: other Condition: stable Disposition: floor Operative Findings: Procedure was done in the endoscopy suite. Consent was obtained. Timeout was done. The procedure was done under conscious sedation. The patient was placed on a simple mask at 10 L of oxygen nasal cannula After achieving adequate sedation, the flexor bronchoscope was introduced through the left nostril, advanced into the posterior pharynx and upper airways examination was done. Visualized airways include the posterior pharynx, larynx, epiglottis, arytenoids, vocal cords and all of those structures were within normal limits. Total of 2 cc of 1% lidocaine was applied to the vocal cord and following the bronchoscope was advanced into the upper trachea. A complete airway examination was done. The visualized airways including trachea, bilateral mainstem bronchi, right upper lobe bronchus, bronchus and medius, right middle lobe bronchus and the right lower lobe bronchus and the various 10 segments on the right and examination of the left included the left mainstem bronchus, left upper and left lower lobe bronchi and there is a segments on the left. No endobronchial tumors or lesions. No significant respiratory secretions. The mucosa looked healthy. No necrosis. The bronchoscope was advanced to the lateral and the posterior segment of the left lower lobe bronchioloalveolar lavage was done. A total of 120 cc of saline was infused and 25 to 30 cc of saline was aspirated. Aspirate was cloudy and foamy. The aspirate was nonbloody. Therapeutic airway suctioning was done. The bronchoscope was removed and the bronchial lavage from the left lung was sent for microbial cultures and analysis No complications. Patient remained hemodynamically stable and she was oxygenating adequately throughout the procedure.
[2024-02-15] MEDS: polyethylene glycoL 3350 17 GM POWD.PACK PO SCH (14:57)
[2024-02-15] MEDS: POTASSIUM CHLORIDE ER 20 MEQ TAB.ER PO STA (14:57)
[2024-02-15 19:31] LABS: Appearance,BF Blood Tinged (Clear); RBC, Body Fluid 6150 /UL (0-2000)
[2024-02-16 03:49] LABS: Basophils # (A) 0.1 k/uL (0-0.2); Basophils % (A) 1 %; Eosinophils % (A) 1 %; HGB 10.5 gm/dL (11.4-16.0); Hypochromasia Slight; Lymphocytes # (A) 1.2 k/uL (1.0-4.8); Lymphocytes % (A) 19 %; MCH 31.7 pg (25.0-35.0); MCHC 31.9 g/dL (31.0-37.0); MCV 99.4 fL (80.0-100.0); Mean Platelet Volume 9.2; Monocytes # (A) 0.3 k/uL (0-1.0); Monocytes % (A) 4 %; Neutrophils # (A) 4.6 k/uL (1.3-7.7); Neutrophils % (A) 72 %; Platelet Count 205 k/uL (150-450); RBC 3.32 m/uL (3.80-5.40); RDW 14.4 % (11.5-15.5); WBC 6.5 k/uL (3.8-10.6)
[2024-02-16 04:03] LABS: ALT 422 U/L (4-34); AST 511 U/L (14-36); African American GFR (CKD) >90 (>60 ml/min/1.73 sqM); Albumin 2.3 g/dL (3.5-5.0); Albumin/Globulin Ratio 0.8; Alkaline Phosphatase 503 U/L (38-126); Anion Gap 2 mmol/L; Blood Urea Nitrogen 9 mg/dL (7-17); Calcium 7.6 mg/dL (8.4-10.2); Carbon Dioxide 25 mmol/L (22-30); Chloride 108 mmol/L (98-107); Glucose 104 mg/dL (74-99); Magnesium 2.1 mg/dL (1.6-2.3); Non-African American GFR(CKD) >90 (>60 ml/min/1.73 sqM); Potassium 3.7 mmol/L (3.5-5.1); Sodium 135 mmol/L (137-145); Total Bilirubin 1.4 mg/dL (0.2-1.3); Total Protein 5.3 g/dL (6.3-8.2)
--- NOTE | 2024-02-16 07:58 | XR ---
EXAMINATION TYPE: XR chest 2V DATE OF EXAM: 02/16/2024 6:30 AM COMPARISON: 02/15/2024 CLINICAL INDICATION: Female, 54 years old with history of FU pneumonia, , TECHNIQUE: AP and lateral views FINDINGS: Heart normal size. Hazy and confluent mid and lower lung opacities have increased in the interval. No sizable pleural effusion. IMPRESSION: Worsening mid and lower lung airspace disease. [facility], , 02/16/2024 7:55 AM
[2024-02-16] MEDS: ALBUTEROL NEBULIZED 2.5 MG/3 ML INHALATION PRN (08:38)
[2024-02-16] MEDS ORDERED: VANCOMYCIN IV PER PHARMACY 1 EACH MISC MISCELLANE PRN (09:24)
[2024-02-16] MEDS: CEFEPIME 2 GM in SODIUM CHLORIDE 0.9% 100 ML IVPB SCH (10:05)
[2024-02-16] MEDS: VANCOMYCIN 1,250 MG in SODIUM CHLORIDE 0.9% 250 ML IVPB SCH (11:40)
--- NOTE | 2024-02-16 12:24 | P.PN ---
Subjective Progress Note Date: 02/16/24 Hospital Course: 54-year-old female with history of rheumatoid arthritis on methotrexate and Si mponi presenting with generalized weakness. While in the ED, patient was febrile up to 103.5, tachycardia up to 132, respiratory rate 18, blood pressure 100/71, saturating at 93% on room air. Initial laboratory workup showed WBC of 6.4, hemoglobin 13.5, platelet 144, INR 1.3, D-dimer 7.37, sodium 129, bicarb 29, creatinine 0.75, lactate 1, total bili 1.1, AST 782, ALT 444, ALP 431, lipase 325, procalcitonin 0.56, TSH 0.520 and free T41.05, hepatitis panel negative, respiratory viral panel negative, heterophile antibody negative. Chest x-ray concerning for bibasilar infiltrates. EKG showed sinus tachycardia. Gallbladder ultrasound showed no acute process. Chest CTA showed airspace opacities in the lung bases with scattered pulmonary nodules and mediastinal lymphadenopathy, no PE. Pulmonology also consulted. ID consulted. Patient started on empiric IV antibiotics. Likely getting bronchoscopy as well. LFTs now downtrending. Patient had bronchoscopy with bronchial washing. Cultures pending. Subjective: Patient seen and examined at bedside. No acute events overnight. Pertinent positives and negatives as discussed above, a complete review of systems was performed and all other systems are negative. Vitals Signs Reviewed. General: Nontoxic, no distress, appears at stated age Derm: Warm, dry Head: Atraumatic, normocephalic, symmetric Eyes: EOMI, no lid lag, anicteric sclera Mouth: No lip lesion, mucus membranes moist Cardiovascular: S1S2 reg, tachycardic, no murmur Lungs: CTA bilateral, no rhonchi, no rales, no accessory muscle use, supplemental oxygen Abdominal: Soft, nontender to palpation, no guarding, no appreciable organomegaly Ext: No gross muscle atrophy, no edema, no contractures Neuro: CN II-XI grossly intact, no focal neuro deficits Psych: Alert, oriented, appropriate affect Data Reviewed Today: Pertinent Labs: WBC 6.5, hemoglobin 10.5, creatinine 0.64, potassium 3.7, total bili 1.4, AST 511, ALT 422, ALP 503 Imaging: Chest x-ray independently interpreted, shows bilateral worsening interstitial opacities Assessment and Plan: Sepsis secondary to suspected community-acquired pneumonia versus pneumonitis versus fungal pneumonia Acute hypoxic respiratory failure Acute hepatitis, improving Elevated INR Tachycardia History of rheumatoid arthritis on methotrexate and Simponi Hypovolemic hyponatremia, improving Hypokalemia -Cultures pending, no growth to date -Antibiotics broadened to cefepime 2 g IV every 8 hours, vancomycin IV, monitor for toxicity -Continue IV fluids normal saline 50 cc an hour -Autoimmune workup negative -Pulmonology following, status post bronchoscopy -Continue to monitor CMP and coags -ID also following -Also started on MiraLAX 17 g daily -Monitor on telemetry, EKG ordered DVT ppx: Subcu heparin Code status: Full code Anticipated discharge place: Pending clinical course Anticipated discharge time: Pending clinical course Objective - Vital Signs Vital signs: Vital Signs Temp 99.0 F 02/16/24 07:25 Pulse 107 H 02/16/24 12:07 Resp 28 H 02/16/24 12:07 BP 114/74 02/16/24 07:25 Pulse Ox 90 L 02/16/24 08:42 FiO2 Intake & Output 02/15/24 02/16/24 02/16/24 18:59 06:59 18:59 Intake Total 100 Balance 100 Intake: IV 100 Other: # Voids 3 3 - Labs CBC & Chem 7: 02/16/24 03:05 02/16/24 03:05 Labs: Abnormal Lab Results - Last 24 Hours (Table) 02/15/24 02/15/24 02/15/24 Range/Units 03:55 11:57 14:08 RBC (3.80-5.40) m/uL Hgb (11.4-16.0) gm/dL Hct (34.0-46.0) % Sodium 135 L (137-145) mmol/L Potassium 3.4 L (3.5-5.1) mmol/L Chloride (98-107) mmol/L BUN 8.7 L (9.0-27.0) mg/dL Glucose 101 H (74-99) mg/dL Calcium 7.9 L 7.6 L (8.7-10.3) mg/dL Total Bilirubin (0.2-1.3) mg/dL AST 643 H 541 H (13-35) U/L ALT 530 H 460 H (8-44) U/L Alkaline Phosphatase 401 H 407 H (41-126) U/L Total Protein 5.9 L 5.6 L (6.2-8.2) g/dL Albumin 2.9 L 2.5 L (3.8-4.9) g/dL Albumin/Globulin Ratio 0.97 L (1.60-3.17) Ratio Fluid Appearance Blood Tinged A (Clear) 02/16/24 02/16/24 Range/Units 03:05 03:05 RBC 3.32 L (3.80-5.40) m/uL Hgb 10.5 L (11.4-16.0) gm/dL Hct 33.0 L (34.0-46.0) % Sodium 135 L (137-145) mmol/L Potassium (3.5-5.1) mmol/L Chloride 108 H (98-107) mmol/L BUN (9.0-27.0) mg/dL Glucose 104 H (74-99) mg/dL Calcium 7.6 L (8.7-10.3) mg/dL Total Bilirubin 1.4 H (0.2-1.3) mg/dL AST 511 H (13-35) U/L ALT 422 H (8-44) U/L Alkaline Phosphatase 503 H (41-126) U/L Total Protein 5.3 L (6.2-8.2) g/dL Albumin 2.3 L (3.8-4.9) g/dL Albumin/Globulin Ratio (1.60-3.17) Ratio Fluid Appearance (Clear) Microbiology - Last 24 Hours (Table) 02/15/24 14:08 Gram Stain - Preliminary Bronchoalviolar Lavage - Left Bronchial Washings Culture - Preliminary 02/13/24 13:30 Blood Culture - Preliminary Blood
[2024-02-16 14:48] LABS: T4/T8 Ratio (CD4:CD8) 1.9 (1.0-3.7)
--- NOTE | 2024-02-16 20:25 | P.PN ---
Subjective Progress Note Date: 02/16/24 Patient is a 54-year-old female with past medical history significant for rheumatoid arthritis. She does take Simponi and methotrexate on outpatient basis. Primary care provider is Dr. Sneha iKng. Presents with a chief complaint of weakness and lethargy that started on Wednesday, first noticed at a fo otball game. She is also had intermittent chills and diaphoresis. Appetite has been poor. No nausea or vomiting or other GI manifestations. She denies any recent travel or sick contacts. She denies any shortness of breath, cough, chest pain, hemoptysis. On arrival to the emergency department she did have a high temperature with a Tmax of 103.5 F. Chest CTA protocol was ordered due to an elevated D-dimer. Did not show evidence of pulmonary embolism. Scattered bilateral pulmonary nodules with the largest in the left upper lobe measuring 1.3 x 1.1 cm. Groundglass halo sign around the solid pulmonary nodule in the left upper lobe apex. Multiple other sub-centimeter pulmonary nodules. Prominent bilateral mediastinal and hilar lymphadenopathy noted. There are scattered airspace opacities in the lung bases left greater than right. No history of malignancy. No significant weight loss. CBC: WBC count 6.4, hemoglobin 13.5, hematocrit 39.5, platelets 144. CMP: Sodium 129, potassium 3.8, chloride 92, serum bicarb 29, BUN 16, creatinine 0.75, glucose 126. Lactic 1. AST 782, ALT 444, ALP 431. Lipase 325. Troponins less than 0.012. NT proBNP low. Negative for influenza, RSV, COVID. Most recent vital signs: Temperature 98.4 F, heart rate 103 bpm, blood pressure 102/69 mmHg, SpO2 93% on room air. Normal saline infusing at 130 mL/h. Nontoxic appearance. 02/15/2024, clinically unchanged, continues to have some cough and some limited shortness of breath. She is currently on 2 L of oxygen nasal cannula and she has a pulse ox of 91%. Repeat chest x-ray was done this morning and there is interval worsening of the lower lobe consolidations and the patient has developed bibasilar airspace disease/infiltration. This is most consistent with pneumonia. The patient white cell count remains at 6.1, hemoglobin is 11.5 and a platelet count of 209. Electrolytes are stable. LFTs are improving and the AST has dropped down to 541, ALT is down to 460 and alkaline phosphatase at 407. JUVENTINO was negative. The PE and the c-ANCA were both negative. The Legionella urine antigen was negative. The ultrasound of the gallbladder was done at the time of admission and it showed no acute abnormalities. The plan is to proceed with a bronchoscopy and obtain a bronchoalveolar lavage regarding an ongoing pneumonia in immunocompromised patient who has been taking a combination of Simponi and methotrexate. On today's evaluation of 02/16/2024, the patient is clinically unchanged. However, the repeat chest x-ray that was done today shows worsening in the bilateral pulmonary infiltrates noted in the mid and lower lung yee bilaterally. The patient remains on 2 L of oxygen by nasal cannula. Noted a bronchoscopy was done yesterday along with a bronchial lavage. The cultures are still pending. Discussed the case with the pathology and the microbiology department. This may take another 24 to 48 hours. Meanwhile, the blood cultures have been negative. Based on the progression of the pulmonary infiltrates, I started the patient on a combination of cefepime and vancomycin. Meanwhile, the white cell count is at 6.5, hemoglobin 10.5, platelet count is at 205, electrolytes are stable. LFTs are gradually improving. The viral analysis from the bronchoalveolar lavage was essentially negative. Awaiting fungal stains, awaiting PCP stain, absolute CD4 count is 514. Objective - Vital Signs Vital signs: Vital Signs Temp 99.0 F 02/16/24 07:25 Pulse 122 H 02/16/24 08:48 Resp 34 H 02/16/24 07:25 BP 114/74 02/16/24 07:25 Pulse Ox 90 L 02/16/24 08:42 FiO2 Intake & Output 02/15/24 02/16/24 02/16/24 18:59 06:59 18:59 Intake Total 100 Balance 100 Intake: IV 100 Other: # Voids 3 3 - Exam GENERAL EXAM: Alert, 54-year-old white female, well-nourished, comfortable in no apparent distress. The patient is currently on 2 L of oxygen by nasal cannula HEAD: Normocephalic and atraumatic EYES: Normal reaction of pupils, equal size. NOSE: Clear with pink turbinates. THROAT: No erythema or exudates. NECK: No masses, no JVD. CHEST: No chest wall deformity. LUNGS: Crackles in the lung bases bilaterally CVS: S1 and S2 normal with no audible murmur, regular rhythm. No extra heart sounds ABDOMEN: No hepatosplenomegaly, active bowel sounds, no guarding or rigidity. SPINE: No scoliosis or deformity SKIN: No rashes, no cutaneous nodules CENTRAL NERVOUS SYSTEM: No focal deficits, tone is normal in all 4 extremities. EXTREMITIES: There is no peripheral edema, clubbing, or cyanosis. Peripheral pulses are intact. - Labs CBC & Chem 7: 02/16/24 03:05 02/16/24 03:05 Labs: Abnormal Lab Results - Last 24 Hours (Table) 02/15/24 02/15/24 02/15/24 Range/Units 03:55 11:57 14:08 RBC (3.80-5.40) m/uL Hgb (11.4-16.0) gm/dL Hct (34.0-46.0) % Sodium 135 L (137-145) mmol/L Potassium 3.4 L (3.5-5.1) mmol/L Chloride (98-107) mmol/L BUN 8.7 L (9.0-27.0) mg/dL Glucose 101 H (74-99) mg/dL Calcium 7.9 L 7.6 L (8.7-10.3) mg/dL Total Bilirubin (0.2-1.3) mg/dL AST 643 H 541 H (13-35) U/L ALT 530 H 460 H (8-44) U/L Alkaline Phosphatase 401 H 407 H (41-126) U/L Total Protein 5.9 L 5.6 L (6.2-8.2) g/dL Albumin 2.9 L 2.5 L (3.8-4.9) g/dL Albumin/Globulin Ratio 0.97 L (1.60-3.17) Ratio Fluid Appearance Blood Tinged A (Clear) 02/16/24 02/16/24 Range/Units 03:05 03:05 RBC 3.32 L (3.80-5.40) m/uL Hgb 10.5 L (11.4-16.0) gm/dL Hct 33.0 L (34.0-46.0) % Sodium 135 L (137-145) mmol/L Potassium (3.5-5.1) mmol/L Chloride 108 H (98-107) mmol/L BUN (9.0-27.0) mg/dL Glucose 104 H (74-99) mg/dL Calcium 7.6 L (8.7-10.3) mg/dL Total Bilirubin 1.4 H (0.2-1.3) mg/dL AST 511 H (13-35) U/L ALT 422 H (8-44) U/L Alkaline Phosphatase 503 H (41-126) U/L Total Protein 5.3 L (6.2-8.2) g/dL Albumin 2.3 L (3.8-4.9) g/dL Albumin/Globulin Ratio (1.60-3.17) Ratio Fluid Appearance (Clear) Microbiology - Last 24 Hours (Table) 02/15/24 14:08 Gram Stain - Preliminary Bronchoalviolar Lavage - Left 02/13/24 13:30 Blood Culture - Preliminary Blood Assessment and Plan Assessment: Bilateral lower lobe pneumonia with interval development of infiltration on today's chest x-ray, worse compared to admission, patient is immunocompromised and the patient was taking a combination of Simponi and methotrexate on outpatient basis regarding rheumatoid arthritis. Bronchoscopy endobronchial lavage was done. The viral analysis was negative. Awaiting fungal stains, PCP stains, and regular microbiology for bacteria. Antibiotics is modified to include a combination of cefepime and vancomycin. Acute hypoxic respiratory failure currently on 2 L of oxygen by nasal cannula Multiple bilateral scattered pulmonary nodules, associated mediastinal/hilar lymphadenopathy, and minimal bibasilar airspace disease, greater on the left; concerning for possible infectious process. Underlying rheumatoid lung disease not excluded. Metastatic disease is also not excluded although this is felt to be less likely. Acute febrile illness Rheumatoid arthritis, maintained on methotrexate and Simponi on outpatient basis Transaminitis; Gallbladder ultrasound unremarkable; possibly secondary to liver toxicity from RA meds, LFTs are improving Hyponatremia, secondary to poor oral intake Former tobacco smoker, entirely 3 years ago, prior to that smoked approximately 1 pack/week on and off Former tobacco smoker Plan: Titrate oxygen flow to maintain saturation above 90% Antibiotic coverage with cefepime and vancomycin Legionella urine antigen is negative Awaiting fungal stains and PCP stains from the bronchial lavage The fungal screen/titers were sent LFTs are improving and the patient is currently off methotrexate and Simponi as both drugs can cause toxicity hepatic reactions including acute liver failure.. Will stop methotrexate and Simponi. Will treat the pneumonia. Will need obviously a follow-up CAT scan of the chest within the next 3 to 4 months to assess progression of the pulmonary nodules and the mediastinal lymph nodes. Repeat chest x-ray in the morning I will continue to follow
[2024-02-17 04:15] LABS: Mycoplasma IgG Antibody (EIA) 2.33 INDEX (<=0.90); Mycoplasma IgM Antibody 0.62 INDEX (<=0.90)
[2024-02-17 04:22] LABS: ALT 399 U/L (4-34); AST 548 U/L (14-36); African American GFR (CKD) >90 (>60 ml/min/1.73 sqM); Albumin 2.1 g/dL (3.5-5.0); Albumin/Globulin Ratio 0.7; Alkaline Phosphatase 569 U/L (38-126); Anion Gap 2 mmol/L; Blood Urea Nitrogen 10 mg/dL (7-17); Calcium 7.6 mg/dL (8.4-10.2); Carbon Dioxide 27 mmol/L (22-30); Chloride 106 mmol/L (98-107); Globulin 3.1 g/dL; Glucose 112 mg/dL (74-99); Magnesium 2.1 mg/dL (1.6-2.3); Non-African American GFR(CKD) >90 (>60 ml/min/1.73 sqM); Potassium 3.5 mmol/L (3.5-5.1); Sodium 135 mmol/L (137-145); Total Bilirubin 2.1 mg/dL (0.2-1.3); Total Protein 5.2 g/dL (6.3-8.2)
[2024-02-17] MEDS: ONDANSETRON 4 MG/2 ML VIAL IVP PRN (06:44)
--- NOTE | 2024-02-17 07:56 | XR ---
EXAMINATION TYPE: XR chest 2V DATE OF EXAM: 02/17/2024 6:26 AM COMPARISON: 02/16/2024 CLINICAL INDICATION: Female, 54 years old with history of Pneumonia follow-up, TECHNIQUE: Frontal and lateral views of the chest are obtained. FINDINGS: Mixed infiltrates persist perihilar basilar regions with small bilateral pleural effusion. Overall no change appreciated.. The cardiac silhouette size is within normal limits. The osseous s tructures are intact. IMPRESSION: Mixed infiltrates persist perihilar basilar regions with small bilateral pleural effusio n. Overall no change appreciated.. [facility], , 02/17/2024 7:53 AM
--- NOTE | 2024-02-17 09:24 | P.PN ---
Subjective Progress Note Date: 02/16/24 Principal diagnosis: Reason for follow-up is pneumonia Patient is a 54-year-old female with a past medical history of osteoarthritis management arthritis COVID-19 in 2020, previous history of smoking presenting to the hospital for evaluation of not feeling well, patient was noted to be febrile did have a CT angiogram of the chest did shows airspace opacities lung base scattered pulmonary nodules. On today's evaluation that is 02/16/2024, Patient did spike another fever of 103 F last evening however the patient is afebrile this afternoon patient mention breathing slightly comfortably denies any chest pain no worsening cough no nausea no vomiting no abdominal pain or diarrhea. The patient white count 6.5 creatinine 0.64 liver enzymes remains to be elevated BAL cultures currently pending Objective - Vital Signs Vital signs: Vital Signs Temp 99.0 F 02/16/24 07:25 Pulse 122 H 02/16/24 08:48 Resp 34 H 02/16/24 07:25 BP 114/74 02/16/24 07:25 Pulse Ox 90 L 02/16/24 08:42 FiO2 Intake & Output 02/15/24 02/16/24 02/16/24 18:59 06:59 18:59 Intake Total 100 Balance 100 Intake: IV 100 Other: # Voids 3 3 - Exam GENERAL DESCRIPTION: Middle-age female lying in bed in no distress RESPIRATORY SYSTEM: Unlabored breathing , coarse breath sound at the base HEART: S1 S2 regular rate and rhythm , ABDOMEN: Soft , no tenderness EXTREMITIES: No edema feet - Labs CBC & Chem 7: 02/16/24 03:05 02/17/24 02:27 Labs: Abnormal Lab Results - Last 24 Hours (Table) 02/15/24 02/15/24 02/15/24 Range/Units 03:55 11:57 14:08 RBC (3.80-5.40) m/uL Hgb (11.4-16.0) gm/dL Hct (34.0-46.0) % Sodium 135 L (137-145) mmol/L Potassium 3.4 L (3.5-5.1) mmol/L Chloride (98-107) mmol/L BUN 8.7 L (9.0-27.0) mg/dL Glucose 101 H (74-99) mg/dL Calcium 7.9 L 7.6 L (8.7-10.3) mg/dL Total Bilirubin (0.2-1.3) mg/dL AST 643 H 541 H (13-35) U/L ALT 530 H 460 H (8-44) U/L Alkaline Phosphatase 401 H 407 H (41-126) U/L Total Protein 5.9 L 5.6 L (6.2-8.2) g/dL Albumin 2.9 L 2.5 L (3.8-4.9) g/dL Albumin/Globulin Ratio 0.97 L (1.60-3.17) Ratio Fluid Appearance Blood Tinged A (Clear) 02/16/24 02/16/24 Range/Units 03:05 03:05 RBC 3.32 L (3.80-5.40) m/uL Hgb 10.5 L (11.4-16.0) gm/dL Hct 33.0 L (34.0-46.0) % Sodium 135 L (137-145) mmol/L Potassium (3.5-5.1) mmol/L Chloride 108 H (98-107) mmol/L BUN (9.0-27.0) mg/dL Glucose 104 H (74-99) mg/dL Calcium 7.6 L (8.7-10.3) mg/dL Total Bilirubin 1.4 H (0.2-1.3) mg/dL AST 511 H (13-35) U/L ALT 422 H (8-44) U/L Alkaline Phosphatase 503 H (41-126) U/L Total Protein 5.3 L (6.2-8.2) g/dL Albumin 2.3 L (3.8-4.9) g/dL Albumin/Globulin Ratio (1.60-3.17) Ratio Fluid Appearance (Clear) Microbiology - Last 24 Hours (Table) 02/15/24 14:08 Gram Stain - Preliminary Bronchoalviolar Lavage - Left 02/13/24 13:30 Blood Culture - Preliminary Blood Assessment and Plan (1) Sepsis Current Visit: Yes Status: Acute Code(s): A41.9 - SEPSIS, UNSPECIFIED ORGANISM SNOMED Code(s): 06130526 (2) Thrush Current Visit: Yes Status: Acute Code(s): B37.0 - CANDIDAL STOMATITIS SNOMED Code(s): 61193239 (3) Hepatitis Current Visit: Yes Status: Acute Code(s): K75.9 - INFLAMMATORY LIVER DISEASE, UNSPECIFIED SNOMED Code(s): 945395560 (4) Pneumonia Current Visit: Yes Status: Acute Code(s): J18.9 - PNEUMONIA, UNSPECIFIED ORGANISM SNOMED Code(s): 041669000 Plan: 1patient presented to hospital with sepsis in this patient who did have fever tachycardia meeting criteria for SIRS source likely pneumonia as seen on the CT, of the chest with a question of typical versus atypical pneumonia urine for Legionella antigen has been negative 2-patient also have elevated liver enzymes though acute hepatitis panel negative EBV IgG positive IgM is negative, gallbladder ultrasound did not show any features of cholecystitis 3- patient is status post bronchoscopy lavage and deep culture which are currently pending 4patient antibiotics has been adjusted to cefepime and vancomycin to continue while waiting for the culture to finalize Dictation was produced using [employer] dictation software. please excuse any grammatical, word or spelling errors. Time with Patient: Less than 30
[2024-02-17 10:47] LABS: HGB 9.9 g/dL (12.0-15.0); MCH 31.6 pg (27.0-32.0); MCV 95.8 FL (80.0-97.0); Mean Platelet Volume 11.3 FL (9.5-12.2); NRBC Per 100 WBC 0 X 10*3/uL (0.00-0.01); Platelet Count 187 X 10*3/uL (140-440); RBC 3.13 X 10*6/uL (4.10-5.20); RDW 14.5 % (11.5-14.5); WBC 6.15 X 10*3/uL (4.50-10.00)
[2024-02-17 11:43] LABS: Basophils # (A) 0.05 X 10*3/uL (0.00-0.10); Basophils % (A) 0.8 %; Eosinophils # (A) 0.03 X 10*3/uL (0.04-0.35); Eosinophils % (A) 0.5 %; Lymphocytes # (A) 1.27 X 10*3/uL (0.90-5.00); Lymphocytes % (A) 20.7 %; Monocytes # (A) 0.39 X 10*3/uL (0.20-1.00); Monocytes % (A) 6.3 %; Neutrophils # (A) 4.19 X 10*3/uL (1.80-7.70); Neutrophils % (A) 68.1 %; RBC Morphology Normal (Normal)
--- NOTE | 2024-02-17 12:50 | P.PN ---
Subjective Progress Note Date: 02/17/24 Hospital Course: 54-year-old female with history of rheumatoid arthritis on methotrexate and Si mponi presenting with generalized weakness. While in the ED, patient was febrile up to 103.5, tachycardia up to 132, respiratory rate 18, blood pressure 100/71, saturating at 93% on room air. Initial laboratory workup showed WBC of 6.4, hemoglobin 13.5, platelet 144, INR 1.3, D-dimer 7.37, sodium 129, bicarb 29, creatinine 0.75, lactate 1, total bili 1.1, AST 782, ALT 444, ALP 431, lipase 325, procalcitonin 0.56, TSH 0.520 and free T41.05, hepatitis panel negative, respiratory viral panel negative, heterophile antibody negative. Chest x-ray concerning for bibasilar infiltrates. EKG showed sinus tachycardia. Gallbladder ultrasound showed no acute process. Chest CTA showed airspace opacities in the lung bases with scattered pulmonary nodules and mediastinal lymphadenopathy, no PE. Pulmonology also consulted. ID consulted. Patient started on empiric IV antibiotics. Likely getting bronchoscopy as well. LFTs now downtrending. Patient had bronchoscopy with bronchial washing. Cultures pending. Subjective: Patient seen and examined at bedside. No acute events overnight. Still having shortness of breath. Pertinent positives and negatives as discussed above, a complete review of systems was performed and all other systems are negative. Vitals Signs Reviewed. General: Nontoxic, no distress, appears at stated age Derm: Warm, dry Head: Atraumatic, normocephalic, symmetric Eyes: EOMI, no lid lag, anicteric sclera Mouth: No lip lesion, mucus membranes moist Cardiovascular: S1S2 reg, tachycardic, no murmur Lungs: Bilateral rales, no accessory muscle use, supplemental oxygen Abdominal: Soft, nontender to palpation, no guarding, no appreciable organomegaly Ext: No gross muscle atrophy, no edema, no contractures Neuro: CN II-XI grossly intact, no focal neuro deficits Psych: Alert, oriented, appropriate affect Data Reviewed Today: Pertinent Labs: WBC 6.15, hemoglobin 9.9, sodium 135, creatinine 0.61, AST 548, ALT 399, ALP 569, total bili 2.1 Imaging: Chest x-ray independently interpreted, shows bilateral worsening interstitial opacities Assessment and Plan: Sepsis secondary to suspected community-acquired pneumonia versus pneumonitis versus fungal pneumonia Acute hypoxic respiratory failure Acute hepatitis, stable Hyperbilirubinemia Elevated INR Sinus tachycardia History of rheumatoid arthritis on methotrexate and Simponi Hypovolemic hyponatremia, resolved Hypokalemia, resolved -Cultures pending, no growth to date -Continue cefepime 2 g IV every 8 hours, vancomycin IV, monitor for renal toxicity -Continue IV fluids normal saline 50 cc an hour -Autoimmune workup negative -Pulmonology following, status post bronchoscopy -Continue to monitor CMP and coags -ID also following -Continue on MiraLAX 17 g daily -Monitor on telemetry -Wean oxygen DVT ppx: Subcu heparin Code status: Full code Anticipated discharge place: Pending clinical course Anticipated discharge time: Pending clinical course Objective - Vital Signs Vital signs: Vital Signs Temp 97.6 F 02/17/24 07:17 Pulse 122 H 02/17/24 07:17 Resp 20 02/17/24 07:17 BP 106/74 02/17/24 07:17 Pulse Ox 91 L 02/17/24 07:17 FiO2 Intake & Output 02/16/24 02/17/24 02/17/24 18:59 06:59 18:59 Other: Voiding Method Toilet # Voids 3 1 - Labs CBC & Chem 7: 02/17/24 02:27 02/17/24 02:27 Labs: Abnormal Lab Results - Last 24 Hours (Table) 02/15/24 02/17/24 02/17/24 Range/Units 03:55 02:27 02:27 RBC 3.13 L (4.10-5.20) X 10*6/uL Hgb 9.9 L (12.0-15.0) g/dL Hct 30.0 L (37.2-46.3) % Immature Gran # 0.22 H (0.00-0.04) X 10*3/uL Eosinophils # 0.03 L (0.04-0.35) X 10*3/uL Sodium 135 L (137-145) mmol/L Glucose 112 H (74-99) mg/dL Calcium 7.6 L (8.4-10.2) mg/dL Total Bilirubin 2.1 H (0.2-1.3) mg/dL AST 548 H (14-36) U/L ALT 399 H (4-34) U/L Alkaline Phosphatase 569 H (38-126) U/L Total Protein 5.2 L (6.3-8.2) g/dL Albumin 2.1 L (3.5-5.0) g/dL Mycoplasma pneumon IgG 2.33 H (<=0.90) INDEX Microbiology - Last 24 Hours (Table) 02/13/24 13:30 Blood Culture - Preliminary Blood 02/15/24 14:08 Acid Fast Bacilli Smear - Preliminary Bronchoalviolar Lavage - Left 02/15/24 14:08 Gram Stain - Preliminary Bronchoalviolar Lavage - Left Bronchial Washings Culture - Preliminary
--- NOTE | 2024-02-17 13:26 | P.PN ---
Subjective Progress Note Date: 02/17/24 Principal diagnosis: Reason for follow-up is pneumonia Patient is a 54-year-old female with a past medical history of osteoarthritis management arthritis COVID-19 in 2020, previous history of smoking presenting to the hospital for evaluation of not feeling well, patient was noted to be febrile did have a CT angiogram of the chest did shows airspace opacities lung base scattered pulmonary nodules. On today's evaluation that is 02/17/2024,the patient did have improvement in her fever pattern with the last temperature of 100.3 F last evening afebrile this morning patient still complaining of shortness of breath on minimal exertion however denies any worsening chest pain or cough no nausea vomiting no abdominal pain or diarrhea currently on 3 L nasal cannula oxygen. Patient white count 6.15 creatinine 0.61 did have further worsening of her liver enzymes BAL culture currently pending chest x-ray from this morning no change appreciated Objective - Vital Signs Vital signs: Vital Signs Temp 97.6 F 02/17/24 07:17 Pulse 122 H 02/17/24 07:17 Resp 20 02/17/24 07:17 BP 106/74 02/17/24 07:17 Pulse Ox 91 L 02/17/24 07:17 FiO2 Intake & Output 02/16/24 02/17/24 02/17/24 18:59 06:59 18:59 Other: Voiding Method Toilet # Voids 3 1 - Exam GENERAL DESCRIPTION: Middle-age female lying in bed in no distress RESPIRATORY SYSTEM: Unlabored breathing , coarse breath sound at the base HEART: S1 S2 regular rate and rhythm , ABDOMEN: Soft , no tenderness EXTREMITIES: No edema feet - Labs CBC & Chem 7: 02/17/24 02:27 02/17/24 02:27 Labs: Abnormal Lab Results - Last 24 Hours (Table) 02/15/24 02/17/24 02/17/24 Range/Units 03:55 02:27 02:27 RBC 3.13 L (4.10-5.20) X 10*6/uL Hgb 9.9 L (12.0-15.0) g/dL Hct 30.0 L (37.2-46.3) % Sodium 135 L (137-145) mmol/L Glucose 112 H (74-99) mg/dL Calcium 7.6 L (8.4-10.2) mg/dL Total Bilirubin 2.1 H (0.2-1.3) mg/dL AST 548 H (14-36) U/L ALT 399 H (4-34) U/L Alkaline Phosphatase 569 H (38-126) U/L Total Protein 5.2 L (6.3-8.2) g/dL Albumin 2.1 L (3.5-5.0) g/dL Mycoplasma pneumon IgG 2.33 H (<=0.90) INDEX Microbiology - Last 24 Hours (Table) 02/13/24 13:30 Blood Culture - Preliminary Blood 02/15/24 14:08 Acid Fast Bacilli Smear - Preliminary Bronchoalviolar Lavage - Left 02/15/24 14:08 Gram Stain - Preliminary Bronchoalviolar Lavage - Left Bronchial Washings Culture - Preliminary Assessment and Plan (1) Sepsis Current Visit: Yes Status: Acute Code(s): A41.9 - SEPSIS, UNSPECIFIED ORGANISM SNOMED Code(s): 65835011 (2) Thrush Current Visit: Yes Status: Acute Code(s): B37.0 - CANDIDAL STOMATITIS SNOMED Code(s): 79317118 (3) Hepatitis Current Visit: Yes Status: Acute Code(s): K75.9 - INFLAMMATORY LIVER DISEASE, UNSPECIFIED SNOMED Code(s): 070592396 (4) Pneumonia Current Visit: Yes Status: Acute Code(s): J18.9 - PNEUMONIA, UNSPECIFIED ORGANISM SNOMED Code(s): 077198643 Plan: 1patient presented to hospital with sepsis in this patient who did have fever tachycardia meeting criteria for SIRS source likely pneumonia as seen on the CT, of the chest with a question of typical versus atypical pneumonia urine for L egionella antigen has been negative 2-patient also have elevated liver enzymes though acute hepatitis panel negative EBV IgG positive IgM is negative, gallbladder ultrasound did not show any features of cholecystitis 3- patient is status post bronchoscopy lavage and deep culture which are currently pending 4patient antibiotics has been adjusted to cefepime and vancomycin and the patient did have improvement the fever pattern will be continue with current antibiotics while waiting for the culture to finalize Dictation was produced using [employer] dictation software. please excuse any grammatical, word or spelling errors. Time with Patient: Less than 30
--- NOTE | 2024-02-17 14:52 | P.PN ---
Subjective Progress Note Date: 02/17/24 Patient is a 54-year-old female with past medical history significant for rheumatoid arthritis. She does take Simponi and methotrexate on outpatient basis. Primary care provider is Dr. Sneha King. Presents with a chief complaint of weakness and lethargy that started on Wednesday, first noticed at a fo otball game. She is also had intermittent chills and diaphoresis. Appetite has been poor. No nausea or vomiting or other GI manifestations. She denies any recent travel or sick contacts. She denies any shortness of breath, cough, chest pain, hemoptysis. On arrival to the emergency department she did have a high temperature with a Tmax of 103.5 F. Chest CTA protocol was ordered due to an elevated D-dimer. Did not show evidence of pulmonary embolism. Scattered bilateral pulmonary nodules with the largest in the left upper lobe measuring 1.3 x 1.1 cm. Groundglass halo sign around the solid pulmonary nodule in the left upper lobe apex. Multiple other sub-centimeter pulmonary nodules. Prominent bilateral mediastinal and hilar lymphadenopathy noted. There are scattered airspace opacities in the lung bases left greater than right. No history of malignancy. No significant weight loss. CBC: WBC count 6.4, hemoglobin 13.5, hematocrit 39.5, platelets 144. CMP: Sodium 129, potassium 3.8, chloride 92, serum bicarb 29, BUN 16, creatinine 0.75, glucose 126. Lactic 1. AST 782, ALT 444, ALP 431. Lipase 325. Troponins less than 0.012. NT proBNP low. Negative for influenza, RSV, COVID. Most recent vital signs: Temperature 98.4 F, heart rate 103 bpm, blood pressure 102/69 mmHg, SpO2 93% on room air. Normal saline infusing at 130 mL/h. Nontoxic appearance. 02/15/2024, clinically unchanged, continues to have some cough and some limited shortness of breath. She is currently on 2 L of oxygen nasal cannula and she has a pulse ox of 91%. Repeat chest x-ray was done this morning and there is interval worsening of the lower lobe consolidations and the patient has developed bibasilar airspace disease/infiltration. This is most consistent with pneumonia. The patient white cell count remains at 6.1, hemoglobin is 11.5 and a platelet count of 209. Electrolytes are stable. LFTs are improving and the AST has dropped down to 541, ALT is down to 460 and alkaline phosphatase at 407. JUVENTINO was negative. The PE and the c-ANCA were both negative. The Legionella urine antigen was negative. The ultrasound of the gallbladder was done at the time of admission and it showed no acute abnormalities. The plan is to proceed with a bronchoscopy and obtain a bronchoalveolar lavage regarding an ongoing pneumonia in immunocompromised patient who has been taking a combination of Simponi and methotrexate. On today's evaluation of 02/16/2024, the patient is clinically unchanged. However, the repeat chest x-ray that was done today shows worsening in the bilateral pulmonary infiltrates noted in the mid and lower lung yee bilaterally. The patient remains on 2 L of oxygen by nasal cannula. Noted a bronchoscopy was done yesterday along with a bronchial lavage. The cultures are still pending. Discussed the case with the pathology and the microbiology department. This may take another 24 to 48 hours. Meanwhile, the blood cultures have been negative. Based on the progression of the pulmonary infiltrates, I started the patient on a combination of cefepime and vancomycin. Meanwhile, the white cell count is at 6.5, hemoglobin 10.5, platelet count is at 205, electrolytes are stable. LFTs are gradually improving. The viral analysis from the bronchoalveolar lavage was essentially negative. Awaiting fungal stains, awaiting PCP stain, absolute CD4 count is 514. On 02/17/2024, the patient's overall condition is stable. She is having episode of low-grade fever with a Tmax of 100.3. Chest x-ray findings from today shows stable infiltration in the middle lung bases bilaterally. She is on oxygen and 4 L nasal cannula. Final cultures have not resulted yet. The white cell count is 6.1. Hemoglobin is 9.9. She does have abnormal LFTs with transaminitis as mentioned earlier. The bronchoalveolar lavage AFB was negative. There was no acid f fast organisms. The bacterial cultures came back negative and the patient remains on a combination of cefepime and vancomycin. Objective - Vital Signs Vital signs: Vital Signs Temp 97.6 F 02/17/24 07:17 Pulse 122 H 02/17/24 07:17 Resp 20 02/17/24 07:17 BP 106/74 02/17/24 07:17 Pulse Ox 91 L 02/17/24 07:17 FiO2 Intake & Output 1102/17/24 02/17/24 18:59 06:59 18:59 Other: Voiding Method Toilet # Voids 3 1 - Exam GENERAL EXAM: Alert, 54-year-old white female, well-nourished, comfortable in no apparent distress. The patient is currently on 2 L of oxygen by nasal cannula HEAD: Normocephalic and atraumatic EYES: Normal reaction of pupils, equal size. NOSE: Clear with pink turbinates. THROAT: No erythema or exudates. NECK: No masses, no JVD. CHEST: No chest wall deformity. LUNGS: Crackles in the lung bases bilaterally CVS: S1 and S2 normal with no audible murmur, regular rhythm. No extra heart sounds ABDOMEN: No hepatosplenomegaly, active bowel sounds, no guarding or rigidity. SPINE: No scoliosis or deformity SKIN: No rashes, no cutaneous nodules CENTRAL NERVOUS SYSTEM: No focal deficits, tone is normal in all 4 extremities. EXTREMITIES: There is no peripheral edema, clubbing, or cyanosis. Peripheral pulses are intact. - Labs CBC & Chem 7: 02/17/24 02:27 02/17/24 02:27 Labs: Abnormal Lab Results - Last 24 Hours (Table) 02/15/24 02/17/24 02/17/24 Range/Units 03:55 02:27 02:27 RBC 3.13 L (4.10-5.20) X 10*6/uL Hgb 9.9 L (12.0-15.0) g/dL Hct 30.0 L (37.2-46.3) % Sodium 135 L (137-145) mmol/L Glucose 112 H (74-99) mg/dL Calcium 7.6 L (8.4-10.2) mg/dL Total Bilirubin 2.1 H (0.2-1.3) mg/dL AST 548 H (14-36) U/L ALT 399 H (4-34) U/L Alkaline Phosphatase 569 H (38-126) U/L Total Protein 5.2 L (6.3-8.2) g/dL Albumin 2.1 L (3.5-5.0) g/dL Mycoplasma pneumon IgG 2.33 H (<=0.90) INDEX Microbiology - Last 24 Hours (Table) 02/13/24 13:30 Blood Culture - Preliminary Blood 02/15/24 14:08 Acid Fast Bacilli Smear - Preliminary Bronchoalviolar Lavage - Left 02/15/24 14:08 Gram Stain - Preliminary Bronchoalviolar Lavage - Left Bronchial Washings Culture - Preliminary Assessment and Plan Assessment: Bilateral lower lobe pneumonia with interval development of infiltration on t savanah's chest x-ray, worse compared to admission, patient is immunocompromised and the patient was taking a combination of Simponi and methotrexate on outpatient basis regarding rheumatoid arthritis. Bronchoscopy endobronchial lavage was done. The viral analysis was negative. Awaiting fungal stains, PCP stains. Antibiotics is modified to include a combination of cefepime and vancomycin. The bacterial cultures came back negative. Acute hypoxic respiratory failure currently on 4 L of oxygen by nasal cannula Multiple bilateral scattered pulmonary nodules, associated mediastinal/hilar lymphadenopathy, and minimal bibasilar airspace disease, greater on the left; concerning for possible infectious process. Underlying rheumatoid lung disease not excluded. Metastatic disease is also not excluded although this is felt to be less likely. Acute febrile illness Rheumatoid arthritis, maintained on methotrexate and Simponi on outpatient basis Transaminitis; Gallbladder ultrasound unremarkable; possibly secondary to liver toxicity from RA meds, LFTs are improving Hyponatremia, secondary to poor oral intake Former tobacco smoker, entirely 3 years ago, prior to that smoked approximately 1 pack/week on and off Former tobacco smoker Plan: Titrate oxygen flow to maintain saturation above 90%, currently on 4 L Antibiotic coverage with cefepime and vancomycin Legionella urine antigen is negative Awaiting fungal stains and PCP stains from the bronchoalveolar lavage The fungal screen/titers were sent and the titers are pending LFTs are improving and the patient is currently off methotrexate and Simponi as both drugs can cause toxicity hepatic reactions including acute liver failure.. Will stop methotrexate and Simponi. Will treat the pneumonia. Will need obviously a follow-up CAT scan of the chest within the next 3 to 4 months to assess progression of the pulmonary nodules and the mediastinal lymph nodes. Repeat chest x-ray in the morning I will continue to follow
[2024-02-17] MEDS: VANCOMYCIN TROUGH DUE 1 EACH MISC MISCELLANE ONE (18:37)
[2024-02-18] MEDS: VANCOMYCIN 1,500 MG in SODIUM CHLORIDE 0.9% 500 ML 500 ML IVPB SCH (02:28)
[2024-02-18 04:04] LABS: ALT 405 U/L (4-34); AST 561 U/L (14-36); African American GFR (CKD) >90 (>60 ml/min/1.73 sqM); Albumin 2.2 g/dL (3.5-5.0); Albumin/Globulin Ratio 0.7; Alkaline Phosphatase 591 U/L (38-126); Anion Gap 2 mmol/L; Blood Urea Nitrogen 9 mg/dL (7-17); Calcium 7.4 mg/dL (8.4-10.2); Carbon Dioxide 27 mmol/L (22-30); Chloride 102 mmol/L (98-107); Globulin 3.3 g/dL; Glucose 102 mg/dL (74-99); Non-African American GFR(CKD) >90 (>60 ml/min/1.73 sqM); Potassium 3.4 mmol/L (3.5-5.1); Sodium 131 mmol/L (137-145); Total Bilirubin 2.3 mg/dL (0.2-1.3); Total Protein 5.5 g/dL (6.3-8.2)
--- NOTE | 2024-02-18 08:58 | XR ---
EXAMINATION TYPE: XR chest 2V DATE OF EXAM: 02/18/2024 6:31 AM COMPARISON: 02/17/2024 CLINICAL INDICATION: Female, 54 years old with history of Pneumonia follow-up, , TECHNIQUE: PA and lateral views FINDINGS: Heart normal size. Interstitial opacities persist along with small bilateral pleural effusions. Lower lung Kong B lines. Bibasilar opacities. IMPRESSION: Correlation for ongoing CHF with interstitial pulmonary edema. Continued small bilateral pleural effu sions with adjacent atelectasis and/or consolidation. [facility], , 02/18/2024 8:55 AM
[2024-02-18 09:59] LABS: HCT 29.7 % (37.2-46.3); MCH 31.7 pg (27.0-32.0); MCHC 33.7 g/dL (32.0-37.0); MCV 94.3 FL (80.0-97.0); Mean Platelet Volume 11.8 FL (9.5-12.2); NRBC Per 100 WBC 0 X 10*3/uL (0.00-0.01); Platelet Count 164 X 10*3/uL (140-440); RBC 3.15 X 10*6/uL (4.10-5.20); RDW 14.6 % (11.5-14.5); WBC 6.38 X 10*3/uL (4.50-10.00)
[2024-02-18] MEDS ORDERED: VORICONAZOLE 200 MG in SODIUM CHLORIDE 0.9% 100 ML IVPB SCH (10:00)
[2024-02-18 10:05] LABS: INR 1.49 sec (0.93-1.11); Prothrombin Time 15.7 sec (9.9-11.9)
[2024-02-18] MEDS: LEVOFLOXACIN 750MG-D5W PMX 750 MG in DEXTROSE/WATER 1 150ML.BAG IVPB SCH (10:20)
[2024-02-18] MEDS: methylPREDNISolone SOD SUCCI 125 MG/2 ML VIAL IV SCH (10:20)
[2024-02-18] MEDS: FUROSEMIDE 10 MG/ML 4 ML VIAL IV SCH (10:21)
--- NOTE | 2024-02-18 10:50 | P.PN ---
Subjective Hospital Course: 54-year-old female with history of rheumatoid arthritis on methotrexate and Simponi presenting with generalized weakness. While in the ED, patient was febrile up to 103.5, tachycardia up to 132, respiratory rate 18, blood pressure 100/71, saturating at 93% on room air. Initial laboratory workup showed WBC of 6.4, hemoglobin 13.5, platelet 144, INR 1.3, D-dimer 7.37, sodium 129, bicarb 29, creatinine 0.75, lactate 1, total bili 1.1, AST 782, ALT 444, ALP 431, lipase 325, procalcitonin 0.56, TSH 0.520 and free T41.05, hepatitis panel negative, respiratory viral panel negative, heterophile antibody negative. Nahomy st x-ray concerning for bibasilar infiltrates. EKG showed sinus tachycardia. Gallbladder ultrasound showed no acute process. Chest CTA showed airspace opacities in the lung bases with scattered pulmonary nodules and mediastinal lymphadenopathy, no PE. Pulmonology also consulted. ID consulted. Patient started on empiric IV antibiotics. Likely getting bronchoscopy as well. LFTs now downtrending. Patient had bronchoscopy with bronchial washing. Cultures pending. Subjective: Patient seen and examined at bedside. No acute events overnight. Still having shortness of breath. Pertinent positives and negatives as discussed above, a complete review of systems was performed and all other systems are negative. Vitals Signs Reviewed. General: Nontoxic, no distress, appears at stated age Derm: Warm, dry Head: Atraumatic, normocephalic, symmetric Eyes: EOMI, no lid lag, anicteric sclera Mouth: No lip lesion, mucus membranes moist Cardiovascular: S1S2 reg, tachycardic, no murmur Lungs: Bilateral rales, no accessory muscle use, supplemental oxygen Abdominal: Soft, nontender to palpation, no guarding, no appreciable organomegaly Ext: No gross muscle atrophy, no edema, no contractures Neuro: CN II-XI grossly intact, no focal neuro deficits Psych: Alert, oriented, appropriate affect Data Reviewed Today: Pertinent Labs: WBC 6.15, hemoglobin 9.9, sodium 135, creatinine 0.61, AST 548, ALT 399, ALP 569, total bili 2.1 Imaging: Chest x-ray independently interpreted, shows bilateral worsening interstitial opacities Assessment and Plan: Sepsis secondary to suspected community-acquired pneumonia versus pneumonitis versus fungal pneumonia Acute hypoxic respiratory failure Acute hepatitis, stable Hyperbilirubinemia Elevated INR Sinus tachycardia History of rheumatoid arthritis on methotrexate and Simponi Hypovolemic hyponatremia, resolved Hypokalemia, resolved -Cultures pending, no growth to date -Continue cefepime 2 g IV every 8 hours, vancomycin IV, monitor for renal to xicity -Continue IV fluids normal saline 50 cc an hour -Autoimmune workup negative -Pulmonology following, status post bronchoscopy -Continue to monitor CMP and coags -ID also following -Continue on MiraLAX 17 g daily -Monitor on telemetry -Wean oxygen 02/17 Patient seen and examined at bedside Urine down for chest x-ray this morning Independently reviewed chest x-ray, showing with pulmonary effusion, blunting of the costophrenic angles on the left Diffuse rhonchi with underlying crackles heard on physical examination Start patient on Lasix 40 mg IV daily Monitor I's and O's She did require increasing oxygen requirements, now requiring 6 L nasal cannula Continue to wean oxygen as tolerated Differentials possibly PE but low suspicion at this time other symptoms could be explained by the fact that she was receiving continuous IV fluids at 50 cc an hours Normal saline has been discontinued Continue antibiotics DVT ppx: Subcu heparin Code status: Full code Anticipated discharge place: Pending clinical course Anticipated discharge time: Pending clinical course Objective - Vital Signs Vital signs: Vital Signs Temp 97.6 F 02/17/24 07:17 Pulse 122 H 02/17/24 07:17 Resp 20 02/17/24 07:17 BP 106/74 02/17/24 07:17 Pulse Ox 91 L 02/17/24 07:17 FiO2 Intake & Output 02/16/24 02/17/24 02/17/24 18:59 06:59 18:59 Other: Voiding Method Toilet # Voids 3 1 - Labs CBC & Chem 7: 02/17/24 02:27 02/17/24 02:27 Labs: Abnormal Lab Results - Last 24 Hours (Table) 02/15/24 02/17/24 02/17/24 Range/Units 03:55 02:27 02:27 RBC 3.13 L (4.10-5.20) X 10*6/uL Hgb 9.9 L (12.0-15.0) g/dL Hct 30.0 L (37.2-46.3) % Immature Gran # 0.22 H (0.00-0.04) X 10*3/uL Eosinophils # 0.03 L (0.04-0.35) X 10*3/uL Sodium 135 L (137-145) mmol/L Glucose 112 H (74-99) mg/dL Calcium 7.6 L (8.4-10.2) mg/dL Total Bilirubin 2.1 H (0.2-1.3) mg/dL AST 548 H (14-36) U/L ALT 399 H (4-34) U/L Alkaline Phosphatase 569 H (38-126) U/L Total Protein 5.2 L (6.3-8.2) g/dL Albumin 2.1 L (3.5-5.0) g/dL Mycoplasma pneumon IgG 2.33 H (<=0.90) INDEX Microbiology - Last 24 Hours (Table) 02/13/24 13:30 Blood Culture - Preliminary Blood 02/15/24 14:08 Acid Fast Bacilli Smear - Preliminary Bronchoalviolar Lavage - Left 02/15/24 14:08 Gram Stain - Preliminary Bronchoalviolar Lavage - Left Bronchial Washings Culture - Preliminary Objective - Vital Signs Vital signs: Vital Signs Temp 98.2 F 02/18/24 07:40 Pulse 110 H 02/18/24 07:40 Resp 18 02/18/24 07:40 BP 111/75 02/18/24 07:40 Pulse Ox 92 L 02/18/24 08:34 FiO2 Intake & Output 02/17/24 02/18/24 02/18/24 18:59 06:59 18:59 Intake Total 1620 Balance 1620 Intake: Oral 1620 Other: # Voids 2 2 1 - Labs CBC & Chem 7: 02/18/24 03:36 02/18/24 03:36 Labs: Abnormal Lab Results - Last 24 Hours (Table) 02/17/24 02/18/24 02/18/24 Range/Units 02:27 03:36 03:36 RBC 3.15 L (4.10-5.20) X 10*6/uL Hgb 10.0 L (12.0-15.0) g/dL Hct 29.7 L (37.2-46.3) % RDW 14.6 H (11.5-14.5) % Immature Gran # 0.22 H (0.00-0.04) X 10*3/uL Eosinophils # 0.03 L (0.04-0.35) X 10*3/uL PT (9.9-11.9) sec INR (0.93-1.11) sec Sodium 131 L (137-145) mmol/L Potassium 3.4 L (3.5-5.1) mmol/L Glucose 102 H (74-99) mg/dL Calcium 7.4 L (8.4-10.2) mg/dL Total Bilirubin 2.3 H (0.2-1.3) mg/dL AST 561 H (14-36) U/L ALT 405 H (4-34) U/L Alkaline Phosphatase 591 H (38-126) U/L Total Protein 5.5 L (6.3-8.2) g/dL Albumin 2.2 L (3.5-5.0) g/dL 02/18/24 Range/Units 03:36 RBC (4.10-5.20) X 10*6/uL Hgb (12.0-15.0) g/dL Hct (37.2-46.3) % RDW (11.5-14.5) % Immature Gran # (0.00-0.04) X 10*3/uL Eosinophils # (0.04-0.35) X 10*3/uL PT 15.7 H (9.9-11.9) sec INR 1.49 H (0.93-1.11) sec Sodium (137-145) mmol/L Potassium (3.5-5.1) mmol/L Glucose (74-99) mg/dL Calcium (8.4-10.2) mg/dL Total Bilirubin (0.2-1.3) mg/dL AST (14-36) U/L ALT (4-34) U/L Alkaline Phosphatase (38-126) U/L Total Protein (6.3-8.2) g/dL Albumin (3.5-5.0) g/dL Microbiology - Last 24 Hours (Table) 02/16/24 09:38 Nasal Screen MRSA/MSSA - Final Nasopharyngeal Swab 02/15/24 14:08 Gram Stain - Final Bronchoalviolar Lavage - Left Bronchial Washings Culture - Final
[2024-02-18] MEDS ORDERED: SULFAMETHOX TMP IVPB SCH (11:00)
[2024-02-18] MEDS ORDERED: DEXTROSE 5% IVPB SCH (11:00)
[2024-02-18] MEDS ORDERED: WATER IVPB SCH (11:00)
[2024-02-18] MEDS ORDERED: Potassium Replacement Protocol 1 EACH MISC MISCELLANE PRN (12:18)
[2024-02-18 12:23] LABS: Basophils # (A) 0.03 X 10*3/uL (0.00-0.10); Basophils % (A) 0.5 %; Eosinophils # (A) 0.02 X 10*3/uL (0.04-0.35); Eosinophils % (A) 0.3 %; Lymphocytes # (A) 1.53 X 10*3/uL (0.90-5.00); Monocytes # (A) 0.48 X 10*3/uL (0.20-1.00); Monocytes % (A) 7.5 %; Neutrophils # (A) 4.16 X 10*3/uL (1.80-7.70); Neutrophils % (A) 65.2 %; RBC Morphology Normal (Normal)
[2024-02-18] MEDS: POTASSIUM CHLORIDE ER 20 MEQ TAB.ER PO SCH (13:29)
[2024-02-18] MEDS: DEXTROSE 5% IVPB SCH (13:30)
[2024-02-18] MEDS: WATER IVPB SCH (13:30)
[2024-02-18] MEDS: SULFAMETHOX TMP IVPB SCH (13:30)
--- NOTE | 2024-02-18 14:42 | CT ---
EXAMINATION TYPE: CT chest wo con CT DLP: 231.8 mGycm, Automated exposure control for dose reduction was used. DATE OF EXAM: 02/18/2024 2:27 PM COMPARISON: Chest radiograph 02/18/2024, CT chest 02/13/2024 CLINICAL INDICATION:Female, 54 years old with history of pneumonia; PHH, sob, pneumonia TECHNIQUE: Multiple axial images were obtained through the chest without IV contrast. Lack of IV or o ral contrast limits evaluation of solid and hollow organ viscera. . Coronal and sagittal reformats re viewed. FINDINGS: LUNGS/ PLEURA: Moderate bilateral pleural effusions which is increased from prior CT. Development of patchy and confluent groundglass opacities within the visualized lungs. Atelectasis of the bilateral lower lobes. Calcified granuloma within the right lower lobe. No pneumothorax. Few scattered pulmonar y nodules redemonstrated with largest within the anterior left upper lobe measuring up to 1.2 cm (ser ies 205, image 20). AIRWAY: Patent and unremarkable.. HEART: Size within normal limits.Trace pericardial effusion. MEDIASTINUM: Redemonstration of mediastinal adenopathy with example including a right paratracheal ly mph node measuring up to 1.5 cm short axis (series 201, image 38). VASCULATURE: No aortic aneurysm. MUSCULOSKELETAL: No acute osseous abnormalities. No aggressive osseous lesion. SOFT TISSUES/LYMPH NODES: Unremarkable. LOWER NECK: No significant findings. UPPER ABDOMEN: Hyperdense material is identified within the distal esophagus extending into the stoma ch. IMPRESSION: 1. Increased moderate bilateral pleural effusions from prior CTA with worsening scattered and conflue nt regions of patchy groundglass pulmonary opacities which may represent pulmonary edema and/or atypi marina pneumonia. 2. Redemonstration of pulmonary nodules and mediastinal adenopathy from prior examination which raise s concern for possible malignancy. Further evaluation with PET/CT is recommended. [facility], , 02/18/2024 2:40 PM
--- NOTE | 2024-02-18 15:06 | P.PN ---
Subjective Progress Note Date: 02/18/24 Principal diagnosis: Reason for follow-up is pneumonia Patient is a 54-year-old female with a past medical history of osteoarthritis management arthritis COVID-19 in 2020, previous history of smoking presenting to the hospital for evaluation of not feeling well, patient was noted to be febrile did have a CT angiogram of the chest did shows airspace opacities lung base scattered pulmonary nodules. On today's evaluation that is 02/18/2024,the patient did have resolution of her fever however noticed to have worsening of her respiratory status and requiring more supplemental oxygen currently up to 10 L high flow nasal cannula oxygen patient denies having any worsening shortness of breath no chest pain he did have some cough but not bring up any sputum no nausea vomiting abdominal pain or diarrhea. Patient white count 6.38, creatinine 0.62 liver enzymes mildly improved today BAL cultures pending Objective - Vital Signs Vital signs: Vital Signs Temp 98.2 F 02/18/24 07:40 Pulse 110 H 02/18/24 07:40 Resp 18 02/18/24 07:40 BP 111/75 02/18/24 07:40 Pulse Ox 92 L 02/18/24 08:34 FiO2 Intake & Output 02/17/24 02/18/24 02/18/24 18:59 06:59 18:59 Intake Total 1620 Balance 1620 Intake: Oral 1620 Other: # Voids 2 2 1 - Exam GENERAL DESCRIPTION: Middle-age female lying in bed in no distress RESPIRATORY SYSTEM: Unlabored breathing , coarse breath sound at the base HEART: S1 S2 regular rate and rhythm , ABDOMEN: Soft , no tenderness EXTREMITIES: No edema feet - Labs CBC & Chem 7: 02/18/24 03:36 02/18/24 03:36 Labs: Abnormal Lab Results - Last 24 Hours (Table) 02/17/24 02/18/24 02/18/24 Range/Units 02:27 03:36 03:36 RBC 3.15 L (4.10-5.20) X 10*6/uL Hgb 10.0 L (12.0-15.0) g/dL Hct 29.7 L (37.2-46.3) % RDW 14.6 H (11.5-14.5) % Immature Gran # 0.22 H (0.00-0.04) X 10*3/uL Eosinophils # 0.03 L (0.04-0.35) X 10*3/uL PT (9.9-11.9) sec INR (0.93-1.11) sec Sodium 131 L (137-145) mmol/L Potassium 3.4 L (3.5-5.1) mmol/L Glucose 102 H (74-99) mg/dL Calcium 7.4 L (8.4-10.2) mg/dL Total Bilirubin 2.3 H (0.2-1.3) mg/dL AST 561 H (14-36) U/L ALT 405 H (4-34) U/L Alkaline Phosphatase 591 H (38-126) U/L Total Protein 5.5 L (6.3-8.2) g/dL Albumin 2.2 L (3.5-5.0) g/dL 02/18/24 Range/Units 03:36 RBC (4.10-5.20) X 10*6/uL Hgb (12.0-15.0) g/dL Hct (37.2-46.3) % RDW (11.5-14.5) % Immature Gran # (0.00-0.04) X 10*3/uL Eosinophils # (0.04-0.35) X 10*3/uL PT 15.7 H (9.9-11.9) sec INR 1.49 H (0.93-1.11) sec Sodium (137-145) mmol/L Potassium (3.5-5.1) mmol/L Glucose (74-99) mg/dL Calcium (8.4-10.2) mg/dL Total Bilirubin (0.2-1.3) mg/dL AST (14-36) U/L ALT (4-34) U/L Alkaline Phosphatase (38-126) U/L Total Protein (6.3-8.2) g/dL Albumin (3.5-5.0) g/dL Microbiology - Last 24 Hours (Table) 02/16/24 09:38 Nasal Screen MRSA/MSSA - Final Nasopharyngeal Swab 02/15/24 14:08 Gram Stain - Final Bronchoalviolar Lavage - Left Bronchial Washings Culture - Final Assessment and Plan (1) Sepsis Current Visit: Yes Status: Acute Code(s): A41.9 - SEPSIS, UNSPECIFIED ORGANISM SNOMED Code(s): 44620420 (2) Thrush Current Visit: Yes Status: Acute Code(s): B37.0 - CANDIDAL STOMATITIS SNOMED Code(s): 19308290 (3) Hepatitis Current Visit: Yes Status: Acute Code(s): K75.9 - INFLAMMATORY LIVER DISEASE, UNSPECIFIED SNOMED Code(s): 199240116 (4) Pneumonia Current Visit: Yes Status: Acute Code(s): J18.9 - PNEUMONIA, UNSPECIFIED ORGANISM SNOMED Code(s): 262638722 Plan: 1patient presented to hospital with sepsis in this patient who did have fever tachycardia meeting criteria for SIRS source likely pneumonia as seen on the CT, of the chest with a question of typical versus atypical pneumonia urine for Legionella antigen has been negative 2-patient also have elevated liver enzymes though acute hepatitis panel negative EBV IgG positive IgM is negative, gallbladder ultrasound did not show any features of cholecystitis 3- patient is status post bronchoscopy lavage and deep culture which are currently pending 4patient did have resolution of her fever however worsening respiratory status requiring more supplemental oxygen care has been discussed in detail with the pulmonary this morning antibiotics has been adjusted to Levaquin Bactrim DS and voriconazole pending fungal and PCP stains as well as culture care discussed in detail with the and sister at the bedside Dictation was produced using [employer] dictation software. please excuse any grammatical, word or spelling errors.
[2024-02-18] MEDS: FUROSEMIDE 10 MG/ML 2 ML VIAL IV ONE (15:38)
--- NOTE | 2024-02-18 17:54 | P.PN ---
Subjective Progress Note Date: 02/18/24 Patient is a 54-year-old female with past medical history significant for rheumatoid arthritis. She does take Simponi and methotrexate on outpatient basis. Primary care provider is Dr. Sneha King. Presents with a chief complaint of weakness and lethargy that started on Wednesday, first noticed at a fo otball game. She is also had intermittent chills and diaphoresis. Appetite has been poor. No nausea or vomiting or other GI manifestations. She denies any recent travel or sick contacts. She denies any shortness of breath, cough, chest pain, hemoptysis. On arrival to the emergency department she did have a high temperature with a Tmax of 103.5 F. Chest CTA protocol was ordered due to an elevated D-dimer. Did not show evidence of pulmonary embolism. Scattered bilateral pulmonary nodules with the largest in the left upper lobe measuring 1.3 x 1.1 cm. Groundglass halo sign around the solid pulmonary nodule in the left upper lobe apex. Multiple other sub-centimeter pulmonary nodules. Prominent bilateral mediastinal and hilar lymphadenopathy noted. There are scattered airspace opacities in the lung bases left greater than right. No history of malignancy. No significant weight loss. CBC: WBC count 6.4, hemoglobin 13.5, hematocrit 39.5, platelets 144. CMP: Sodium 129, potassium 3.8, chloride 92, serum bicarb 29, BUN 16, creatinine 0.75, glucose 126. Lactic 1. AST 782, ALT 444, ALP 431. Lipase 325. Troponins less than 0.012. NT proBNP low. Negative for influenza, RSV, COVID. Most recent vital signs: Temperature 98.4 F, heart rate 103 bpm, blood pressure 102/69 mmHg, SpO2 93% on room air. Normal saline infusing at 130 mL/h. Nontoxic appearance. 02/15/2024, clinically unchanged, continues to have some cough and some limited shortness of breath. She is currently on 2 L of oxygen nasal cannula and she has a pulse ox of 91%. Repeat chest x-ray was done this morning and there is interval worsening of the lower lobe consolidations and the patient has developed bibasilar airspace disease/infiltration. This is most consistent with pneumonia. The patient white cell count remains at 6.1, hemoglobin is 11.5 and a platelet count of 209. Electrolytes are stable. LFTs are improving and the AST has dropped down to 541, ALT is down to 460 and alkaline phosphatase at 407. JUVENTINO was negative. The PE and the c-ANCA were both negative. The Legionella urine antigen was negative. The ultrasound of the gallbladder was done at the time of admission and it showed no acute abnormalities. The plan is to proceed with a bronchoscopy and obtain a bronchoalveolar lavage regarding an ongoing pneumonia in immunocompromised patient who has been taking a combination of Simponi and methotrexate. On today's evaluation of 02/16/2024, the patient is clinically unchanged. However, the repeat chest x-ray that was done today shows worsening in the bilateral pulmonary infiltrates noted in the mid and lower lung yee bilaterally. The patient remains on 2 L of oxygen by nasal cannula. Noted a bronchoscopy was done yesterday along with a bronchial lavage. The cultures are still pending. Discussed the case with the pathology and the microbiology department. This may take another 24 to 48 hours. Meanwhile, the blood cultures have been negative. Based on the progression of the pulmonary infiltrates, I started the patient on a combination of cefepime and vancomycin. Meanwhile, the white cell count is at 6.5, hemoglobin 10.5, platelet count is at 205, electrolytes are stable. LFTs are gradually improving. The viral analysis from the bronchoalveolar lavage was essentially negative. Awaiting fungal stains, awaiting PCP stain, absolute CD4 count is 514. On 02/17/2024, the patient's overall condition is stable. She is having episode of low-grade fever with a Tmax of 100.3. Chest x-ray findings from today shows stable infiltration in the middle lung bases bilaterally. She is on oxygen and 4 L nasal cannula. Final cultures have not resulted yet. The white cell count is 6.1. Hemoglobin is 9.9. She does have abnormal LFTs with transaminitis as mentioned earlier. The bronchoalveolar lavage AFB was negative. There was no acid f fast organisms. The bacterial cultures came back negative and the patient remains on a combination of cefepime and vancomycin. On 02/18/2024, the patient had some increased respiratory difficulties in the morning. The patient became more hypoxic and she was placed on 10 L of oxygen by nasal cannula. At the same time, the patient was given a dose of Lasix which resulted in significant diuresis and the patient produced excellent urine output following that and she is currently on 8 L of oxygen nasal cannula up with a pulse ox of 85%. The white cell count is 6.3 with a hemoglobin of 10 and a platelet count of 164. INR is at 1.49. LFTs remain abnormal with a AST of 561, ALT of 405, alkaline phosphatase of 591, bilirubin of 2.3 and a BUN of 9 with a creatinine of 0.6. Potassium is at 3.4. Sodium levels at 131. A follow-up CAT scan of the chest was done today which showed development of moderate-sized bilateral pleural effusion lung base bilaterally in addition to patchy groundglass bilateral pulmonary infiltrates consistent with atypical/opportunistic pneumonia. Drug-induced pneumonitis cannot be complete excluded. There is also redemonstration of pulmonary nodules and mediastinal lymphadenopathy. I had a lengthy discussion with the pathology team. The cytology and the fungal stain and the PCP stain has not been resulted yet. The bronchial lavage showed no microbial growth. Based on that, we decided to make some antibiotic changes in collaboration with infectious disease. The patient accordingly was taken off the cefepime and vancomycin and the patient was started on a combination of Levaquin, Bactrim and voriconazole. Concern with hepatotoxicity in association with voriconazole and the LFTs will be monitored very closely. Echocardiogram was also ordered. She is currently afebrile. Objective - Vital Signs Vital signs: Vital Signs Temp 98.2 F 02/18/24 07:40 Pulse 110 H 02/18/24 07:40 Resp 18 02/18/24 07:40 BP 111/75 02/18/24 07:40 Pulse Ox 92 L 02/18/24 08:34 FiO2 Intake & Output 02/17/24 02/18/24 02/18/24 18:59 06:59 18:59 Intake Total 1620 Balance 1620 Intake: Oral 1620 Other: # Voids 2 2 1 - Exam GENERAL EXAM: Alert, 54-year-old white female, well-nourished, comfortable in no apparent distress. The patient is currently on 8 L of oxygen by nasal cannula HEAD: Normocephalic and atraumatic EYES: Normal reaction of pupils, equal size. NOSE: Clear with pink turbinates. THROAT: No erythema or exudates. NECK: No masses, no JVD. CHEST: No chest wall deformity. LUNGS: Crackles in the lung bases bilaterally CVS: S1 and S2 normal with no audible murmur, regular rhythm. No extra heart sounds ABDOMEN: No hepatosplenomegaly, active bowel sounds, no guarding or rigidity. SPINE: No scoliosis or deformity SKIN: No rashes, no cutaneous nodules CENTRAL NERVOUS SYSTEM: No focal deficits, tone is normal in all 4 extremities. EXTREMITIES: There is no peripheral edema, clubbing, or cyanosis. Peripheral pulses are intact. - Labs CBC & Chem 7: 02/18/24 03:36 02/18/24 03:36 Labs: Abnormal Lab Results - Last 24 Hours (Table) 02/18/24 02/18/24 02/18/24 Range/Units 03:36 03:36 03:36 RBC 3.15 L (4.10-5.20) X 10*6/uL Hgb 10.0 L (12.0-15.0) g/dL Hct 29.7 L (37.2-46.3) % RDW 14.6 H (11.5-14.5) % Immature Gran # 0.16 H (0.00-0.04) X 10*3/uL Eosinophils # 0.02 L (0.04-0.35) X 10*3/uL PT 15.7 H (9.9-11.9) sec INR 1.49 H (0.93-1.11) sec Sodium 131 L (137-145) mmol/L Potassium 3.4 L (3.5-5.1) mmol/L Glucose 102 H (74-99) mg/dL Calcium 7.4 L (8.4-10.2) mg/dL Total Bilirubin 2.3 H (0.2-1.3) mg/dL AST 561 H (14-36) U/L ALT 405 H (4-34) U/L Alkaline Phosphatase 591 H (38-126) U/L Total Protein 5.5 L (6.3-8.2) g/dL Albumin 2.2 L (3.5-5.0) g/dL Microbiology - Last 24 Hours (Table) 02/16/24 09:38 Nasal Screen MRSA/MSSA - Final Nasopharyngeal Swab 02/15/24 14:08 Gram Stain - Final Bronchoalviolar Lavage - Left Bronchial Washings Culture - Final Assessment and Plan Assessment: Bilateral lower lobe pneumonia with interval development of infiltration and the most recent CAT scan of the chest on 02/18/2024 showing diffuse groundglass pulmonary filtrates and additional pulmonary nodules and mediastinal lymph adenopathy and this patient is immunocompromised and the patient was taking a combination of Simponi and methotrexate on outpatient basis regarding rheumatoid arthritis. Bronchoscopy endobronchial lavage was done. The viral analysis was negative. The bacterial cultures are negative. Awaiting fungal stains, PCP stains. Acute hypoxic respiratory failure currently on 8 L of oxygen by nasal cannula Bilateral pleural effusions Multiple bilateral scattered pulmonary nodules, associated mediastinal/hilar lymphadenopathy, and minimal bibasilar airspace disease, greater on the left; concerning for possible infectious process. Underlying rheumatoid lung disease not excluded. Metastatic disease is also not excluded although this is felt to be less likely. Acute febrile illness, currently afebrile Rheumatoid arthritis, maintained on methotrexate and Simponi on outpatient basis Transaminitis; Gallbladder ultrasound unremarkable; possibly secondary to liver toxicity from RA meds, LFTs are improving Former tobacco smoker, entirely 3 years ago, prior to that smoked approximately 1 pack/week on and off Former tobacco smoker Plan: Titrate oxygen flow to maintain saturation above 90%, currently on 8 L Antibiotic coverage was modified to include a combination of Bactrim, Levaquin and voriconazole Close monitoring of the LFTs Awaiting the cytology from the bronchial lavage Legionella urine antigen is negative Awaiting fungal stains and PCP stains from the bronchoalveolar lavage Will add IV Solu-Medrol IV Lasix 40 mg every 24 hours Obtain echocardiogram The fungal screen/titers were sent and the titers are pending LFTs are improving and the patient is currently off methotrexate and Simponi as both drugs can cause toxicity hepatic reactions including acute liver failure.. Will stop methotrexate and Simponi. Will treat the pneumonia. Will need obviously a follow-up CAT scan of the chest within the next 3 to 4 months to assess progression of the pulmonary nodules and the mediastinal lymph nodes. Repeat chest x-ray in the morning I will continue to follow
--- NOTE | 2024-02-19 07:43 | XR ---
2 view chest HISTORY: Pneumonia follow-up COMPARISON: 02/18/2024. TECHNIQUE: PA and lateral views chest obtained. FINDINGS: There are persistent small effusions and bibasilar infiltrates, left greater than right. The intersti tial process involving the mid and lower lung zones has decreased in the interval. The heart size is normal and the pulmonary vasculature does not appear congested. The osseous structures are intact. There is no pneumothorax. IMPRESSION: Interval improvement in the bilateral cardiothymic processes described above. Bibasilar infiltrates a nd small effusions persist, left greater than right. [facility], , 02/19/2024 7:40 AM
--- NOTE | 2024-02-19 08:22 | CA ---
Transthoracic Echo Report Name: Natty Rosales Age: 54 Gender: F : 1970 Exam Date: 02/18/2024 15:58 Exam Location: [place] Ht (in): 68 Wt (lb): 145 Ordering Physician: Jacqui Siddiqui MD Attending/Referring Phys: [employer] Specialist Procedure CPT: Indications: dyspnea, pleural effusion Cardiac Hx: Technical Quality: Good Contrast 1: Total Dose (mL): Contrast 2: Total Dose (mL): MEASUREMENTS (Male / Female) Normal Values 2D ECHO LV Diastolic Diameter PLAX 4.8 cm 4.2 - 5.9 / 3.9 - 5.3 cm LV Systolic Diameter PLAX 4.0 cm IVS Diastolic Thickness 0.8 cm 0.6 - 1.0 / 0.6 - 0.9 cm LVPW Diastolic Thickness 1.0 cm 0.6 - 1.0 / 0.6 - 0.9 cm LV Relative Wall Thickness 0.4 LVOT Diameter 2.2 cm LV Diastolic Volume MOD BP 107.1 cm??? 67 - 155 / 56 - 104 cm??? LV Systolic Volume MOD BP 59.2 cm??? 22 - 58 / 19 - 49 cm??? LV Ejection Fraction MOD BP 44.7 % >= 55 % LV Cardiac Index MOD BP 2481.3 cm???/min???m??? LV Diastolic Volume MOD 4C 107.8 cm??? LV Systolic Volume MOD 4C 58.4 cm??? LV Ejection Fraction MOD 4C 45.9 % LV Cardiac Index MOD 4C 2559.9 cm???/min???m??? LV Diastolic Length 4C 7.4 cm LV Systolic Length 4C 6.7 cm LV Diastolic Volume MOD 2C 102.6 cm??? LV Systolic Volume MOD 2C 58.6 cm??? LV Ejection Fraction MOD 2C 42.9 % LV Cardiac Index MOD 2C 2276.6 cm???/min???m??? LV Diastolic Length 2C 7.7 cm LV Systolic Length 2C 6.5 cm LA Volume 33.0 cm??? 18 - 58 / 22 - 52 cm??? LA Volume Index 18.6 cm???/m??? 16 - 28 cm???/m??? M-MODE LV Diastolic Diameter MM 6.2 cm 4.2 - 5.9 / 3.9 - 5.3 cm LV Systolic Diameter MM 4.7 cm LV Cardiac Index MM Teich 4693.1 cm???/min???m??? IVS Diastolic Thickness MM 0.9 cm 0.6 - 1.0 / 0.6 - 0.9 cm LVPW Diastolic Thickness MM 0.9 cm 0.6 - 1.0 / 0.6 - 0.9 cm LV Relative Wall Thickness MM 0.3 0.24 - 0.42 / 0.22 - 0.42 LV Mass Index MM 129.3 g/m??? 49 - 115 / 43 - 95 g/m??? DOPPLER AV Peak Velocity 121.3 cm/s AV Peak Gradient 5.9 mmHg AV Mean Velocity 93.3 cm/s AV Mean Gradient 3.7 mmHg AV Velocity Time Integral 23.3 cm LVOT Peak Velocity 108.2 cm/s LVOT Peak Gradient 4.7 mmHg LVOT Velocity Time Integral 20.4 cm LVOT Stroke Volume 77.6 cm??? LVOT Stroke Volume Index 43.5 ml/m??? LVOT Cardiac Index 4016.8 cm???/min???m??? AV Area Cont Eq vti 3.3 cm??? AV Area Cont Eq pk 3.4 cm??? MV Area PHT 6.2 cm??? Mitral E Point Velocity 52.2 cm/s Mitral A Point Velocity 49.9 cm/s Mitral E to A Ratio 1.0 MV Deceleration Time 122.6 ms PV Peak Velocity 80.8 cm/s PV Peak Gradient 2.6 mmHg FINDINGS Left Ventricle Left ventricular ejection fraction is estimated at 45-50 %.left ventricular cavity size normal. Mildly reduced global left ventricular systolic function. Right Ventricle Normal right ventricular size and function. Unable to estimate the right ventricular systolic pressure. Right Atrium Normal right atrial size. Left Atrium Normal left atrial size. Mitral Valve Structurally normal mitral valve. No evidence for mitral valve prolapse. No mitral stenosis. Mild mitral regurgitation. Aortic Valve Aortic valve not well visualized. No aortic valve stenosis or regurgitation. Tricuspid Valve Structurally normal tricuspid valve. No tricuspid stenosis. No tricuspid regurgitation. Pulmonic Valve Pulmonic valve not well visualized. No pulmonic stenosis. No pulmonic regurgitation. Pericardium No pericardial effusion. Left pleural effusion. Aorta Aortic annulus normal. CONCLUSIONS 1. Mild global hypokinesis of the left ventricle 2. Mild mitral regurgitation 3. Pleural effusion noted Previewed by: Dr. Gaurang Coombs MD (Electronically Signed) Final Date: 19 February 2024 08:20
[2024-02-19 09:41] LABS: Blood Urea Nitrogen 9.8 mg/dL (9.0-27.0); Chloride 99 mmol/L (96-109); Glucose 192 mg/dL (70-110); Potassium 3.5 mmol/L (3.5-5.5); Sodium 136 mmol/L (135-145)
[2024-02-19 09:42] LABS: ALT 345 U/L (8-44); AST 277 U/L (13-35); Albumin 2.4 g/dL (3.8-4.9); Albumin/Globulin Ratio 0.77 Ratio (1.60-3.17); Alkaline Phosphatase 538 U/L (41-126); Calcium 7.8 mg/dL (8.7-10.3); Carbon Dioxide 27.3 mmol/L (21.6-31.8); Globulin 3.1 g/dL (1.6-3.3); Total Bilirubin 1.3 mg/dL (0.3-1.2); Total Protein 5.5 g/dL (6.2-8.2)
[2024-02-19] MEDS ORDERED: VANCOMYCIN TROUGH DUE 1 EACH MISC MISCELLANE ONE (10:00)
[2024-02-19 11:17] VITALS: BMI 22.0
--- NOTE | 2024-02-19 15:14 | P.PN ---
Subjective Progress Note Date: 02/19/24 Patient is a 54-year-old female with past medical history significant for rheumatoid arthritis. She does take Simponi and methotrexate on outpatient basis. Primary care provider is Dr. Sneha King. Presents with a chief complaint of weakness and lethargy that started on Wednesday, first noticed at a fo otball game. She is also had intermittent chills and diaphoresis. Appetite has been poor. No nausea or vomiting or other GI manifestations. She denies any recent travel or sick contacts. She denies any shortness of breath, cough, chest pain, hemoptysis. On arrival to the emergency department she did have a high temperature with a Tmax of 103.5 F. Chest CTA protocol was ordered due to an elevated D-dimer. Did not show evidence of pulmonary embolism. Scattered bilateral pulmonary nodules with the largest in the left upper lobe measuring 1.3 x 1.1 cm. Groundglass halo sign around the solid pulmonary nodule in the left upper lobe apex. Multiple other sub-centimeter pulmonary nodules. Prominent bilateral mediastinal and hilar lymphadenopathy noted. There are scattered airspace opacities in the lung bases left greater than right. No history of malignancy. No significant weight loss. CBC: WBC count 6.4, hemoglobin 13.5, hematocrit 39.5, platelets 144. CMP: Sodium 129, potassium 3.8, chloride 92, serum bicarb 29, BUN 16, creatinine 0.75, glucose 126. Lactic 1. AST 782, ALT 444, ALP 431. Lipase 325. Troponins less than 0.012. NT proBNP low. Negative for influenza, RSV, COVID. Most recent vital signs: Temperature 98.4 F, heart rate 103 bpm, blood pressure 102/69 mmHg, SpO2 93% on room air. Normal saline infusing at 130 mL/h. Nontoxic appearance. 02/15/2024, clinically unchanged, continues to have some cough and some limited shortness of breath. She is currently on 2 L of oxygen nasal cannula and she has a pulse ox of 91%. Repeat chest x-ray was done this morning and there is interval worsening of the lower lobe consolidations and the patient has developed bibasilar airspace disease/infiltration. This is most consistent with pneumonia. The patient white cell count remains at 6.1, hemoglobin is 11.5 and a platelet count of 209. Electrolytes are stable. LFTs are improving and the AST has dropped down to 541, ALT is down to 460 and alkaline phosphatase at 407. JUVENTINO was negative. The PE and the c-ANCA were both negative. The Legionella urine antigen was negative. The ultrasound of the gallbladder was done at the time of admission and it showed no acute abnormalities. The plan is to proceed with a bronchoscopy and obtain a bronchoalveolar lavage regarding an ongoing pneumonia in immunocompromised patient who has been taking a combination of Simponi and methotrexate. On today's evaluation of 02/16/2024, the patient is clinically unchanged. However, the repeat chest x-ray that was done today shows worsening in the bilateral pulmonary infiltrates noted in the mid and lower lung yee bilaterally. The patient remains on 2 L of oxygen by nasal cannula. Noted a bronchoscopy was done yesterday along with a bronchial lavage. The cultures are still pending. Discussed the case with the pathology and the microbiology department. This may take another 24 to 48 hours. Meanwhile, the blood cultures have been negative. Based on the progression of the pulmonary infiltrates, I started the patient on a combination of cefepime and vancomycin. Meanwhile, the white cell count is at 6.5, hemoglobin 10.5, platelet count is at 205, electrolytes are stable. LFTs are gradually improving. The viral analysis from the bronchoalveolar lavage was essentially negative. Awaiting fungal stains, awaiting PCP stain, absolute CD4 count is 514. On 02/17/2024, the patient's overall condition is stable. She is having episode of low-grade fever with a Tmax of 100.3. Chest x-ray findings from today shows stable infiltration in the middle lung bases bilaterally. She is on oxygen and 4 L nasal cannula. Final cultures have not resulted yet. The white cell count is 6.1. Hemoglobin is 9.9. She does have abnormal LFTs with transaminitis as mentioned earlier. The bronchoalveolar lavage AFB was negative. There was no acid f fast organisms. The bacterial cultures came back negative and the patient remains on a combination of cefepime and vancomycin. On 02/18/2024, the patient had some increased respiratory difficulties in the morning. The patient became more hypoxic and she was placed on 10 L of oxygen by nasal cannula. At the same time, the patient was given a dose of Lasix which resulted in significant diuresis and the patient produced excellent urine output following that and she is currently on 8 L of oxygen nasal cannula up with a pulse ox of 85%. The white cell count is 6.3 with a hemoglobin of 10 and a platelet count of 164. INR is at 1.49. LFTs remain abnormal with a AST of 561, ALT of 405, alkaline phosphatase of 591, bilirubin of 2.3 and a BUN of 9 with a creatinine of 0.6. Potassium is at 3.4. Sodium levels at 131. A follow-up CAT scan of the chest was done today which showed development of moderate-sized bilateral pleural effusion lung base bilaterally in addition to patchy groundglass bilateral pulmonary infiltrates consistent with atypical/opportunistic pneumonia. Drug-induced pneumonitis cannot be complete excluded. There is also redemonstration of pulmonary nodules and mediastinal lymphadenopathy. I had a lengthy discussion with the pathology team. The cytology and the fungal stain and the PCP stain has not been resulted yet. The bronchial lavage showed no microbial growth. Based on that, we decided to make some antibiotic changes in collaboration with infectious disease. The patient accordingly was taken off the cefepime and vancomycin and the patient was started on a combination of Levaquin, Bactrim and voriconazole. Concern with hepatotoxicity in association with voriconazole and the LFTs will be monitored very closely. Echocardiogram was also ordered. She is currently afebrile. On 02/19/2024, the patient is being seen for a follow-up. Clinically unchanged compared to yesterday. No interval worsening shortness of breath. She is currently on 10 L of oxygen high flow with a pulse ox of 93%. Repeat chest x- ray was done today and the findings are essentially stable, probably some slight improvement in the basilar pulmonary filtrates and the patient continues to have bilateral pleural effusion. Echocardiogram was essentially within normal limits. Labs show a disturbed LFTs with an AST of 277, ALT of 345 and an alkaline phosphatase of 538. LDH was 626. Patient remains currently on a combination of voriconazole, Bactrim and Levaquin. She is also on IV Solu- Medrol. Afebrile. Denies having any specific complaints. She is also being diuresed with IV Lasix 40 mg subcu 24 hours. Fluid balance has been negative. Objective - Vital Signs Vital signs: Vital Signs Temp 97.8 F 02/19/24 07:45 Pulse 78 02/19/24 09:15 Resp 18 02/19/24 09:15 BP 109/78 11/30/24 07:45 Pulse Ox 93 L 02/19/24 07:45 FiO2 Intake & Output 02/18/24 02/19/24 02/19/24 18:59 06:59 18:59 Intake Total 750 Balance 750 Weight 65.771 kg Intake: Intake, IV Titration 750 Amount Levofloxacin 750Mg-D5w 150 Pmx 750 mg In Dextrose/ Water 1 150ml.bag @ 100 mls/hr IVPB Q24H [facility] Rx#: [id number] Sulfamethox-Tmp 80-16Mg/ 500 ml 336 mg In Dextrose 5% in Water 500 ml @ 347.333 mls/hr IVPB Q8H [facility] Rx#: [id number] Voriconazole 100 mg In 100 Sodium Chloride 0.9% 100 ml @ 100 mls/hr IVPB Q12H [facility] Rx#:[id number] Other: Voiding Method Bedside Commode Bedside Commode # Voids 1 2 - Exam GENERAL EXAM: Alert, 54-year-old white female, well-nourished, comfortable in no apparent distress. The patient is currently on 8 L of oxygen by nasal cannula HEAD: Normocephalic and atraumatic EYES: Normal reaction of pupils, equal size. NOSE: Clear with pink turbinates. THROAT: No erythema or exudates. NECK: No masses, no JVD. CHEST: No chest wall deformity. LUNGS: Crackles in the lung bases bilaterally CVS: S1 and S2 normal with no audible murmur, regular rhythm. No extra heart sounds ABDOMEN: No hepatosplenomegaly, active bowel sounds, no guarding or rigidity. SPINE: No scoliosis or deformity SKIN: No rashes, no cutaneous nodules CENTRAL NERVOUS SYSTEM: No focal deficits, tone is normal in all 4 extremities. EXTREMITIES: There is no peripheral edema, clubbing, or cyanosis. Peripheral pulses are intact. - Labs CBC & Chem 7: 02/18/24 03:36 02/19/24 02:56 Labs: Abnormal Lab Results - Last 24 Hours (Table) 02/18/24 02/19/24 Range/Units 03:36 02:56 Immature Gran # 0.16 H (0.00-0.04) X 10*3/uL Eosinophils # 0.02 L (0.04-0.35) X 10*3/uL Creatinine 0.5 L (0.6-1.5) mg/dL Glucose 192 H (70-110) mg/dL Calcium 7.8 L (8.7-10.3) mg/dL Total Bilirubin 1.3 H (0.3-1.2) mg/dL AST 277 H (13-35) U/L ALT 345 H (8-44) U/L Alkaline Phosphatase 538 H (41-126) U/L Total Protein 5.5 L (6.2-8.2) g/dL Albumin 2.4 L (3.8-4.9) g/dL Albumin/Globulin Ratio 0.77 L (1.60-3.17) Ratio Microbiology - Last 24 Hours (Table) 02/13/24 13:30 Blood Culture - Final Blood 02/15/24 14:08 Legionella Culture - Preliminary Bronchial Washings - Left 02/16/24 09:38 Nasal Screen MRSA/MSSA - Final Nasopharyngeal Swab Assessment and Plan Assessment: Bilateral lower lobe pneumonia with interval development of infiltration and the most recent CAT scan of the chest on 02/18/2024 showing diffuse groundglass pulmonary filtrates and additional pulmonary nodules and mediastinal lymphadenopathy and this patient is immunocompromised and the patient was taking a combination of Simponi and methotrexate on outpatient basis regarding rheumatoid arthritis. Bronchoscopy bronchoalveolar lavage was done. The viral analysis was negative. The bacterial cultures are negative. Awaiting fungal stains, PCP stains. LDH is elevated. Chest x-ray findings are stable from today Acute hypoxic respiratory failure currently on 10 L of oxygen by nasal cannula Bilateral pleural effusions Multiple bilateral scattered pulmonary nodules, associated mediastinal/hilar lymphadenopathy, and minimal bibasilar airspace disease, greater on the left; concerning for possible infectious process. Underlying rheumatoid lung disease not excluded. Metastatic disease is also not excluded although this is felt to be less likely. Acute febrile illness, currently afebrile Rheumatoid arthritis, maintained on methotrexate and Simponi on outpatient basis Transaminitis; Gallbladder ultrasound unremarkable; possibly secondary to liver toxicity from RA meds, LFTs are improving Former tobacco smoker, entirely 3 years ago, prior to that smoked approximately 1 pack/week on and off Former tobacco smoker Plan: Titrate oxygen flow to maintain saturation above 90%, currently on 10 L nasal cannula Antibiotic coverage was modified to include a combination of Bactrim, Levaquin and voriconazole Close monitoring of the LFTs Awaiting the cytology from the bronchial lavage Legionella urine antigen is negative Awaiting fungal stains and PCP stains from the bronchoalveolar lavage Will add IV Solu-Medrol IV Lasix 40 mg every 24 hours Echocardiogram was within normal limits The fungal screen/titers were sent and the titers are pending LFTs are improving and the patient is currently off methotrexate and Simponi as both drugs can cause toxicity hepatic reactions including acute liver failure.. Will stop methotrexate and Simponi. Will treat the pneumonia. Will need obviously a follow-up CAT scan of the chest within the next 3 to 4 months to assess progression of the pulmonary nodules and the mediastinal lymph nodes. Repeat chest x-ray in the morning I will continue to follow
--- NOTE | 2024-02-19 15:27 | P.PN ---
Subjective Progress Note Date: 02/19/24 Principal diagnosis: Reason for follow-up is pneumonia Patient is a 54-year-old female with a past medical history of osteoarthritis management arthritis COVID-19 in 2020, previous history of smoking presenting to the hospital for evaluation of not feeling well, patient was noted to be febrile did have a CT angiogram of the chest did shows airspace opacities lung base scattered pulmonary nodules. On today's evaluation that is 02/19/2024, the patient continues to be afebrile, the patient is breathing slightly comfortably and is down to 8 L nasal oxygen patient denies having any chest pain no worsening cough pain or diarrhea. Patient did have creatinine 0.5 liver enzymes slightly improved Objective - Vital Signs Vital signs: Vital Signs Temp 97.4 F L 02/19/24 14:00 Pulse 86 02/19/24 14:00 Resp 17 02/19/24 14:00 BP 104/69 02/19/24 14:00 Pulse Ox 97 02/19/24 14:00 FiO2 Intake & Output 02/18/24 02/19/24 02/19/24 18:59 06:59 18:59 Intake Total 750 Balance 750 Weight 65.771 kg Intake: Intake, IV Titration 750 Amount Levofloxacin 750Mg-D5w 150 Pmx 750 mg In Dextrose/ Water 1 150ml.bag @ 100 mls/hr IVPB Q24H [facility] Rx#: [id number] Sulfamethox-Tmp 80-16Mg/ 500 ml 336 mg In Dextrose 5% in Water 500 ml @ 347.333 mls/hr IVPB Q8H [facility] Rx#: [id number] Voriconazole 100 mg In 100 Sodium Chloride 0.9% 100 ml @ 100 mls/hr IVPB Q12H [facility] Rx#:[id number] Other: Voiding Method Bedside Commode Bedside Commode # Voids 1 2 - Exam GENERAL DESCRIPTION: Middle-age female lying in bed in no distress RESPIRATORY SYSTEM: Unlabored breathing , coarse breath sound at the base HEART: S1 S2 regular rate and rhythm , ABDOMEN: Soft , no tenderness EXTREMITIES: No edema feet - Labs CBC & Chem 7: 02/18/24 03:36 02/19/24 02:56 Labs: Abnormal Lab Results - Last 24 Hours (Table) 02/19/24 02/19/24 Range/Units 02:56 14:19 Creatinine 0.5 L (0.6-1.5) mg/dL Glucose 192 H (70-110) mg/dL Calcium 7.8 L (8.7-10.3) mg/dL Total Bilirubin 1.3 H (0.3-1.2) mg/dL AST 277 H (13-35) U/L ALT 345 H (8-44) U/L Alkaline Phosphatase 538 H (41-126) U/L Lactate Dehydrogenase 626 H (120-246) U/L Total Protein 5.5 L (6.2-8.2) g/dL Albumin 2.4 L (3.8-4.9) g/dL Albumin/Globulin Ratio 0.77 L (1.60-3.17) Ratio Microbiology - Last 24 Hours (Table) 02/13/24 13:30 Blood Culture - Final Blood 02/15/24 14:08 Legionella Culture - Preliminary Bronchial Washings - Left Assessment and Plan (1) Sepsis Current Visit: Yes Status: Acute Code(s): A41.9 - SEPSIS, UNSPECIFIED ORGANISM SNOMED Code(s): 35363871 (2) Thrush Current Visit: Yes Status: Acute Code(s): B37.0 - CANDIDAL STOMATITIS SNOMED Code(s): 30387138 (3) Hepatitis Current Visit: Yes Status: Acute Code(s): K75.9 - INFLAMMATORY LIVER DISEASE, UNSPECIFIED SNOMED Code(s): 517356785 (4) Pneumonia Current Visit: Yes Status: Acute Code(s): J18.9 - PNEUMONIA, UNSPECIFIED ORGANISM SNOMED Code(s): 789250085 Plan: 1patient presented to hospital with sepsis in this patient who did have fever tachycardia meeting criteria for SIRS source likely pneumonia as seen on the CT, of the chest with a question of typical versus atypical pneumonia urine for Legionella antigen has been negative 2-patient also have elevated liver enzymes though acute hepatitis panel negative EBV IgG positive IgM is negative, gallbladder ultrasound did not show any features of cholecystitis 3- patient is status post bronchoscopy lavage and deep culture which are currently pending 4patient did have resolution of her fever however worsening respiratory status requiring more supplemental oxygen for the patient antibiotics has been adjusted to Levaquin Bactrim DS and voriconazole as of 02/18/2024, still waiting for the fungal and PCP stains, however keeping in mind slight improvement compared yesterday will be continued on current antibiotics while waiting for the workup to be completed Dictation was produced using [employer] dictation software. please excuse any grammatical, word or spelling errors. Time with Patient: Less than 30
--- NOTE | 2024-02-19 15:53 | P.PN ---
Subjective Progress Note Date: 02/19/24 (delayed charting seen at 1230) Patient is a 54-year-old female with known rheumatoid arthritis presenting after acute COVID-19 infection 2 years ago treated with methotrexate and Simponi who presented with generalized weakness. Found to have interstitial pneumonia, cardiomyopathy, acute hepatitis, anemia, and mediastinal lymphadenopathy. Developed acute hypoxic respiratory failure with max O2 supplementation at 10 L high flow, acute hepatitis with max AST of 1186 and max ALT of 600. Bilirubin maxed at 2.3. Initially treated with ceftriaxone and vancomycin and subsequently switched to Bactrim to cover PCP prophylaxis, Levaquin for possible legionnaires disease, and voriconazole for possible fungal pneumonia. Acute hepatitis panel was negative, COVID, flu, enterovirus, rhinovirus, p arainfluenza, EBV, and HSV were negative. HIV negative, heterophile antibody negative, Legionella urine antigen and mycoplasma IgM were negative. MRSA nasal screen negative, initial AFB negative. Blood and urine cultures were negative. Fevers regressed after 2 days. Started on high-dose steroids on 02/17. Recently started on some pony 3 months ago and has been on methotrexate for 2 years. Patient seen and examined at bedside. Feeling much improved today. Breathing is better. Weakness is better. Eating more. Vital signs reviewed General: Nontoxic, no distress, appears at stated age Cardiovascular: S1S2 reg, no murmur Lungs: Rhonchi bilateral, no accessory muscle use Abdominal: Soft, nontender to palpation, no guarding Ext: No gross muscle atrophy, no edema b/l lower extremities, no contractures Neuro: CN II-XI grossly intact, no focal neuro deficits Psych: Alert, oriented, appropriate affect Assessment/Plan: Acute hypoxic respiratory failure Acute interstitial pneumonia with sepsis Cardiomyopathy with EF 45 to 50% global hypokinesis Acute hepatitis Anemia Thrombocytopenia, resolved Rheumatoid arthritis on immunosuppression with methotrexate and Simponi -Continue with Levaquin IV, voriconazole IV, and Bactrim IV -Infectious disease and pulmonary recommendations appreciated Methylprednisolone 60 mg IV every 6 hours -Lasix 40 mg IV daily -Check LDH -Await alpha 1 antitrypsin, histoplasma AG -Check ESR and CRP -Suggest contacting rheumatology on 02/20 -Await BAL results - check liver US Imaging: Chest x-rays reviewed by me self shows continued bibasilar infiltrates with small pleural effusion Data Review: Labs reviewed today include CMP which is remarkable for bilirubin of 1.3, AST 277, ALT 345 DVT prophylaxis: Heparin Anticipated discharge date: Pending clinical course Anticipated discharge place: Pending clinical course This dictation was prepared using [employer] voice recognition software. Though every attempt is made to correct errors during dictation some may still exist. Objective - Vital Signs Vital signs: Vital Signs Temp 97.4 F L 02/19/24 14:00 Pulse 86 02/19/24 14:00 Resp 17 02/19/24 14:00 BP 104/69 02/19/24 14:00 Pulse Ox 97 02/19/24 14:00 FiO2 Intake & Output 02/18/24 02/19/24 02/19/24 18:59 06:59 18:59 Intake Total 750 Balance 750 Weight 65.771 kg Intake: Intake, IV Titration 750 Amount Levofloxacin 750Mg-D5w 150 Pmx 750 mg In Dextrose/ Water 1 150ml.bag @ 100 mls/hr IVPB Q24H [facility] Rx#: [id number] Sulfamethox-Tmp 80-16Mg/ 500 ml 336 mg In Dextrose 5% in Water 500 ml @ 347.333 mls/hr IVPB Q8H [facility] Rx#: [id number] Voriconazole 100 mg In 100 Sodium Chloride 0.9% 100 ml @ 100 mls/hr IVPB Q12H [facility] Rx#:[id number] Other: Voiding Method Bedside Commode Bedside Commode # Voids 1 2 - Labs CBC & Chem 7: 02/18/24 03:36 02/19/24 02:56 Labs: Abnormal Lab Results - Last 24 Hours (Table) 02/19/24 02/19/24 Range/Units 02:56 14:19 Creatinine 0.5 L (0.6-1.5) mg/dL Glucose 192 H (70-110) mg/dL Calcium 7.8 L (8.7-10.3) mg/dL Total Bilirubin 1.3 H (0.3-1.2) mg/dL AST 277 H (13-35) U/L ALT 345 H (8-44) U/L Alkaline Phosphatase 538 H (41-126) U/L Lactate Dehydrogenase 626 H (120-246) U/L Total Protein 5.5 L (6.2-8.2) g/dL Albumin 2.4 L (3.8-4.9) g/dL Albumin/Globulin Ratio 0.77 L (1.60-3.17) Ratio Microbiology - Last 24 Hours (Table) 02/13/24 13:30 Blood Culture - Final Blood 02/15/24 14:08 Legionella Culture - Preliminary Bronchial Washings - Left
[2024-02-20 08:59] LABS: HCT 28.4 % (37.2-46.3); HGB 9.7 g/dL (12.0-15.0); MCH 32.6 pg (27.0-32.0); MCHC 34.2 g/dL (32.0-37.0); MCV 95.3 FL (80.0-97.0); Mean Platelet Volume 12.3 FL (9.5-12.2); NRBC Per 100 WBC 0 X 10*3/uL (0.00-0.01); Platelet Count 205 X 10*3/uL (140-440); RBC 2.98 X 10*6/uL (4.10-5.20); RDW 14.8 % (11.5-14.5)
[2024-02-20 09:22] LABS: Blood Urea Nitrogen 11.7 mg/dL (9.0-27.0); Carbon Dioxide 29.3 mmol/L (21.6-31.8); Chloride 100 mmol/L (96-109); Glucose 193 mg/dL (70-110); Potassium 3.7 mmol/L (3.5-5.5); Sodium 139 mmol/L (135-145)
[2024-02-20 09:23] LABS: ALT 311 U/L (8-44); AST 237 U/L (13-35); Albumin 2.6 g/dL (3.8-4.9); Albumin/Globulin Ratio 0.81 Ratio (1.60-3.17); Alkaline Phosphatase 570 U/L (41-126); Calcium 8.3 mg/dL (8.7-10.3); Globulin 3.2 g/dL (1.6-3.3); Total Bilirubin 0.9 mg/dL (0.3-1.2); Total Protein 5.8 g/dL (6.2-8.2)
--- NOTE | 2024-02-20 09:38 | US ---
EXAMINATION TYPE: US abdomen complete DATE OF EXAM: 02/20/2024 Exam done portable COMPARISON: US 2023 CLINICAL INDICATION: Female, 54 years old with history of kiarra Chiari; TECHNIQUE: Grayscale and color Doppler imaging of the abdomen was performed. FINDINGS: EXAM MEASUREMENTS: Liver Length: 16.1 cm Gallbladder Wall: 0.2 cm CBD: 0.3 cm Spleen: 11.3 cm Right Kidney: 11.2 x 4.9 x 5.5 cm Left Kidney: 10.3 x 4.6 x 4.7 cm Pancreas: wnl Liver: wnl Gallbladder: wnl Evidence for sonographic Wu's sign: no CBD: wnl Spleen: wnl Right Kidney: wnl Left Kidney: visualized portions wnl, inferior pole limited by overlying bowel gas Upper IVC: wnl Abd Aorta: wnl There is a left pleural effusion. The liver is homogenous. The intrahepatic portion of the IVC and proximal abdominal aorta are within normal limits. There is no evidence of cholelithiasis. Common bile duct is unremarkable. The visu alized portions of the pancreas are homogenous. The spleen is unremarkable. Kidneys are symmetric a nd free of hydronephrosis. No renal lesions are seen. IMPRESSION: Left pleural effusion with no other significant abnormality seen. [facility], , 02/20/2024 9:36 AM
[2024-02-20 10:23] LABS: Erythrocyte Sedimentation Rate 11 mm/Hr (0-30)
--- NOTE | 2024-02-20 11:01 | XR ---
EXAMINATION TYPE: XR chest 1V portable DATE OF EXAM: 02/20/2024 COMPARISON: 02/19/2024 CLINICAL INDICATION: Female, 54 years old with history of pneumonia; TECHNIQUE: Single frontal view of the chest is obtained. FINDINGS: There is increasing moderate left pleural effusion. There is a probable underlying left lower lobe in filtrate. There is a worsening partially consolidative opacity in the right lung base. The heart size normal. Pulmonary vasculature is not congested. There is no pneumothorax. The osseous structures are intact IMPRESSION: Mild basilar acute cardiopulmonary disease with interval worsening as described above. [facility], , 02/20/2024 10:59 AM
[2024-02-20 13:37] LABS: INR 1.19 sec (0.93-1.11); Prothrombin Time 12.7 sec (9.9-11.9)
--- NOTE | 2024-02-20 13:41 | P.PN ---
Subjective Progress Note Date: 02/20/24 Principal diagnosis: Reason for follow-up is pneumonia Patient is a 54-year-old female with a past medical history of osteoarthritis management arthritis COVID-19 in 2020, previous history of smoking presenting to the hospital for evaluation of not feeling well, patient was noted to be febrile did have a CT angiogram of the chest did shows airspace opacities lung base scattered pulmonary nodules. On today's evaluation that is 02/20/2024, Patient is afebrile patient is currently down to 6 L nasal cannula oxygen and breathing slightly comfortably patient denies having any chest pain no worsening cough or sputum production no nausea vomiting no abdominal pain or diarrhea. The patient white count is 10.90, creatinine 0.6 liver enzymes has slightly improved Objective - Vital Signs Vital signs: Vital Signs Temp 98.0 F 02/20/24 08:00 Pulse 86 02/20/24 08:00 Resp 17 02/20/24 08:00 BP 98/64 02/20/24 08:00 Pulse Ox 93 L 02/20/24 08:00 FiO2 Intake & Output 02/19/24 02/20/24 02/20/24 18:59 06:59 18:59 Weight 65.771 kg Other: Voiding Method Bedside Commode # Voids 4 3 # Bowel Movements 1 - Exam GENERAL DESCRIPTION: Middle-age female lying in bed in no distress RESPIRATORY SYSTEM: Unlabored breathing , coarse breath sound at the base HEART: S1 S2 regular rate and rhythm , ABDOMEN: Soft , no tenderness EXTREMITIES: No edema feet - Labs CBC & Chem 7: 02/20/24 03:39 02/20/24 03:42 Labs: Abnormal Lab Results - Last 24 Hours (Table) 02/19/24 02/20/24 02/20/24 Range/Units 14:19 03:39 03:42 WBC 10.90 H (4.50-10.00) X 10*3/uL RBC 2.98 L (4.10-5.20) X 10*6/uL Hgb 9.7 L (12.0-15.0) g/dL Hct 28.4 L (37.2-46.3) % MCH 32.6 H (27.0-32.0) pg RDW 14.8 H (11.5-14.5) % MPV 12.3 H (9.5-12.2) FL Glucose 193 H (70-110) mg/dL Calcium 8.3 L (8.7-10.3) mg/dL AST 237 H (13-35) U/L ALT 311 H (8-44) U/L Alkaline Phosphatase 570 H (41-126) U/L Lactate Dehydrogenase 626 H (120-246) U/L C-Reactive Protein 2.00 H (0.00-0.80) mg/dL Total Protein 5.8 L (6.2-8.2) g/dL Albumin 2.6 L (3.8-4.9) g/dL Albumin/Globulin Ratio 0.81 L (1.60-3.17) Ratio Assessment and Plan (1) Sepsis Current Visit: Yes Status: Acute Code(s): A41.9 - SEPSIS, UNSPECIFIED ORGANISM SNOMED Code(s): 31928319 (2) Thrush Current Visit: Yes Status: Acute Code(s): B37.0 - CANDIDAL STOMATITIS SNOMED Code(s): 80174379 (3) Hepatitis Current Visit: Yes Status: Acute Code(s): K75.9 - INFLAMMATORY LIVER DISEASE, UNSPECIFIED SNOMED Code(s): 742144143 (4) Pneumonia Current Visit: Yes Status: Acute Code(s): J18.9 - PNEUMONIA, UNSPECIFIED ORGANISM SNOMED Code(s): 062681211 Plan: 1patient presented to hospital with sepsis in this patient who did have fever tachycardia meeting criteria for SIRS source likely pneumonia as seen on the CT, of the chest with a question of typical versus atypical pneumonia urine for Legionella antigen has been negative 2-patient also have elevated liver enzymes though acute hepatitis panel negative EBV IgG positive IgM is negative, gallbladder ultrasound did not show any fea tures of cholecystitis 3- patient is status post bronchoscopy lavage and deep culture which are curr ently pending 4patient did have resolution of her fever and some improvement in her clinical condition after adjustment of antibiotic Levaquin Bactrim DS and voriconazole as of 02/18/2024, still waiting for the fungal and PCP stains, continue with the current antibiotic regime while waiting for the workup to be completed Dictation was produced using [email or web address] dictation software. please excuse any g rammatical, word or spelling errors. Time with Patient: Less than 30
--- NOTE | 2024-02-20 14:25 | P.PN ---
Subjective Progress Note Date: 02/20/24 Patient is a 54-year-old female with past medical history significant for rheumatoid arthritis. She does take Simponi and methotrexate on outpatient basis. Primary care provider is Dr. Sneha King. Presents with a chief complaint of weakness and lethargy that started on Wednesday, first noticed at a fo otball game. She is also had intermittent chills and diaphoresis. Appetite has been poor. No nausea or vomiting or other GI manifestations. She denies any recent travel or sick contacts. She denies any shortness of breath, cough, chest pain, hemoptysis. On arrival to the emergency department she did have a high temperature with a Tmax of 103.5 F. Chest CTA protocol was ordered due to an elevated D-dimer. Did not show evidence of pulmonary embolism. Scattered bilateral pulmonary nodules with the largest in the left upper lobe measuring 1.3 x 1.1 cm. Groundglass halo sign around the solid pulmonary nodule in the left upper lobe apex. Multiple other sub-centimeter pulmonary nodules. Prominent bilateral mediastinal and hilar lymphadenopathy noted. There are scattered airspace opacities in the lung bases left greater than right. No history of malignancy. No significant weight loss. CBC: WBC count 6.4, hemoglobin 13.5, hematocrit 39.5, platelets 144. CMP: Sodium 129, potassium 3.8, chloride 92, serum bicarb 29, BUN 16, creatinine 0.75, glucose 126. Lactic 1. AST 782, ALT 444, ALP 431. Lipase 325. Troponins less than 0.012. NT proBNP low. Negative for influenza, RSV, COVID. Most recent vital signs: Temperature 98.4 F, heart rate 103 bpm, blood pressure 102/69 mmHg, SpO2 93% on room air. Normal saline infusing at 130 mL/h. Nontoxic appearance. 02/15/2024, clinically unchanged, continues to have some cough and some limited shortness of breath. She is currently on 2 L of oxygen nasal cannula and she has a pulse ox of 91%. Repeat chest x-ray was done this morning and there is interval worsening of the lower lobe consolidations and the patient has developed bibasilar airspace disease/infiltration. This is most consistent with pneumonia. The patient white cell count remains at 6.1, hemoglobin is 11.5 and a platelet count of 209. Electrolytes are stable. LFTs are improving and the AST has dropped down to 541, ALT is down to 460 and alkaline phosphatase at 407. JUVENTINO was negative. The PE and the c-ANCA were both negative. The Legionella urine antigen was negative. The ultrasound of the gallbladder was done at the time of admission and it showed no acute abnormalities. The plan is to proceed with a bronchoscopy and obtain a bronchoalveolar lavage regarding an ongoing pneumonia in immunocompromised patient who has been taking a combination of Simponi and methotrexate. On today's evaluation of 02/16/2024, the patient is clinically unchanged. However, the repeat chest x-ray that was done today shows worsening in the bilateral pulmonary infiltrates noted in the mid and lower lung yee bilaterally. The patient remains on 2 L of oxygen by nasal cannula. Noted a bronchoscopy was done yesterday along with a bronchial lavage. The cultures are still pending. Discussed the case with the pathology and the microbiology department. This may take another 24 to 48 hours. Meanwhile, the blood cultures have been negative. Based on the progression of the pulmonary infiltrates, I started the patient on a combination of cefepime and vancomycin. Meanwhile, the white cell count is at 6.5, hemoglobin 10.5, platelet count is at 205, electrolytes are stable. LFTs are gradually improving. The viral analysis from the bronchoalveolar lavage was essentially negative. Awaiting fungal stains, awaiting PCP stain, absolute CD4 count is 514. On 02/17/2024, the patient's overall condition is stable. She is having episode of low-grade fever with a Tmax of 100.3. Chest x-ray findings from today shows stable infiltration in the middle lung bases bilaterally. She is on oxygen and 4 L nasal cannula. Final cultures have not resulted yet. The white cell count is 6.1. Hemoglobin is 9.9. She does have abnormal LFTs with transaminitis as mentioned earlier. The bronchoalveolar lavage AFB was negative. There was no acid f fast organisms. The bacterial cultures came back negative and the patient remains on a combination of cefepime and vancomycin. On 02/18/2024, the patient had some increased respiratory difficulties in the morning. The patient became more hypoxic and she was placed on 10 L of oxygen by nasal cannula. At the same time, the patient was given a dose of Lasix which resulted in significant diuresis and the patient produced excellent urine output following that and she is currently on 8 L of oxygen nasal cannula up with a pulse ox of 85%. The white cell count is 6.3 with a hemoglobin of 10 and a platelet count of 164. INR is at 1.49. LFTs remain abnormal with a AST of 561, ALT of 405, alkaline phosphatase of 591, bilirubin of 2.3 and a BUN of 9 with a creatinine of 0.6. Potassium is at 3.4. Sodium levels at 131. A follow-up CAT scan of the chest was done today which showed development of moderate-sized bilateral pleural effusion lung base bilaterally in addition to patchy groundglass bilateral pulmonary infiltrates consistent with atypical/opportunistic pneumonia. Drug-induced pneumonitis cannot be complete excluded. There is also redemonstration of pulmonary nodules and mediastinal lymphadenopathy. I had a lengthy discussion with the pathology team. The cytology and the fungal stain and the PCP stain has not been resulted yet. The bronchial lavage showed no microbial growth. Based on that, we decided to make some antibiotic changes in collaboration with infectious disease. The patient accordingly was taken off the cefepime and vancomycin and the patient was started on a combination of Levaquin, Bactrim and voriconazole. Concern with hepatotoxicity in association with voriconazole and the LFTs will be monitored very closely. Echocardiogram was also ordered. She is currently afebrile. On 02/19/2024, the patient is being seen for a follow-up. Clinically unchanged compared to yesterday. No interval worsening shortness of breath. She is currently on 10 L of oxygen high flow with a pulse ox of 93%. Repeat chest x- ray was done today and the findings are essentially stable, probably some slight improvement in the basilar pulmonary filtrates and the patient continues to have bilateral pleural effusion. Echocardiogram was essentially within normal limits. Labs show a disturbed LFTs with an AST of 277, ALT of 345 and an alkaline phosphatase of 538. LDH was 626. Patient remains currently on a combination of voriconazole, Bactrim and Levaquin. She is also on IV Solu- Medrol. Afebrile. Denies having any specific complaints. She is also being diuresed with IV Lasix 40 mg subcu 24 hours. Fluid balance has been negative. On 02/20/2024, the patient is being seen for a follow-up. Feeling better compared to yesterday. Less short of breath compared to yesterday. A repeat chest x-ray was done today and shows a moderate-sized left-sided pleural effusion. Infiltrates in the right lung base seems to have improved. Remains on Levaquin, Bactrim and voriconazole. Afebrile. Pulse ox is improved and the patient is currently is down to 6 L of O2 nasal cannula. No pleurisy. No hemoptysis. The white cell count is at 10.9 with a hemoglobin 9.7 and a p latelet count of 205. INR is 1.9. LFTs have somewhat improved and AST is down to 237, ALT is down to 311, alkaline phosphatase at 570, LDH is at 626, total protein is at 5.8 with an albumin of 2.6. Procalcitonin level is at 0.31. The ultrasound of the abdomen shows a left-sided pleural effusion without any other significant abnormalities. The patient remains on IV Lasix. IV fluids are currently at KVO. Objective - Vital Signs Vital signs: Vital Signs Temp 98.0 F 02/20/24 08:00 Pulse 86 02/20/24 08:00 Resp 17 02/20/24 08:00 BP 98/64 02/20/24 08:00 Pulse Ox 93 L 02/20/24 08:00 FiO2 Intake & Output 02/19/24 02/20/24 02/20/24 18:59 06:59 18:59 Weight 65.771 kg Other: Voiding Method Bedside Commode # Voids 4 3 # Bowel Movements 1 - Exam GENERAL EXAM: Alert, 54-year-old white female, well-nourished, comfortable in no apparent distress. The patient is currently on 6 L of oxygen by nasal cannula HEAD: Normocephalic and atraumatic EYES: Normal reaction of pupils, equal size. NOSE: Clear with pink turbinates. THROAT: No erythema or exudates. NECK: No masses, no JVD. CHEST: No chest wall deformity. LUNGS: Crackles in the lung bases bilaterally CVS: S1 and S2 normal with no audible murmur, regular rhythm. No extra heart sounds ABDOMEN: No hepatosplenomegaly, active bowel sounds, no guarding or rigidity. SPINE: No scoliosis or deformity SKIN: No rashes, no cutaneous nodules CENTRAL NERVOUS SYSTEM: No focal deficits, tone is normal in all 4 extremities. EXTREMITIES: There is no peripheral edema, clubbing, or cyanosis. Peripheral pulses are intact. - Labs CBC & Chem 7: 02/20/24 03:39 02/20/24 03:42 Labs: Abnormal Lab Results - Last 24 Hours (Table) 02/19/24 02/20/24 02/20/24 Range/Units 14:19 03:39 03:42 WBC 10.90 H (4.50-10.00) X 10*3/uL RBC 2.98 L (4.10-5.20) X 10*6/uL Hgb 9.7 L (12.0-15.0) g/dL Hct 28.4 L (37.2-46.3) % MCH 32.6 H (27.0-32.0) pg RDW 14.8 H (11.5-14.5) % MPV 12.3 H (9.5-12.2) FL Glucose 193 H (70-110) mg/dL Calcium 8.3 L (8.7-10.3) mg/dL AST 237 H (13-35) U/L ALT 311 H (8-44) U/L Alkaline Phosphatase 570 H (41-126) U/L Lactate Dehydrogenase 626 H (120-246) U/L C-Reactive Protein 2.00 H (0.00-0.80) mg/dL Total Protein 5.8 L (6.2-8.2) g/dL Albumin 2.6 L (3.8-4.9) g/dL Albumin/Globulin Ratio 0.81 L (1.60-3.17) Ratio Assessment and Plan Assessment: Bilateral lower lobe pneumonia with interval development of infiltration and the most recent CAT scan of the chest on 02/18/2024 showing diffuse groundglass pulmonary filtrates and additional pulmonary nodules and mediastinal lymphadenopathy and this patient is immunocompromised and the patient was taking a combination of Simponi and methotrexate on outpatient basis regarding rheumatoid arthritis. Bronchoscopy bronchoalveolar lavage was done. The viral analysis was negative. The bacterial cultures are negative. Awaiting fungal stains, PCP stains. LDH is elevated. Chest x-ray findings from today shows some limited improvement in infiltration in the right lung base and there is d evelopment of a small to moderate-sized left-sided pleural effusion. Clinically feeling better on the current antibiotic coverage. Acute hypoxic respiratory failure currently on 6 L of oxygen by nasal cannula Bilateral pleural effusions left more than right, currently on IV Lasix Multiple bilateral scattered pulmonary nodules, associated mediastinal/hilar lymphadenopathy, and minimal bibasilar airspace disease, greater on the left; concerning for possible infectious process. Underlying rheumatoid lung disease not excluded. Metastatic disease is also not excluded although this is felt to be less likely. Acute febrile illness, currently afebrile Rheumatoid arthritis, maintained on methotrexate and Simponi on outpatient basis Transaminitis; Gallbladder ultrasound unremarkable; possibly secondary to liver toxicity from RA meds, LFTs are improving Former tobacco smoker, entirely 3 years ago, prior to that smoked approximately 1 pack/week on and off Former tobacco smoker Plan: Titrate oxygen flow to maintain saturation above 90%, currently on 1 6 L nasal cannula Antibiotic coverage was modified to include a combination of Bactrim, Levaquin and voriconazole Close monitoring of the LFTs, improving Awaiting the cytology from the bronchial lavage Legionella urine antigen is negative Awaiting fungal stains and PCP stains from the bronchoalveolar lavage Continue IV Solu-Medrol IV Lasix 40 mg every 24 hours Echocardiogram was within normal limits The fungal screen/titers were sent and the titers are pending LFTs are improving and the patient is currently off methotrexate and Simponi as both drugs can cause toxicity hepatic reactions including acute liver failure.. Will stop methotrexate and Simponi. Will treat the pneumonia. Will need obviously a follow-up CAT scan of the chest within the next 3 to 4 months to assess progression of the pulmonary nodules and the mediastinal lymph nodes. Repeat chest x-ray in the morning I will continue to follow
--- NOTE | 2024-02-20 15:01 | P.PN ---
Subjective Progress Note Date: 02/20/24 (delayed charting seen at approx 10am) Patient is a 54-year-old female with known rheumatoid arthritis presenting after acute COVID-19 infection 2 years ago treated with methotrexate and Simponi who presented with generalized weakness. Found to have interstitial pneumonia, cardiomyopathy, acute hepatitis, anemia, and mediastinal lymphadenopathy. Developed acute hypoxic respiratory failure with max O2 supplementation at 10 L high flow, acute hepatitis with max AST of 1186 and max ALT of 600. Bilirubin maxed at 2.3. Initially treated with ceftriaxone and vancomycin and subsequently switched to Bactrim to cover PCP prophylaxis, Levaquin for possible legionnaires disease, and voriconazole for possible fungal pneumonia. Acute hepatitis panel was negative, COVID, flu, enterovirus, rhinovirus, parainfluenza, EBV, and HSV were negative. HIV negative, heterophile antibody negative, Legionella urine antigen and mycoplasma IgM were negative. MRSA nasal screen negative, initial AFB negative. Blood and urine cultures were negative. Fevers regressed after 2 days. Started on high-dose steroids on 02/17. Recently started on Simponi 3 months ago and has been on methotrexate for 2 year s. Seen and examined at bedside. Doing well today. Eating and drinking okay. Denies nausea or vomiting. Vital signs reviewed General: Nontoxic, no distress, appears at stated age Cardiovascular: S1S2 reg, no murmur Lungs: Course bs bilateral, no accessory muscle use Abdominal: Soft, nontender to palpation, no guarding Ext: No gross muscle atrophy, no edema b/l lower extremities, no contractures Neuro: CN II-XI grossly intact, no focal neuro deficits Psych: Alert, oriented, appropriate affect Assessment/Plan: Acute hypoxic respiratory failure Acute interstitial pneumonia with sepsis Cardiomyopathy with EF 45 to 50% mild global hypokinesis Acute hepatitis, improving. Anemia Thrombocytopenia, resolved Rheumatoid arthritis on immunosuppression with methotrexate and Simponi -Continue with Levaquin IV, voriconazole IV, and Bactrim IV -Infectious disease note reviewed: Continue to await fungal and PCP stains -Pulmonary note reviewed. Continue to await cytology from BAL. Continue with IV Solu-Medrol. -Methylprednisolone 60 mg IV every 6 hours -Lasix 40 mg IV daily -Await istoplasma AG -ESR normal and CRP slightly elevated -Suggest contacting rheumatology on 02/20 -Await BAL results - wean O2 as able Imaging: Abdominal ultrasound reviewed showing left pleural effusion with no other significant abnormalities spleen and liver are within normal limits. Data Review: As reviewed from today include CBC, PT/INR, and CMP which are remarkable for white blood cell count 10.9, hemoglobin 9.7, INR 1.19, total bilirubin 0.9, AST 237, ALT 311, ESR 11, CRP 2, procalcitonin improved at 0.31. DVT prophylaxis: Heparin Anticipated discharge date: Pending clinical course Anticipated discharge place: Pending clinical course This dictation was prepared using [employer] voice recognition software. Though every attempt is made to correct errors during dictation some may still exist. Objective - Vital Signs Vital signs: Vital Signs Temp 98.0 F 02/20/24 08:00 Pulse 86 02/20/24 08:00 Resp 17 02/20/24 08:00 BP 98/64 02/20/24 08:00 Pulse Ox 93 L 02/20/24 08:00 FiO2 Intake & Output 02/19/24 02/20/24 02/20/24 18:59 06:59 18:59 Weight 65.771 kg Other: Voiding Method Bedside Commode Toilet Bedside Commode # Voids 4 3 1 # Bowel Movements 1 - Labs CBC & Chem 7: 02/20/24 03:39 02/20/24 03:42 Labs: Abnormal Lab Results - Last 24 Hours (Table) 02/20/24 02/20/24 02/20/24 Range/Units 03:39 03:39 03:42 WBC 10.90 H (4.50-10.00) X 10*3/uL RBC 2.98 L (4.10-5.20) X 10*6/uL Hgb 9.7 L (12.0-15.0) g/dL Hct 28.4 L (37.2-46.3) % MCH 32.6 H (27.0-32.0) pg RDW 14.8 H (11.5-14.5) % MPV 12.3 H (9.5-12.2) FL PT 12.7 H (9.9-11.9) sec INR 1.19 H (0.93-1.11) sec Glucose 193 H (70-110) mg/dL Calcium 8.3 L (8.7-10.3) mg/dL AST 237 H (13-35) U/L ALT 311 H (8-44) U/L Alkaline Phosphatase 570 H (41-126) U/L C-Reactive Protein 2.00 H (0.00-0.80) mg/dL Total Protein 5.8 L (6.2-8.2) g/dL Albumin 2.6 L (3.8-4.9) g/dL Albumin/Globulin Ratio 0.81 L (1.60-3.17) Ratio
[2024-02-21 08:34] LABS: Basophils # (A) 0 X 10*3/uL (0.00-0.10); Basophils % (A) 0 %; Eosinophils # (A) 0 X 10*3/uL (0.04-0.35); Eosinophils % (A) 0 %; HGB 9.1 g/dL (12.0-15.0); Lymphocytes # (A) 0.74 X 10*3/uL (0.90-5.00); Lymphocytes % (A) 8.7 %; MCH 32.4 pg (27.0-32.0); MCHC 33.7 g/dL (32.0-37.0); MCV 96.1 FL (80.0-97.0); Mean Platelet Volume 11.9 FL (9.5-12.2); Monocytes # (A) 0.42 X 10*3/uL (0.20-1.00); Monocytes % (A) 4.9 %; NRBC Per 100 WBC 0 X 10*3/uL (0.00-0.01); Neutrophils # (A) 7.26 X 10*3/uL (1.80-7.70); Neutrophils % (A) 85.3 %; Platelet Count 226 X 10*3/uL (140-440); RBC 2.81 X 10*6/uL (4.10-5.20); WBC 8.51 X 10*3/uL (4.50-10.00)
[2024-02-21 08:52] LABS: ALT 255 U/L (8-44); AST 137 U/L (13-35); Albumin 2.6 g/dL (3.8-4.9); Albumin/Globulin Ratio 0.96 Ratio (1.60-3.17); Alkaline Phosphatase 478 U/L (41-126); Blood Urea Nitrogen 12.3 mg/dL (9.0-27.0); Carbon Dioxide 26.9 mmol/L (21.6-31.8); Chloride 100 mmol/L (96-109); Globulin 2.7 g/dL (1.6-3.3); Glucose 224 mg/dL (70-110); Potassium 3.8 mmol/L (3.5-5.5); Sodium 136 mmol/L (135-145); Total Bilirubin 0.6 mg/dL (0.3-1.2); Total Protein 5.3 g/dL (6.2-8.2)
[2024-02-21 08:55] LABS: Nucleated Cells, Body Fluid 1600 /UL
--- NOTE | 2024-02-21 11:31 | P.PN ---
Subjective Progress Note Date: 02/21/24 Patient is a 54-year-old female with known rheumatoid arthritis presenting after acute COVID-19 infection 2 years ago treated with methotrexate and Simponi who presented with generalized weakness. Found to have interstitial pneumonia, cardiomyopathy, acute hepatitis, anemia, and mediastinal lymphadenopathy. Developed acute hypoxic respiratory failure with max O2 supplementation at 10 L high flow, acute hepatitis with max AST of 1186 and max ALT of 600. Bilirubin maxed at 2.3. Initially treated with ceftriaxone and vancomycin and subsequently switched to Bactrim to cover PCP prophylaxis, Levaquin for possible legionnaires disease, and voriconazole for possible fungal pneumonia. Acute hepatitis panel was negative, COVID, flu, enterovirus, rhinovirus, parainfluenza, EBV, and HSV were negative. HIV negative, heterophile antibody negative, Legionella urine antigen and mycoplasma IgM were negative. MRSA nasal screen negative, initial AFB negative. Blood and urine cultures were negative. Fevers regressed after 2 days. Started on high-dose steroids on 02/17. Recently started on Simponi 3 months ago and has been on methotrexate for 2 years. Seen and examined at bedside. Doing well today. Eating and drinking okay. Denies nausea or vomiting. Vital signs reviewed General: Nontoxic, no distress, appears at stated age Cardiovascular: S1S2 reg, no murmur Lungs: Course bs bilateral, no accessory muscle use Abdominal: Soft, nontender to palpation, no guarding Ext: No gross muscle atrophy, no edema b/l lower extremities, no contractures Neuro: CN II-XI grossly intact, no focal neuro deficits Psych: Alert, oriented, appropriate affect Assessment/Plan: Acute hypoxic respiratory failure Acute interstitial pneumonia with sepsis Cardiomyopathy with EF 45 to 50% mild global hypokinesis Acute hepatitis, improving. Anemia Thrombocytopenia, resolved Rheumatoid arthritis on immunosuppression with methotrexate and Simponi -Continue with Levaquin IV, voriconazole IV, and Bactrim IV -Infectious disease following continue to await fungal and PCP stains -Pulmonary following continue to await cytology from BAL. Continue with IV Solu-Medrol. -Methylprednisolone 60 mg IV every 6 hours -Lasix 40 mg IV daily, monitor electrolytes -Await blastomycosis AG -ESR normal and CRP slightly elevated -Will contact rheumatology today -Await BAL results - wean O2 as able Imaging: No new imaging Data Review: WBC 8.51, hemoglobin 9.1, potassium 3.8, creatinine 0.5, glucose 224, AST 137, ALT 255, ALP 478 DVT prophylaxis: Heparin Anticipated discharge date: Pending clinical course Anticipated discharge place: Pending clinical course Objective - Vital Signs Vital signs: Vital Signs Temp 97.2 F L 02/21/24 07:25 Pulse 82 02/21/24 07:25 Resp 20 02/21/24 07:25 BP 111/73 02/21/24 07:25 Pulse Ox 94 L 02/21/24 07:25 FiO2 Intake & Output 02/20/24 02/21/24 02/21/24 18:59 06:59 18:59 Intake Total 120 540 Balance 120 540 Intake: Oral 120 540 Other: Voiding Method Toilet Bedside Commode # Voids 3 3 - Labs CBC & Chem 7: 02/21/24 03:01 02/21/24 03:01 Labs: Abnormal Lab Results - Last 24 Hours (Table) 02/15/24 02/20/24 02/21/24 Range/Units 14:08 03:39 03:01 RBC (4.10-5.20) X 10*6/uL Hgb (12.0-15.0) g/dL Hct (37.2-46.3) % MCH (27.0-32.0) pg RDW (11.5-14.5) % Immature Gran # (0.00-0.04) X 10*3/uL Lymphocytes # (0.90-5.00) X 10*3/uL Eosinophils # (0.04-0.35) X 10*3/uL PT 12.7 H (9.9-11.9) sec INR 1.19 H (0.93-1.11) sec Creatinine 0.5 L (0.6-1.5) mg/dL BUN/Creatinine Ratio 24.60 H (12.00-20.00) Ratio Glucose 224 H (70-110) mg/dL Calcium 8.0 L (8.7-10.3) mg/dL AST 137 H (13-35) U/L ALT 255 H (8-44) U/L Alkaline Phosphatase 478 H (41-126) U/L Total Protein 5.3 L (6.2-8.2) g/dL Albumin 2.6 L (3.8-4.9) g/dL Albumin/Globulin Ratio 0.96 L (1.60-3.17) Ratio Fluid Appearance Blood Tinged A (Clear) Fluid RBC 6150 H (0-2000) /uL 02/21/24 Range/Units 03:01 RBC 2.81 L (4.10-5.20) X 10*6/uL Hgb 9.1 L (12.0-15.0) g/dL Hct 27.0 L (37.2-46.3) % MCH 32.4 H (27.0-32.0) pg RDW 15.0 H (11.5-14.5) % Immature Gran # 0.09 H (0.00-0.04) X 10*3/uL Lymphocytes # 0.74 L (0.90-5.00) X 10*3/uL Eosinophils # 0 L (0.04-0.35) X 10*3/uL PT (9.9-11.9) sec INR (0.93-1.11) sec Creatinine (0.6-1.5) mg/dL BUN/Creatinine Ratio (12.00-20.00) Ratio Glucose (70-110) mg/dL Calcium (8.7-10.3) mg/dL AST (13-35) U/L ALT (8-44) U/L Alkaline Phosphatase (41-126) U/L Total Protein (6.2-8.2) g/dL Albumin (3.8-4.9) g/dL Albumin/Globulin Ratio (1.60-3.17) Ratio Fluid Appearance (Clear) Fluid RBC (0-2000) /uL Microbiology - Last 24 Hours (Table) 02/15/24 14:08 Legionella Culture - Preliminary Bronchial Washings - Left 02/15/24 14:08 Acid Fast Bacilli Smear - Preliminary Bronchoalviolar Lavage - Left 02/15/24 14:08 Gram Stain - Final Bronchoalviolar Lavage - Left Bronchial Washings Culture - Final
--- NOTE | 2024-02-21 13:02 | XR ---
EXAMINATION TYPE: XR chest 1V portable DATE OF EXAM: 02/21/2024 12:43 PM COMPARISON: Chest radiographs from CLINICAL INDICATION: Female, 54 years old with history of Hypoxemia, , FINDINGS: The cardiomediastinal silhouette, aorta, and pulmonary vasculature are within normal limits there ar e small bilateral pleural effusions, left greater than right with some interval improvement on the le ft. Upper and mid lungs appear clear. IMPRESSION: Small bilateral pleural effusions, left greater than right, persist though slightly decreased in size now on the left. [facility], , 02/21/2024 12:59 PM
--- NOTE | 2024-02-21 13:10 | US ---
EXAMINATION TYPE: US chest DATE OF EXAM: 02/21/2024 COMPARISON: Radiograph same day CLINICAL INDICATION: Female, 54 years old with history of Left pleural effusion; TECHNIQUE: Grayscale imaging of the chest. 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 Pulmonologists are able to review the images in the patient?s EMR. IMPRESSIONS: [id number] sized left pleural effusion with underlying atelectatic/opacified lung parenchyma. [facility], , 02/21/2024 1:08 PM
--- NOTE | 2024-02-21 13:25 | US ---
EXAMINATION TYPE: US venous doppler duplex UE RT DATE OF EXAM: 02/21/2024 COMPARISON: NONE CLINICAL INDICATION: Female, 54 years old with history of Right arm pain and edema; TECHNIQUE: Grayscale, color Doppler and spectral Doppler imaging of the upper extremity. SIDE PERFORMED: Right FINDINGS: Car Framer notes: Exam done portable Right Arm: Appears negative for DVT Grayscale, color doppler, spectral doppler imaging performed of the deep veins of the upper extremiti es. IMPRESSION: No evidence for DVT within the right upper extremity. [facility], , 02/21/2024 1:22 PM
[2024-02-21] MEDS: WATER IVPB SCH (15:26)
[2024-02-21] MEDS: SULFAMETHOX TMP IVPB SCH (15:26)
[2024-02-21] MEDS: DEXTROSE 5% IVPB SCH (15:26)
--- NOTE | 2024-02-21 16:17 | P.PN ---
Subjective Progress Note Date: 02/21/24 Principal diagnosis: Acute hypoxic respiratory failure secondary to bilateral pneumonia Patient is a 54-year-old female with past medical history significant for rheumatoid arthritis. She does take Simponi and methotrexate on outpatient basis. Primary care provider is Dr. Sneha King. Presents with a chief complaint of weakness and lethargy that started on Wednesday, first noticed at a football game. She is also had intermittent chills and diaphoresis. Appetite has been poor. No nausea or vomiting or other GI manifestations. She denies any recent travel or sick contacts. She denies any shortness of breath, cough, chest pain, hemoptysis. On arrival to the emergency department she did have a high temperature with a Tmax of 103.5 F. Chest CTA protocol was ordered due to an elevated D-dimer. Did not show evidence of pulmonary embolism. Scattered bilateral pulmonary nodules with the largest in the left upper lobe measuring 1.3 x 1.1 cm. Groundglass halo sign around the solid pulmonary nodule in the left upper lobe apex. Multiple other sub-centimeter pulmonary nodules. Prominent bilateral mediastinal and hilar lymphadenopathy noted. There are scattered airspace opacities in the lung bases left greater than right. No history of malignancy. No significant weight loss. CBC: WBC count 6.4, hemoglobin 13.5, hematocrit 39.5, platelets 144. CMP: Sodium 129, potassium 3.8, chloride 92, serum bicarb 29, BUN 16, creatinine 0.75, glucose 126. Lactic 1. AST 782, ALT 444, ALP 431. Lipase 325. Troponins less than 0.012. NT proBNP low. Negative for influenza, RSV, COVID. Most recent vital signs: Temperature 98.4 F, heart rate 103 bpm, blood pressure 102/69 mmHg, SpO2 93% on room air. Normal saline infusing at 130 mL/h. Nontoxic appearance. 02/15/2024, clinically unchanged, continues to have some cough and some limited shortness of breath. She is currently on 2 L of oxygen nasal cannula and she has a pulse ox of 91%. Repeat chest x-ray was done this morning and there is interval worsening of the lower lobe consolidations and the patient has developed bibasilar airspace disease/infiltration. This is most consistent with pneumonia. The patient white cell count remains at 6.1, hemoglobin is 11.5 and a platelet count of 209. Electrolytes are stable. LFTs are improving and the AST has dropped down to 541, ALT is down to 460 and alkaline phosphatase at 407. JUVENTINO was negative. The PE and the c-ANCA were both negative. The Legionella urine antigen was negative. The ultrasound of the gallbladder was done at the time of admission and it showed no acute abnormalities. The plan is to proceed with a bronchoscopy and obtain a bronchoalveolar lavage regarding an ongoing pneumonia in immunocompromised patient who has been taking a combination of Simponi and methotrexate. On today's evaluation of 02/16/2024, the patient is clinically unchanged. However, the repeat chest x-ray that was done today shows worsening in the bilateral pulmonary infiltrates noted in the mid and lower lung yee bilaterally. The patient remains on 2 L of oxygen by nasal cannula. Noted a bronchoscopy was done yesterday along with a bronchial lavage. The cultures are still pending. Discussed the case with the pathology and the microbiology de partment. This may take another 24 to 48 hours. Meanwhile, the blood cultures have been negative. Based on the progression of the pulmonary infiltrates, I started the patient on a combination of cefepime and vancomycin. Meanwhile, the white cell count is at 6.5, hemoglobin 10.5, platelet count is at 205, electrolytes are stable. LFTs are gradually improving. The viral analysis from the bronchoalveolar lavage was essentially negative. Awaiting fungal stains, awaiting PCP stain, absolute CD4 count is 514. On 02/17/2024, the patient's overall condition is stable. She is having episode of low-grade fever with a Tmax of 100.3. Chest x-ray findings from today shows stable infiltration in the middle lung bases bilaterally. She is on oxygen and 4 L nasal cannula. Final cultures have not resulted yet. The white cell count is 6.1. Hemoglobin is 9.9. She does have abnormal LFTs with transaminitis as mentioned earlier. The bronchoalveolar lavage AFB was negative. There was no acid f fast organisms. The bacterial cultures came back negative and the patient remains on a combination of cefepime and vancomycin. On 02/18/2024, the patient had some increased respiratory difficulties in the morning. The patient became more hypoxic and she was placed on 10 L of oxygen by nasal cannula. At the same time, the patient was given a dose of Lasix which resulted in significant diuresis and the patient produced excellent urine output following that and she is currently on 8 L of oxygen nasal cannula up with a pulse ox of 85%. The white cell count is 6.3 with a hemoglobin of 10 and a platelet count of 164. INR is at 1.49. LFTs remain abnormal with a AST of 561, ALT of 405, alkaline phosphatase of 591, bilirubin of 2.3 and a BUN of 9 with a creatinine of 0.6. Potassium is at 3.4. Sodium levels at 131. A follow-up CAT scan of the chest was done today which showed development of moderate-sized bilateral pleural effusion lung base bilaterally in addition to patchy groundg lass bilateral pulmonary infiltrates consistent with atypical/opportunistic pneumonia. Drug-induced pneumonitis cannot be complete excluded. There is also redemonstration of pulmonary nodules and mediastinal lymphadenopathy. I had a lengthy discussion with the pathology team. The cytology and the fungal stain and the PCP stain has not been resulted yet. The bronchial lavage showed no microbial growth. Based on that, we decided to make some antibiotic changes in collaboration with infectious disease. The patient accordingly was taken off the cefepime and vancomycin and the patient was started on a combination of Levaquin, Bactrim and voriconazole. Concern with hepatotoxicity in association with voriconazole and the LFTs will be monitored very closely. Echocardiogram was also ordered. She is currently afebrile. On 02/19/2024, the patient is being seen for a follow-up. Clinically unchanged compared to yesterday. No interval worsening shortness of breath. She is currently on 10 L of oxygen high flow with a pulse ox of 93%. Repeat chest x- ray was done today and the findings are essentially stable, probably some slight improvement in the basilar pulmonary filtrates and the patient continues to have bilateral pleural effusion. Echocardiogram was essentially within normal limits. Labs show a disturbed LFTs with an AST of 277, ALT of 345 and an alkaline phosphatase of 538. LDH was 626. Patient remains currently on a combination of voriconazole, Bactrim and Levaquin. She is also on IV Solu- Medrol. Afebrile. Denies having any specific complaints. She is also being diuresed with IV Lasix 40 mg subcu 24 hours. Fluid balance has been negative. On 02/20/2024, the patient is being seen for a follow-up. Feeling better compared to yesterday. Less short of breath compared to yesterday. A repeat chest x-ray was done today and shows a moderate-sized left-sided pleural effusion. Infiltrates in the right lung base seems to have improved. Remains on Levaquin, Bactrim and voriconazole. Afebrile. Pulse ox is improved and the patient is currently is down to 6 L of O2 nasal cannula. No pleurisy. No hemoptysis. The white cell count is at 10.9 with a hemoglobin 9.7 and a platelet count of 205. INR is 1.9. LFTs have somewhat improved and AST is down to 237, ALT is down to 311, alkaline phosphatase at 570, LDH is at 626, total protein is at 5.8 with an albumin of 2.6. Procalcitonin level is at 0.31. The ultrasound of the abdomen shows a left-sided pleural effusion without any other significant abnormalities. The patient remains on IV Lasix. IV fluids are currently at KVO. Patient was seen today on 02/21/2024, patient is feeling much better today, on 4 L nasal cannula, not in any distress, follow-up chest x-ray showed improvement in her left-sided pleural effusion and almost near complete resolution of right lower lobe pneumonia and left lower lobe pneumonia with very minimal pleural effusion noted. Not large enough to consider safe thoracentesis, clinically and radiographically the patient is showing significant improvement. WBC count is 8.5 hemoglobin 9.1. Electrolytes are normal, renal profile is normal. Liver enzymes are steadily improving and her procalcitonin level is 0.31, compared to admission procalcitonin level of 0.56 Objective - Vital Signs Vital signs: Vital Signs Temp 97.8 F 02/21/24 14:00 Pulse 75 02/21/24 14:00 Resp 18 02/21/24 14:00 BP 108/73 02/21/24 14:00 Pulse Ox 95 02/21/24 14:00 FiO2 Intake & Output 02/20/24 02/21/24 02/21/24 18:59 06:59 18:59 Intake Total 120 540 Balance 120 540 Intake: Oral 120 540 Other: Voiding Method Toilet Bedside Commode # Voids 3 3 2 - Exam GENERAL EXAM: Revealed 64-year-old female pleasant in no distress on 4 L nasal cannula HEAD: Normocephalic and atraumatic EYES: Normal reaction of pupils, equal size. NOSE: Clear with pink turbinates. THROAT: No erythema or exudates. NECK: No masses, no JVD. CHEST: No chest wall deformity. LUNGS: Clear bilaterally no crackles rhonchi or wheezes CVS: S1 and S2 normal with no audible murmur, regular rhythm. No extra heart sounds ABDOMEN: No hepatosplenomegaly, active bowel sounds, no guarding or rigidity. SKIN: No rashes, no cutaneous nodules CENTRAL NERVOUS SYSTEM: No focal deficits, tone is normal in all 4 extremities. EXTREMITIES: There is no peripheral edema, clubbing, or cyanosis. Peripheral pulses are intact. - Labs CBC & Chem 7: 02/21/24 03:01 02/21/24 03:01 Labs: Abnormal Lab Results - Last 24 Hours (Table) 02/15/24 02/21/24 02/21/24 Range/Units 14:08 03:01 03:01 RBC 2.81 L (4.10-5.20) X 10*6/uL Hgb 9.1 L (12.0-15.0) g/dL Hct 27.0 L (37.2-46.3) % MCH 32.4 H (27.0-32.0) pg RDW 15.0 H (11.5-14.5) % Immature Gran # 0.09 H (0.00-0.04) X 10*3/uL Lymphocytes # 0.74 L (0.90-5.00) X 10*3/uL Eosinophils # 0 L (0.04-0.35) X 10*3/uL Creatinine 0.5 L (0.6-1.5) mg/dL BUN/Creatinine Ratio 24.60 H (12.00-20.00) Ratio Glucose 224 H (70-110) mg/dL Calcium 8.0 L (8.7-10.3) mg/dL AST 137 H (13-35) U/L ALT 255 H (8-44) U/L Alkaline Phosphatase 478 H (41-126) U/L Total Protein 5.3 L (6.2-8.2) g/dL Albumin 2.6 L (3.8-4.9) g/dL Albumin/Globulin Ratio 0.96 L (1.60-3.17) Ratio Fluid Appearance Blood Tinged A (Clear) Fluid RBC 6150 H (0-2000) /uL Microbiology - Last 24 Hours (Table) 02/15/24 14:08 Legionella Culture - Preliminary Bronchial Washings - Left 02/15/24 14:08 Acid Fast Bacilli Smear - Preliminary Bronchoalviolar Lavage - Left 02/15/24 14:08 Gram Stain - Final Bronchoalviolar Lavage - Left Bronchial Washings Culture - Final Assessment and Plan Assessment: Impression Bilateral lower lobe pneumonia, likely Simponi induced pneumonitis. With induced hepatitis Acute hypoxic respiratory failure currently on 4 L nasal Bilateral pleural effusions left more than right, improving based on chest x-ray today, no need for thoracentesis. Multiple bilateral scattered pulmonary nodules, associated mediastinal/hilar lymphadenopathy, and minimal bibasilar airspace disease, greater on the left;, also felt to be related to Simponi induced, would recommend repeat CT of the chest in the next couple of weeks Acute febrile illness, currently afebrile Rheumatoid arthritis, maintained on methotrexate and Simponi on outpatient basis Transaminitis; Gallbladder ultrasound unremarkable; possibly secondary to liver toxicity from RA meds, steadily improving based on the labs today. Former tobacco smoker, entirely 3 years ago, prior to that smoked approximately 1 pack/week on and off Recommendation: Awaiting the final report on the BAL fluid including PCP stain which is not available yet Continue antibiotics for now although I am considering stopping all of the antibiotics once we are convinced that all the cultures and the stains are negative Continue steroids and will need to be on tapering dose on outpatient basis upon discharge. Patient is on Solu-Medrol. No need for thoracentesis based on chest x-ray today. Continue to monitor liver enzymes Will continue to follow Time with Patient: Less than 30
[2024-02-22 08:30] LABS: Basophils # (A) 0.01 X 10*3/uL (0.00-0.10); Basophils % (A) 0.1 %; Eosinophils # (A) 0 X 10*3/uL (0.04-0.35); Eosinophils % (A) 0 %; HCT 28.1 % (37.2-46.3); HGB 9.2 g/dL (12.0-15.0); Lymphocytes # (A) 0.58 X 10*3/uL (0.90-5.00); Lymphocytes % (A) 8.7 %; MCH 32.3 pg (27.0-32.0); MCHC 32.7 g/dL (32.0-37.0); MCV 98.6 FL (80.0-97.0); Mean Platelet Volume 11.9 FL (9.5-12.2); Monocytes # (A) 0.28 X 10*3/uL (0.20-1.00); Monocytes % (A) 4.2 %; NRBC Per 100 WBC 0 X 10*3/uL (0.00-0.01); Neutrophils # (A) 5.73 X 10*3/uL (1.80-7.70); Neutrophils % (A) 85.7 %; Platelet Count 224 X 10*3/uL (140-440); RBC 2.85 X 10*6/uL (4.10-5.20); RDW 15.3 % (11.5-14.5); WBC 6.69 X 10*3/uL (4.50-10.00)
[2024-02-22 08:35] LABS: Blood Urea Nitrogen 11.7 mg/dL (9.0-27.0); Calcium 7.9 mg/dL (8.7-10.3); Carbon Dioxide 23.8 mmol/L (21.6-31.8); Chloride 98 mmol/L (96-109); Glucose 271 mg/dL (70-110); Magnesium 2.6 mg/dL (1.5-2.4); Potassium 4.4 mmol/L (3.5-5.5); Sodium 132 mmol/L (135-145)
--- NOTE | 2024-02-22 08:57 | P.PN ---
Subjective Progress Note Date: 02/21/24 Principal diagnosis: Reason for follow-up is pneumonia Patient is a 54-year-old female with a past medical history of osteoarthritis management arthritis COVID-19 in 2020, previous history of smoking presenting to the hospital for evaluation of not feeling well, patient was noted to be febrile did have a CT angiogram of the chest did shows airspace opacities lung base scattered pulmonary nodules. On today's evaluation that is 02/21/2024, patient has been afebrile, patient is breathing slightly comfortably and is currently down to 4 L nasal cannula oxygen patient denies having any significant cough no chest pain, patient denies nausea vomiting or diarrhea and no abdominal pain. Patient complaining of some swelling to the right upper extremity Patient white count is 8.51 creatinine 0.5 liver enzymes improved chest x-ray small bilateral effusion no evidence of DVT with right upper extremity Objective - Vital Signs Vital signs: Vital Signs Temp 97.2 F L 02/21/24 07:25 Pulse 82 02/21/24 07:25 Resp 20 02/21/24 07:25 BP 111/73 02/21/24 07:25 Pulse Ox 94 L 02/21/24 07:25 FiO2 Intake & Output 02/20/24 02/21/24 02/21/24 18:59 06:59 18:59 Intake Total 120 540 Balance 120 540 Intake: Oral 120 540 Other: Voiding Method Toilet Bedside Commode # Voids 3 3 - Exam GENERAL DESCRIPTION: Middle-age female lying in bed in no distress RESPIRATORY SYSTEM: Unlabored breathing , coarse breath sound at the base HEART: S1 S2 regular rate and rhythm , ABDOMEN: Soft , no tenderness EXTREMITIES: No edema feet - Labs CBC & Chem 7: 02/22/24 02:52 02/22/24 02:52 Labs: Abnormal Lab Results - Last 24 Hours (Table) 02/15/24 02/20/24 02/21/24 Range/Units 14:08 03:39 03:01 RBC (4.10-5.20) X 10*6/uL Hgb (12.0-15.0) g/dL Hct (37.2-46.3) % MCH (27.0-32.0) pg RDW (11.5-14.5) % Immature Gran # (0.00-0.04) X 10*3/uL Lymphocytes # (0.90-5.00) X 10*3/uL Eosinophils # (0.04-0.35) X 10*3/uL PT 12.7 H (9.9-11.9) sec INR 1.19 H (0.93-1.11) sec Creatinine 0.5 L (0.6-1.5) mg/dL BUN/Creatinine Ratio 24.60 H (12.00-20.00) Ratio Glucose 224 H (70-110) mg/dL Calcium 8.0 L (8.7-10.3) mg/dL AST 137 H (13-35) U/L ALT 255 H (8-44) U/L Alkaline Phosphatase 478 H (41-126) U/L Total Protein 5.3 L (6.2-8.2) g/dL Albumin 2.6 L (3.8-4.9) g/dL Albumin/Globulin Ratio 0.96 L (1.60-3.17) Ratio Fluid Appearance Blood Tinged A (Clear) Fluid RBC 6150 H (0-2000) /uL 02/21/24 Range/Units 03:01 RBC 2.81 L (4.10-5.20) X 10*6/uL Hgb 9.1 L (12.0-15.0) g/dL Hct 27.0 L (37.2-46.3) % MCH 32.4 H (27.0-32.0) pg RDW 15.0 H (11.5-14.5) % Immature Gran # 0.09 H (0.00-0.04) X 10*3/uL Lymphocytes # 0.74 L (0.90-5.00) X 10*3/uL Eosinophils # 0 L (0.04-0.35) X 10*3/uL PT (9.9-11.9) sec INR (0.93-1.11) sec Creatinine (0.6-1.5) mg/dL BUN/Creatinine Ratio (12.00-20.00) Ratio Glucose (70-110) mg/dL Calcium (8.7-10.3) mg/dL AST (13-35) U/L ALT (8-44) U/L Alkaline Phosphatase (41-126) U/L Total Protein (6.2-8.2) g/dL Albumin (3.8-4.9) g/dL Albumin/Globulin Ratio (1.60-3.17) Ratio Fluid Appearance (Clear) Fluid RBC (0-2000) /uL Microbiology - Last 24 Hours (Table) 02/15/24 14:08 Legionella Culture - Preliminary Bronchial Washings - Left 02/15/24 14:08 Acid Fast Bacilli Smear - Preliminary Bronchoalviolar Lavage - Left 02/15/24 14:08 Gram Stain - Final Bronchoalviolar Lavage - Left Bronchial Washings Culture - Final Assessment and Plan (1) Sepsis Current Visit: Yes Status: Acute Code(s): A41.9 - SEPSIS, UNSPECIFIED ORGANISM SNOMED Code(s): 48203709 (2) Thrush Current Visit: Yes Status: Acute Code(s): B37.0 - CANDIDAL STOMATITIS SNOMED Code(s): 81663401 (3) Hepatitis Current Visit: Yes Status: Acute Code(s): K75.9 - INFLAMMATORY LIVER DISEASE, UNSPECIFIED SNOMED Code(s): 631344393 (4) Pneumonia Current Visit: Yes Status: Acute Code(s): J18.9 - PNEUMONIA, UNSPECIFIED ORGANISM SNOMED Code(s): 315553219 Plan: 1patient presented to hospital with sepsis in this patient who did have fever tachycardia meeting criteria for SIRS source likely pneumonia as seen on the CT, of the chest with a question of typical versus atypical pneumonia urine for Legionella antigen has been negative 2-patient also have elevated liver enzymes though acute hepatitis panel negative EBV IgG positive IgM is negative, gallbladder ultrasound did not show any features of cholecystitis 3- patient is status post bronchoscopy lavage and deep culture which are currently pending 4patient did have resolution of her fever and some improvement in her clinical condition as well as improvement in her liver enzyme questionably benefit from steroids and all symptoms related to possibly her daughter she has been taking for rheumatoid arthritis as per discussion with the pulmonary, for now patient will be treated Levaquin Bactrim DS and voriconazole while waiting for the PCP and fungal stains to finalize Dictation was produced using [employer]ation software. please excuse any grammatical, word or spelling errors. Time with Patient: Less than 30
--- NOTE | 2024-02-22 09:55 | P.PN ---
Subjective Progress Note Date: 02/22/24 Patient is a 54-year-old female with known rheumatoid arthritis presenting after acute COVID-19 infection 2 years ago treated with methotrexate and Simponi who presented with generalized weakness. Found to have interstitial pneumonia, cardiomyopathy, acute hepatitis, anemia, and mediastinal lymphadenopathy. Developed acute hypoxic respiratory failure with max O2 supplementation at 10 L high flow, acute hepatitis with max AST of 1186 and max ALT of 600. Bilirubin maxed at 2.3. Initially treated with ceftriaxone and vancomycin and subsequently switched to Bactrim to cover PCP prophylaxis, Levaquin for possible legionnaires disease, and voriconazole for possible fungal pneumonia. Acute hepatitis panel was negative, COVID, flu, enterovirus, rhinovirus, parainfluenza, EBV, and HSV were negative. HIV negative, heterophile antibody negative, Legionella urine antigen and mycoplasma IgM were negative. MRSA nasal screen negative, initial AFB negative. Blood and urine cultures were negative. Fevers regressed after 2 days. Started on high-dose steroids on 02/17. Recently started on Simponi 3 months ago and has been on methotrexate for 2 years. Seen and examined at bedside. Doing well today. Eating and drinking okay. Denies nausea or vomiting. Vital signs reviewed General: Nontoxic, no distress, appears at stated age Cardiovascular: S1S2 reg, no murmur Lungs: Course bs bilateral, no accessory muscle use Abdominal: Soft, nontender to palpation, no guarding Ext: No gross muscle atrophy, no edema b/l lower extremities, no contractures Neuro: CN II-XI grossly intact, no focal neuro deficits Psych: Alert, oriented, appropriate affect Assessment/Plan: Acute hypoxic respiratory failure Acute interstitial pneumonia with sepsis Cardiomyopathy with EF 45 to 50% mild global hypokinesis Acute hepatitis, improving. Normocytic anemia, likely secondary to acute illness Thrombocytopenia, resolved Mild hyponatremia Rheumatoid arthritis on immunosuppression with methotrexate and Simponi -Continue with Levaquin IV, voriconazole IV, and Bactrim IV -Infectious disease following continue to await fungal and PCP stains -Pulmonary following, Continue with IV Solu-Medrol, consider discontinuing IV antibiotics and antifungal -Methylprednisolone 60 mg IV every 6 hours -Lasix 40 mg IV daily, monitor electrolytes -Await blastomycosis AG -ESR normal and CRP slightly elevated -Rheumatology recommending discontinuing methotrexate and Simponi for now at the time of discharge, outpatient follow-up - wean O2 as able -Follow CBC and CMP Imaging: No new imaging Data Review: WBC 6.69, hemoglobin 9.2, platelet 224, sodium 132, creatinine 0.6, magnesium 2.6 DVT prophylaxis: Heparin subcu Anticipated discharge date: Pending clinical course Anticipated discharge place: Pending clinical course Objective - Vital Signs Vital signs: Vital Signs Temp 97.8 F 02/22/24 07:32 Pulse 75 02/22/24 07:32 Resp 16 02/22/24 07:32 BP 119/74 02/22/24 07:32 Pulse Ox 93 L 02/22/24 07:32 FiO2 Intake & Output 02/21/24 02/22/24 02/22/24 18:59 06:59 18:59 Intake Total 1620 Balance 1620 Intake: Oral 1620 Other: # Voids 2 7 - Labs CBC & Chem 7: 02/22/24 02:52 02/22/24 02:52 Labs: Abnormal Lab Results - Last 24 Hours (Table) 02/22/24 02/22/24 Range/Units 02:52 02:52 RBC 2.85 L (4.10-5.20) X 10*6/uL Hgb 9.2 L (12.0-15.0) g/dL Hct 28.1 L (37.2-46.3) % MCV 98.6 H (80.0-97.0) FL MCH 32.3 H (27.0-32.0) pg RDW 15.3 H (11.5-14.5) % Immature Gran # 0.09 H (0.00-0.04) X 10*3/uL Lymphocytes # 0.58 L (0.90-5.00) X 10*3/uL Eosinophils # 0 L (0.04-0.35) X 10*3/uL Sodium 132 L (135-145) mmol/L Glucose 271 H (70-110) mg/dL Calcium 7.9 L (8.7-10.3) mg/dL Magnesium 2.6 H (1.5-2.4) mg/dL Microbiology - Last 24 Hours (Table) 02/15/24 14:08 Legionella Culture - Preliminary Bronchial Washings - Left 02/15/24 14:08 Acid Fast Bacilli Smear - Preliminary Bronchoalviolar Lavage - Left 02/15/24 14:08 Gram Stain - Final Bronchoalviolar Lavage - Left Bronchial Washings Culture - Final
--- NOTE | 2024-02-22 12:55 | P.PN ---
Subjective Progress Note Date: 02/22/24 Principal diagnosis: Reason for follow-up is pneumonia Patient is a 54-year-old female with a past medical history of osteoarthritis management arthritis COVID-19 in 2020, previous history of smoking presenting to the hospital for evaluation of not feeling well, patient was noted to be febrile did have a CT angiogram of the chest did shows airspace opacities lung base scattered pulmonary nodules. On today's evaluation that is 02/22/2024, Patient is afebrile this morning patient denies having any chest pain and breathing more comfortable the cough is decreased intensity, the patient is currently on 3 L nasal cannula oxygen patient denies any abdominal pain no diarrhea no nausea no vomiting. Patient white count 6.69 creatinine 0.6 culture remains to be negative fungal and PCP stains still pending Objective - Vital Signs Vital signs: Vital Signs Temp 97.8 F 02/22/24 07:32 Pulse 75 02/22/24 07:32 Resp 16 02/22/24 07:32 BP 119/74 02/22/24 07:32 Pulse Ox 93 L 02/22/24 07:32 FiO2 Intake & Output 02/21/24 02/22/24 02/22/24 18:59 06:59 18:59 Intake Total 1620 Balance 1620 Intake: Oral 1620 Other: # Voids 2 7 - Exam GENERAL DESCRIPTION: Middle-age female lying in bed in no distress RESPIRATORY SYSTEM: Unlabored breathing , coarse breath sound at the base HEART: S1 S2 regular rate and rhythm , ABDOMEN: Soft , no tenderness EXTREMITIES: No edema feet - Labs CBC & Chem 7: 02/22/24 02:52 02/22/24 02:52 Labs: Abnormal Lab Results - Last 24 Hours (Table) 02/22/24 02/22/24 Range/Units 02:52 02:52 RBC 2.85 L (4.10-5.20) X 10*6/uL Hgb 9.2 L (12.0-15.0) g/dL Hct 28.1 L (37.2-46.3) % MCV 98.6 H (80.0-97.0) FL MCH 32.3 H (27.0-32.0) pg RDW 15.3 H (11.5-14.5) % Immature Gran # 0.09 H (0.00-0.04) X 10*3/uL Lymphocytes # 0.58 L (0.90-5.00) X 10*3/uL Eosinophils # 0 L (0.04-0.35) X 10*3/uL Sodium 132 L (135-145) mmol/L Glucose 271 H (70-110) mg/dL Calcium 7.9 L (8.7-10.3) mg/dL Magnesium 2.6 H (1.5-2.4) mg/dL Microbiology - Last 24 Hours (Table) 02/15/24 14:08 Legionella Culture - Preliminary Bronchial Washings - Left 02/15/24 14:08 Acid Fast Bacilli Smear - Preliminary Bronchoalviolar Lavage - Left 02/15/24 14:08 Gram Stain - Final Bronchoalviolar Lavage - Left Bronchial Washings Culture - Final Assessment and Plan (1) Sepsis Current Visit: Yes Status: Acute Code(s): A41.9 - SEPSIS, UNSPECIFIED ORGANISM SNOMED Code(s): 96206743 (2) Thrush Current Visit: Yes Status: Acute Code(s): B37.0 - CANDIDAL STOMATITIS SNOMED Code(s): 26910329 (3) Hepatitis Current Visit: Yes Status: Acute Code(s): K75.9 - INFLAMMATORY LIVER DI SEASE, UNSPECIFIED SNOMED Code(s): 281357643 (4) Pneumonia Current Visit: Yes Status: Acute Code(s): J18.9 - PNEUMONIA, UNSPECIFIED ORGANISM SNOMED Code(s): 513700946 Plan: 1patient presented to hospital with shortness of breath did have concern for possible atypical pneumonia as well as elevated liver enzymes with initial concern for infectious etiology. 2- patient is status post bronchoscopy lavage and deep culture which are so far negative fungal PCP stain still pending 3patient did have improvement in her clinical condition which could be related to the steroid patient has received and also have improvement in her liver enzymes as well both of these factors point towards possible of symptoms related to Simponi the patient already drug and not infectious etiology, detailed discussion with the pulmonary who or in agreement to discontinue antibiotics and antifungal, will monitor the patient closely off antibiotic therapy while inpatient continue with the steroids multiple question concern answered Dictation was produced using [employer] software. please excuse any grammatical, word or spelling errors. Time with Patient: Less than 30
--- NOTE | 2024-02-22 16:08 | P.PN ---
Subjective Progress Note Date: 02/22/24 Principal diagnosis: Acute hypoxic respiratory failure secondary to bilateral pneumonia Patient is a 54-year-old female with past medical history significant for rheumatoid arthritis. She does take Simponi and methotrexate on outpatient basis. Primary care provider is Dr. Sneha King. Presents with a chief complaint of weakness and lethargy that started on Wednesday, first noticed at a football game. She is also had intermittent chills and diaphoresis. Appetite has been poor. No nausea or vomiting or other GI manifestations. She denies any recent travel or sick contacts. She denies any shortness of breath, cough, chest pain, hemoptysis. On arrival to the emergency department she did have a high temperature with a Tmax of 103.5 F. Chest CTA protocol was ordered due to an elevated D-dimer. Did not show evidence of pulmonary embolism. Scattered bilateral pulmonary nodules with the largest in the left upper lobe measuring 1.3 x 1.1 cm. Groundglass halo sign around the solid pulmonary nodule in the left upper lobe apex. Multiple other sub-centimeter pulmonary nodules. Prominent bilateral mediastinal and hilar lymphadenopathy noted. There are scattered airspace opacities in the lung bases left greater than right. No history of malignancy. No significant weight loss. CBC: WBC count 6.4, hemoglobin 13.5, hematocrit 39.5, platelets 144. CMP: Sodium 129, potassium 3.8, chloride 92, serum bicarb 29, BUN 16, creatinine 0.75, glucose 126. Lactic 1. AST 782, ALT 444, ALP 431. Lipase 325. Troponins less than 0.012. NT proBNP low. Negative for influenza, RSV, COVID. Most recent vital signs: Temperature 98.4 F, heart rate 103 bpm, blood pressure 102/69 mmHg, SpO2 93% on room air. Normal saline infusing at 130 mL/h. Nontoxic appearance. 02/15/2024, clinically unchanged, continues to have some cough and some limited shortness of breath. She is currently on 2 L of oxygen nasal cannula and she has a pulse ox of 91%. Repeat chest x-ray was done this morning and there is interval worsening of the lower lobe consolidations and the patient has developed bibasilar airspace disease/infiltration. This is most consistent with pneumonia. The patient white cell count remains at 6.1, hemoglobin is 11.5 and a platelet count of 209. Electrolytes are stable. LFTs are improving and the AST has dropped down to 541, ALT is down to 460 and alkaline phosphatase at 407. JUVENTINO was negative. The PE and the c-ANCA were both negative. The Legionella urine antigen was negative. The ultrasound of the gallbladder was done at the time of admission and it showed no acute abnormalities. The plan is to proceed with a bronchoscopy and obtain a bronchoalveolar lavage regarding an ongoing pneumonia in immunocompromised patient who has been taking a combination of Simponi and methotrexate. On today's evaluation of 02/16/2024, the patient is clinically unchanged. However, the repeat chest x-ray that was done today shows worsening in the bilateral pulmonary infiltrates noted in the mid and lower lung yee bilaterally. The patient remains on 2 L of oxygen by nasal cannula. Noted a bronchoscopy was done yesterday along with a bronchial lavage. The cultures are still pending. Discussed the case with the pathology and the microbiology de partment. This may take another 24 to 48 hours. Meanwhile, the blood cultures have been negative. Based on the progression of the pulmonary infiltrates, I started the patient on a combination of cefepime and vancomycin. Meanwhile, the white cell count is at 6.5, hemoglobin 10.5, platelet count is at 205, electrolytes are stable. LFTs are gradually improving. The viral analysis from the bronchoalveolar lavage was essentially negative. Awaiting fungal stains, awaiting PCP stain, absolute CD4 count is 514. On 02/17/2024, the patient's overall condition is stable. She is having episode of low-grade fever with a Tmax of 100.3. Chest x-ray findings from today shows stable infiltration in the middle lung bases bilaterally. She is on oxygen and 4 L nasal cannula. Final cultures have not resulted yet. The white cell count is 6.1. Hemoglobin is 9.9. She does have abnormal LFTs with transaminitis as mentioned earlier. The bronchoalveolar lavage AFB was negative. There was no acid f fast organisms. The bacterial cultures came back negative and the patient remains on a combination of cefepime and vancomycin. On 02/18/2024, the patient had some increased respiratory difficulties in the morning. The patient became more hypoxic and she was placed on 10 L of oxygen by nasal cannula. At the same time, the patient was given a dose of Lasix which resulted in significant diuresis and the patient produced excellent urine output following that and she is currently on 8 L of oxygen nasal cannula up with a pulse ox of 85%. The white cell count is 6.3 with a hemoglobin of 10 and a platelet count of 164. INR is at 1.49. LFTs remain abnormal with a AST of 561, ALT of 405, alkaline phosphatase of 591, bilirubin of 2.3 and a BUN of 9 with a creatinine of 0.6. Potassium is at 3.4. Sodium levels at 131. A follow-up CAT scan of the chest was done today which showed development of moderate-sized bilateral pleural effusion lung base bilaterally in addition to patchy groundg lass bilateral pulmonary infiltrates consistent with atypical/opportunistic pneumonia. Drug-induced pneumonitis cannot be complete excluded. There is also redemonstration of pulmonary nodules and mediastinal lymphadenopathy. I had a lengthy discussion with the pathology team. The cytology and the fungal stain and the PCP stain has not been resulted yet. The bronchial lavage showed no microbial growth. Based on that, we decided to make some antibiotic changes in collaboration with infectious disease. The patient accordingly was taken off the cefepime and vancomycin and the patient was started on a combination of Levaquin, Bactrim and voriconazole. Concern with hepatotoxicity in association with voriconazole and the LFTs will be monitored very closely. Echocardiogram was also ordered. She is currently afebrile. On 02/19/2024, the patient is being seen for a follow-up. Clinically unchanged compared to yesterday. No interval worsening shortness of breath. She is currently on 10 L of oxygen high flow with a pulse ox of 93%. Repeat chest x- ray was done today and the findings are essentially stable, probably some slight improvement in the basilar pulmonary filtrates and the patient continues to have bilateral pleural effusion. Echocardiogram was essentially within normal limits. Labs show a disturbed LFTs with an AST of 277, ALT of 345 and an alkaline phosphatase of 538. LDH was 626. Patient remains currently on a combination of voriconazole, Bactrim and Levaquin. She is also on IV Solu- Medrol. Afebrile. Denies having any specific complaints. She is also being diuresed with IV Lasix 40 mg subcu 24 hours. Fluid balance has been negative. On 02/20/2024, the patient is being seen for a follow-up. Feeling better compared to yesterday. Less short of breath compared to yesterday. A repeat chest x-ray was done today and shows a moderate-sized left-sided pleural effusion. Infiltrates in the right lung base seems to have improved. Remains on Levaquin, Bactrim and voriconazole. Afebrile. Pulse ox is improved and the patient is currently is down to 6 L of O2 nasal cannula. No pleurisy. No hemoptysis. The white cell count is at 10.9 with a hemoglobin 9.7 and a platelet count of 205. INR is 1.9. LFTs have somewhat improved and AST is down to 237, ALT is down to 311, alkaline phosphatase at 570, LDH is at 626, total protein is at 5.8 with an albumin of 2.6. Procalcitonin level is at 0.31. The ultrasound of the abdomen shows a left-sided pleural effusion without any other significant abnormalities. The patient remains on IV Lasix. IV fluids are currently at KVO. Patient was seen today on 02/21/2024, patient is feeling much better today, on 4 L nasal cannula, not in any distress, follow-up chest x-ray showed improvement in her left-sided pleural effusion and almost near complete resolution of right lower lobe pneumonia and left lower lobe pneumonia with very minimal pleural effusion noted. Not large enough to consider safe thoracentesis, clinically and radiographically the patient is showing significant improvement. WBC count is 8.5 hemoglobin 9.1. Electrolytes are normal, renal profile is normal. Liver enzymes are steadily improving and her procalcitonin level is 0.31, compared to admission procalcitonin level of 0.56 Seen today on 02/22/2024, patient is doing great today. Hardly any pulmonary symptoms except for slight dyspnea on exertion patient is now on room air with O2 sats of 99%, doing quite well, some of the labs from her BAL are still pending including her PCP stain all cultures including bacterial and fungal cultures were negative. Patient is doing well clinically responding mostly to steroids, and today I discussed with infectious disease specialist is not a bad idea to stop all antibiotics since we have no specific organism to treat and we all believe that her pneumonia and her hepatitis is induced by her anti- inflammatory drugs/Simponi Objective - Vital Signs Vital signs: Vital Signs Temp 99.6 F 02/22/24 14:00 Pulse 92 02/22/24 14:00 Resp 17 02/22/24 14:00 BP 150/84 02/22/24 14:00 Pulse Ox 99 02/22/24 14:00 FiO2 Intake & Output 02/21/24 02/22/24 02/22/24 18:59 06:59 18:59 Intake Total 1620 Balance 1620 Weight 65.771 kg Intake: Oral 1620 Other: # Voids 2 7 - Exam GENERAL EXAM: Revealed 64-year-old female pleasant in no distress on room air HEAD: Normocephalic and atraumatic EYES: Normal reaction of pupils, equal size. NOSE: Clear with pink turbinates. THROAT: No erythema or exudates. NECK: No masses, no JVD. CHEST: No chest wall deformity. LUNGS: Clear bilaterally no crackles rhonchi or wheezes CVS: S1 and S2 normal with no audible murmur, regular rhythm. No extra heart sounds ABDOMEN: No hepatosplenomegaly, active bowel sounds, no guarding or rigidity. SKIN: No rashes, no cutaneous nodules CENTRAL NERVOUS SYSTEM: No focal deficits, tone is normal in all 4 extremities. EXTREMITIES: There is no peripheral edema, clubbing, or cyanosis. Peripheral pulses are intact. - Labs CBC & Chem 7: 02/22/24 02:52 02/22/24 02:52 Labs: Abnormal Lab Results - Last 24 Hours (Table) 02/22/24 02/22/24 Range/Units 02:52 02:52 RBC 2.85 L (4.10-5.20) X 10*6/uL Hgb 9.2 L (12.0-15.0) g/dL Hct 28.1 L (37.2-46.3) % MCV 98.6 H (80.0-97.0) FL MCH 32.3 H (27.0-32.0) pg RDW 15.3 H (11.5-14.5) % Immature Gran # 0.09 H (0.00-0.04) X 10*3/uL Lymphocytes # 0.58 L (0.90-5.00) X 10*3/uL Eosinophils # 0 L (0.04-0.35) X 10*3/uL Sodium 132 L (135-145) mmol/L Glucose 271 H (70-110) mg/dL Calcium 7.9 L (8.7-10.3) mg/dL Magnesium 2.6 H (1.5-2.4) mg/dL Assessment and Plan Assessment: Impression Bilateral lower lobe pneumonia, likely Simponi induced pneumonitis. With induced hepatitis Acute hypoxic respiratory failure, resolved and chest x-ray improved significantly Bilateral pleural effusions left more than right, improving based on chest x-ray today, no need for thoracentesis. Multiple bilateral scattered pulmonary nodules, associated mediastinal/hilar lymphadenopathy, and minimal bibasilar airspace disease, greater on the left;, also felt to be related to Simponi induced, would recommend repeat CT of the chest in the next couple of weeks Acute febrile illness, resolved Rheumatoid arthritis, maintained on methotrexate and Simponi on outpatient basis strongly recommended the patient does not go back on Simponi Transaminitis; Gallbladder ultrasound unremarkable; possibly secondary to liver toxicity from RA meds, steadily improving based on the labs today. Former tobacco smoker, quit smoking over 3 years ago Recommendation: patient is doing great Discussed with infectious disease the issue of stopping her antibiotics and her antifungal treatment Continue Solu-Medrol/prednisone and this could be tapered on outpatient basis Consider discharge planning in the next 24 hours Will continue to follow Time with Patient: Less than 30
[2024-02-23 08:26] VITALS: RESP 18
[2024-02-23 11:06] LABS: Basophils % (A) 0 %; Eosinophils % (A) 0 %; HCT 34.8 % (34.0-46.0); HGB 10.8 gm/dL (11.4-16.0); Hypochromasia Moderate; Lymphocytes # (A) 0.5 k/uL (1.0-4.8); Lymphocytes % (A) 6 %; MCH 31.5 pg (25.0-35.0); MCHC 31.2 g/dL (31.0-37.0); Macrocytosis Slight; Mean Platelet Volume 8.2; Monocytes # (A) 0.5 k/uL (0-1.0); Monocytes % (A) 6 %; Neutrophils % (A) 88 %; Platelet Count 295 k/uL (150-450); RBC 3.44 m/uL (3.80-5.40); RDW 15.2 % (11.5-15.5); WBC 9.1 k/uL (3.8-10.6)
[2024-02-23 11:18] LABS: AST 72 U/L (14-36); African American GFR (CKD) >90 (>60 ml/min/1.73 sqM); Albumin/Globulin Ratio 0.9; Alkaline Phosphatase 464 U/L (38-126); Anion Gap 5 mmol/L; Blood Urea Nitrogen 20 mg/dL (7-17); Calcium 8.3 mg/dL (8.4-10.2); Carbon Dioxide 26 mmol/L (22-30); Chloride 99 mmol/L (98-107); Globulin 3.2 g/dL; Glucose 443 mg/dL (74-99); Non-African American GFR(CKD) >90 (>60 ml/min/1.73 sqM); Potassium 4.4 mmol/L (3.5-5.1); Sodium 130 mmol/L (137-145); Total Protein 6.2 g/dL (6.3-8.2)
[2024-02-23 12:10] LABS: ALT 198 U/L (4-34)
--- NOTE | 2024-02-23 12:25 | P.DS ---
Providers Date of admission: 02/13/24 18:36 Attending physician: Erlinda Breaux MD Consults: 02/14/24 04:26 Consult Physician Urgent Consulting Provider: Shree Chua Consult Reason/Comments: RA with PNA Do you want consulting provider notified?: Yes 02/14/24 05:04 Consult Physician Routine Consulting Provider: Delia Bloom Consult Reason/Comments: Fever of unknown etiology Do you want consulting provider notified?: Yes, Notify in am Primary care physician: [facility] Course: Patient is a 54-year-old female with known rheumatoid arthritis presenting after acute COVID-19 infection 2 years ago treated with methotrexate and Simponi who presented with generalized weakness. Found to have interstitial pneumonia, cardiomyopathy, acute hepatitis, anemia, and mediastinal lymphadenopathy. Developed acute hypoxic respiratory failure with max O2 supplementation at 10 L high flow, acute hepatitis with max AST of 1186 and max ALT of 600. Bilirubin maxed at 2.3. Initially treated with ceftriaxone and vancomycin and subsequently switched to Bactrim to cover PCP prophylaxis, Levaquin for possible legionnaires disease, and voriconazole for possible fungal pneumonia. Acute hepatitis panel was negative, COVID, flu, enterovirus, rhinovirus, parainfluenza, EBV, and HSV were negative. HIV negative, heterophile antibody negative, Legionella urine antigen and mycoplasma IgM were negative. MRSA nasal screen negative, initial AFB negative. Blood and urine cultures were negative. Fevers regressed after 2 days. Started on high-dose steroids on 02/17. Was able to be weened off supplemental NC and overall dyspnea had improved. She was taken off antibx. She was discharged home on 02/22 with prednisone 40 mg daily and gi ppx with pantoprazole. She will need f/u with rheumatology/pulmonary outpatient for further titrating off steroids. d/c furhter simponi and methotraxate. Assessment: Acute hypoxic respiratory failure- resolved Acute interstitial pneumonia - suspected drug induced pneumonitis from simponi/methotraxate Cardiomyopathy with EF 45 to 50% mild global hypokinesis. consider repeat echo outpatient vs. outpatient stress test Acute hepatitis, improved. suspected from simponi. d/c simooni Patient Condition at Discharge: Fair Plan - Discharge Summary Discharge Rx Participant: Yes New Discharge Prescriptions: New predniSONE [Deltasone] 40 mg PO DAILY 15 Days #30 tab Nystatin 100,000 Unit/ml Susp [Mycostatin Oral Susp] 500,000 unit PO QID 5 Days #30 ml Pantoprazole [Protonix] 40 mg PO AC-BRKFST 30 Days #30 tab Continue Folic Acid 1 mg PO DAILY Acetaminophen Tab [Tylenol] 1,000 mg PO Q6HR PRN PRN Reason: Headache Ibuprofen 800 mg PO TID PRN PRN Reason: Pain Discontinued metHOTREXate sodium [Methotrexate] 17.5 mg PO WE Ciprofloxacin HCl [Cipro] 500 mg PO Q12HR Simponi Injection 137.5 mg SQ Q56D Discharge Medication List Folic Acid 1 mg PO DAILY 09/01/22 [History] Acetaminophen Tab [Tylenol] 1,000 mg PO Q6HR PRN 02/13/24 [History] Ibuprofen 800 mg PO TID PRN 02/13/24 [History] Nystatin 100,000 Unit/ml Susp [Mycostatin Oral Susp] 500,000 unit PO QID 5 Days #30 ml 02/23/24 [Rx] Pantoprazole [Protonix] 40 mg PO AC-BRKFST 30 Days #30 tab 02/23/24 [Rx] predniSONE [Deltasone] 40 mg PO DAILY 15 Days #30 tab 02/23/24 [Rx] Follow up Appointment(s)/Referral(s): Sneha Carranza MD [Primary Care Provider] - 03/03/24 2:30 pm Jacqui Siddiqui MD [STAFF PHYSICIAN] - 1 Week (office closed at time of discharge. Please call to schedule appointment ) Plan of Treatment: follow up with rheumatology and pulmonary outpatient continue prednisone 40 mg daily along with pantoprazole 40 mg daily.
--- NOTE | 2024-02-23 13:11 | P.PN ---
Subjective Progress Note Date: 02/23/24 Principal diagnosis: Acute hypoxic respiratory failure secondary to bilateral pneumonia Patient is a 54-year-old female with past medical history significant for rheumatoid arthritis. She does take Simponi and methotrexate on outpatient basis. Primary care provider is Dr. Sneha King. Presents with a chief complaint of weakness and lethargy that started on Wednesday, first noticed at a football game. She is also had intermittent chills and diaphoresis. Appetite has been poor. No nausea or vomiting or other GI manifestations. She denies any recent travel or sick contacts. She denies any shortness of breath, cough, chest pain, hemoptysis. On arrival to the emergency department she did have a high temperature with a Tmax of 103.5 F. Chest CTA protocol was ordered due to an elevated D-dimer. Did not show evidence of pulmonary embolism. Scattered bilateral pulmonary nodules with the largest in the left upper lobe measuring 1.3 x 1.1 cm. Groundglass halo sign around the solid pulmonary nodule in the left upper lobe apex. Multiple other sub-centimeter pulmonary nodules. Prominent bilateral mediastinal and hilar lymphadenopathy noted. There are scattered airspace opacities in the lung bases left greater than right. No history of malignancy. No significant weight loss. CBC: WBC count 6.4, hemoglobin 13.5, hematocrit 39.5, platelets 144. CMP: Sodium 129, potassium 3.8, chloride 92, serum bicarb 29, BUN 16, creatinine 0.75, glucose 126. Lactic 1. AST 782, ALT 444, ALP 431. Lipase 325. Troponins less than 0.012. NT proBNP low. Negative for influenza, RSV, COVID. Most recent vital signs: Temperature 98.4 F, heart rate 103 bpm, blood pressure 102/69 mmHg, SpO2 93% on room air. Normal saline infusing at 130 mL/h. Nontoxic appearance. 02/15/2024, clinically unchanged, continues to have some cough and some limited shortness of breath. She is currently on 2 L of oxygen nasal cannula and she has a pulse ox of 91%. Repeat chest x-ray was done this morning and there is interval worsening of the lower lobe consolidations and the patient has developed bibasilar airspace disease/infiltration. This is most consistent with pneumonia. The patient white cell count remains at 6.1, hemoglobin is 11.5 and a platelet count of 209. Electrolytes are stable. LFTs are improving and the AST has dropped down to 541, ALT is down to 460 and alkaline phosphatase at 407. JUVENTINO was negative. The PE and the c-ANCA were both negative. The Legionella urine antigen was negative. The ultrasound of the gallbladder was done at the time of admission and it showed no acute abnormalities. The plan is to proceed with a bronchoscopy and obtain a bronchoalveolar lavage regarding an ongoing pneumonia in immunocompromised patient who has been taking a combination of Simponi and methotrexate. On today's evaluation of 02/16/2024, the patient is clinically unchanged. However, the repeat chest x-ray that was done today shows worsening in the bilateral pulmonary infiltrates noted in the mid and lower lung yee bilaterally. The patient remains on 2 L of oxygen by nasal cannula. Noted a bronchoscopy was done yesterday along with a bronchial lavage. The cultures are still pending. Discussed the case with the pathology and the microbiology de partment. This may take another 24 to 48 hours. Meanwhile, the blood cultures have been negative. Based on the progression of the pulmonary infiltrates, I started the patient on a combination of cefepime and vancomycin. Meanwhile, the white cell count is at 6.5, hemoglobin 10.5, platelet count is at 205, electrolytes are stable. LFTs are gradually improving. The viral analysis from the bronchoalveolar lavage was essentially negative. Awaiting fungal stains, awaiting PCP stain, absolute CD4 count is 514. On 02/17/2024, the patient's overall condition is stable. She is having episode of low-grade fever with a Tmax of 100.3. Chest x-ray findings from today shows stable infiltration in the middle lung bases bilaterally. She is on oxygen and 4 L nasal cannula. Final cultures have not resulted yet. The white cell count is 6.1. Hemoglobin is 9.9. She does have abnormal LFTs with transaminitis as mentioned earlier. The bronchoalveolar lavage AFB was negative. There was no acid f fast organisms. The bacterial cultures came back negative and the patient remains on a combination of cefepime and vancomycin. On 02/18/2024, the patient had some increased respiratory difficulties in the morning. The patient became more hypoxic and she was placed on 10 L of oxygen by nasal cannula. At the same time, the patient was given a dose of Lasix which resulted in significant diuresis and the patient produced excellent urine output following that and she is currently on 8 L of oxygen nasal cannula up with a pulse ox of 85%. The white cell count is 6.3 with a hemoglobin of 10 and a platelet count of 164. INR is at 1.49. LFTs remain abnormal with a AST of 561, ALT of 405, alkaline phosphatase of 591, bilirubin of 2.3 and a BUN of 9 with a creatinine of 0.6. Potassium is at 3.4. Sodium levels at 131. A follow-up CAT scan of the chest was done today which showed development of moderate-sized bilateral pleural effusion lung base bilaterally in addition to patchy groundg lass bilateral pulmonary infiltrates consistent with atypical/opportunistic pneumonia. Drug-induced pneumonitis cannot be complete excluded. There is also redemonstration of pulmonary nodules and mediastinal lymphadenopathy. I had a lengthy discussion with the pathology team. The cytology and the fungal stain and the PCP stain has not been resulted yet. The bronchial lavage showed no microbial growth. Based on that, we decided to make some antibiotic changes in collaboration with infectious disease. The patient accordingly was taken off the cefepime and vancomycin and the patient was started on a combination of Levaquin, Bactrim and voriconazole. Concern with hepatotoxicity in association with voriconazole and the LFTs will be monitored very closely. Echocardiogram was also ordered. She is currently afebrile. On 02/19/2024, the patient is being seen for a follow-up. Clinically unchanged compared to yesterday. No interval worsening shortness of breath. She is currently on 10 L of oxygen high flow with a pulse ox of 93%. Repeat chest x- ray was done today and the findings are essentially stable, probably some slight improvement in the basilar pulmonary filtrates and the patient continues to have bilateral pleural effusion. Echocardiogram was essentially within normal limits. Labs show a disturbed LFTs with an AST of 277, ALT of 345 and an alkaline phosphatase of 538. LDH was 626. Patient remains currently on a combination of voriconazole, Bactrim and Levaquin. She is also on IV Solu- Medrol. Afebrile. Denies having any specific complaints. She is also being diuresed with IV Lasix 40 mg subcu 24 hours. Fluid balance has been negative. On 02/20/2024, the patient is being seen for a follow-up. Feeling better compared to yesterday. Less short of breath compared to yesterday. A repeat chest x-ray was done today and shows a moderate-sized left-sided pleural effusion. Infiltrates in the right lung base seems to have improved. Remains on Levaquin, Bactrim and voriconazole. Afebrile. Pulse ox is improved and the patient is currently is down to 6 L of O2 nasal cannula. No pleurisy. No hemoptysis. The white cell count is at 10.9 with a hemoglobin 9.7 and a platelet count of 205. INR is 1.9. LFTs have somewhat improved and AST is down to 237, ALT is down to 311, alkaline phosphatase at 570, LDH is at 626, total protein is at 5.8 with an albumin of 2.6. Procalcitonin level is at 0.31. The ultrasound of the abdomen shows a left-sided pleural effusion without any other significant abnormalities. The patient remains on IV Lasix. IV fluids are currently at KVO. Patient was seen today on 02/21/2024, patient is feeling much better today, on 4 L nasal cannula, not in any distress, follow-up chest x-ray showed improvement in her left-sided pleural effusion and almost near complete resolution of right lower lobe pneumonia and left lower lobe pneumonia with very minimal pleural effusion noted. Not large enough to consider safe thoracentesis, clinically and radiographically the patient is showing significant improvement. WBC count is 8.5 hemoglobin 9.1. Electrolytes are normal, renal profile is normal. Liver enzymes are steadily improving and her procalcitonin level is 0.31, compared to admission procalcitonin level of 0.56 Seen today on 02/22/2024, patient is doing great today. Hardly any pulmonary symptoms except for slight dyspnea on exertion patient is now on room air with O2 sats of 99%, doing quite well, some of the labs from her BAL are still pending including her PCP stain all cultures including bacterial and fungal cultures were negative. Patient is doing well clinically responding mostly to steroids, and today I discussed with infectious disease specialist is not a bad idea to stop all antibiotics since we have no specific organism to treat and we all believe that her pneumonia and her hepatitis is induced by her anti- inflammatory drugs/Simponi Seen today on 02/23/2024, patient is doing well, relatively asymptomatic. O2 sats is in the 90s on room air, considering discharge planning and going home today to keep the patient on prednisone until follow-up with Dr. Cruz and with rheumatology on outpatient basis for Objective - Vital Signs Vital signs: Vital Signs Temp 97.5 F L 02/23/24 07:33 Pulse 86 02/23/24 07:33 Resp 18 02/23/24 07:33 BP 108/71 02/23/24 07:33 Pulse Ox 95 02/23/24 07:33 FiO2 Intake & Output 02/22/24 02/23/24 02/23/24 18:59 06:59 18:59 Output Total 5 Balance -5 Weight 65.771 kg Output: Urine 5 Other: Voiding Method Toilet Toilet # Voids 2 # Bowel Movements 1 - Exam GENERAL EXAM: Revealed 64-year-old female pleasant in no distress on room air HEAD: Normocephalic and atraumatic EYES: Normal reaction of pupils, equal size. NOSE: Clear with pink turbinates. THROAT: No erythema or exudates. NECK: No masses, no JVD. CHEST: No chest wall deformity. LUNGS: Clear bilaterally no crackles rhonchi or wheezes CVS: S1 and S2 normal with no audible murmur, regular rhythm. No extra heart s ounds ABDOMEN: No hepatosplenomegaly, active bowel sounds, no guarding or rigidity. SKIN: No rashes, no cutaneous nodules CENTRAL NERVOUS SYSTEM: No focal deficits, tone is normal in all 4 extremities. EXTREMITIES: There is no peripheral edema, clubbing, or cyanosis. Peripheral pulses are intact. - Labs CBC & Chem 7: 02/23/24 10:48 02/23/24 10:48 Labs: Abnormal Lab Results - Last 24 Hours (Table) 02/23/24 02/23/24 Range/Units 10:48 10:48 RBC 3.44 L (3.80-5.40) m/uL Hgb 10.8 L (11.4-16.0) gm/dL MCV 101.0 H (80.0-100.0) fL Neutrophils # 8.0 H (1.3-7.7) k/uL Lymphocytes # 0.5 L (1.0-4.8) k/uL Sodium 130 L (137-145) mmol/L BUN 20 H (7-17) mg/dL Glucose 443 H (74-99) mg/dL Calcium 8.3 L (8.4-10.2) mg/dL AST 72 H (14-36) U/L ALT 198 H (4-34) U/L Alkaline Phosphatase 464 H (38-126) U/L Total Protein 6.2 L (6.3-8.2) g/dL Albumin 3.0 L (3.5-5.0) g/dL Assessment and Plan Assessment: Impression Bilateral lower lobe pneumonia, likely Simponi induced pneumonitis. With induced hepatitis Acute hypoxic respiratory failure, resolved and chest x-ray improved significantly Bilateral pleural effusions left more than right, improving based on chest x-ray today, no need for thoracentesis. Multiple bilateral scattered pulmonary nodules, associated mediastinal/hilar lymphadenopathy, and minimal bibasilar airspace disease, greater on the left;, also felt to be related to Simponi induced, would recommend repeat CT of the chest in the next couple of weeks Acute febrile illness, resolved Rheumatoid arthritis, maintained on methotrexate and Simponi on outpatient basis strongly recommended the patient does not go back on Simponi Transaminitis; Gallbladder ultrasound unremarkable; possibly secondary to liver toxicity from RA meds, steadily improving based on the labs today. Former tobacco smoker, quit smoking over 3 years ago Recommendation: patient is doing great, on room air. Transition to prednisone 40 mg daily Discharge home today and follow-up on outpatient basis with Dr. Cruz and with rheumatology Will continue to follow Time with Patient: Less than 30
[2024-02-23 13:18] LABS: Alpha 1 Anti-Trypsin 190 mg/dL (90 - 200); Alpha-1-Antitrypsin Phenotype MS
[2024-02-23 14:07] VITALS: BP 109/75; PULSE 87; TEMP 98
[2024-02-24] MEDS ORDERED: predniSONE 20 MG TAB PO SCH (09:00)
--- NOTE | 2024-02-24 13:05 | P.PN ---
Subjective Progress Note Date: 02/23/24 Principal diagnosis: Reason for follow-up is pneumonia Patient is a 54-year-old female with a past medical history of osteoarthritis management arthritis COVID-19 in 2020, previous history of smoking presenting to the hospital for evaluation of not feeling well, patient was noted to be febrile did have a CT angiogram of the chest did shows airspace opacities lung base scattered pulmonary nodules. On today's evaluation that is 02/23/2024,the patient denies any fever or any chills, patient is breathing comfortably on room air, the patient denies chest pain shortness of breath and no significant cough, patient denies abdominal pain, no nausea vomiting or diarrhea. Patient is feeling much better wants to go home. Patient white count is 9.1 creatinine 0.68 liver enzymes has improved, stains are still pending Objective - Vital Signs Vital signs: Vital Signs Temp 97.5 F L 02/23/24 07:33 Pulse 86 02/23/24 07:33 Resp 18 02/23/24 07:33 BP 108/71 02/23/24 07:33 Pulse Ox 95 02/23/24 07:33 FiO2 Intake & Output 02/22/24 02/23/24 02/23/24 18:59 06:59 18:59 Output Total 5 Balance -5 Weight 65.771 kg Output: Urine 5 Other: Voiding Method Toilet Toilet # Voids 2 # Bowel Movements 1 - Exam GENERAL DESCRIPTION: Middle-age female lying in bed in no distress RESPIRATORY SYSTEM: Unlabored breathing , coarse breath sound at the base HEART: S1 S2 regular rate and rhythm , ABDOMEN: Soft , no tenderness EXTREMITIES: No edema feet - Labs CBC & Chem 7: 02/23/24 10:48 02/23/24 10:48 Assessment and Plan (1) Sepsis Status: Acute Code(s): A41.9 - SEPSIS, UNSPECIFIED ORGANISM SNOMED Code(s): 62046109 (2) Thrush Status: Acute Code(s): B37.0 - CANDIDAL STOMATITIS SNOMED Code(s): 20903750 (3) Hepatitis Status: Acute Code(s): K75.9 - INFLAMMATORY LIVER DISEASE, UNSPECIFIED SNOMED Code(s): 034364960 (4) Pneumonia Status: Acute Code(s): J18.9 - PNEUMONIA, UNSPECIFIED ORGANISM SNOMED Code(s): 971669672 Plan: 1patient presented to hospital with shortness of breath did have concern for possible atypical pneumonia as well as elevated liver enzymes with initial concern for infectious etiology. 2- patient is status post bronchoscopy lavage and deep culture which are so far negative fungal PCP stain still pending 3patient did have improvement in her clinical condition which could be related to the steroid patient has received and also have improvement in her liver enzymes as well both of these factors point towards possible of symptoms related to Simponi, and the patient has been doing well after discontinuing her antibiotic as well as antifungal and is off the oxygen wants to go home she will get a tapering course of prednisone per pulmonary and no antibiotics on discharge Dictation was produced using [employer] dictation software. please excuse any grammatical, word or spelling errors. Time with Patient: Less than 30
== END 2024-02-23 15:28 | disposition home or self-care (01) | DRG 871 ==
LOC: EC 12:55 → 4SSUR 18:36
PROVIDERS: ADMIT Family Medicine; ATTEND Family Medicine
PROC: 0B9J8ZX Drainage of Left Lower Lung Lobe, Via Natural or Artificial Opening Endoscopic, Diagnostic (ICD-10-PCS; principal; 2024-02-15 07:30)
DX: A41.9 Sepsis, unspecified organism (principal); J96.01 Acute respiratory failure with hypoxia; J91.8 Pleural effusion in other conditions classified elsewhere; I42.9 Cardiomyopathy, unspecified; D84.821 Immunodeficiency due to drugs; B37.0 Candidal stomatitis; B17.9 Acute viral hepatitis, unspecified; E87.1 Hypo-osmolality and hyponatremia; J70.2 Acute drug-induced interstitial lung disorders; M06.9 Rheumatoid arthritis, unspecified; D69.59 Other secondary thrombocytopenia; T45.1X5A Adverse effect of antineoplastic and immunosuppressive drugs, initial encounter; D64.9 Anemia, unspecified; G89.29 Other chronic pain; M19.90 Unspecified osteoarthritis, unspecified site; E87.6 Hypokalemia; J98.4 Other disorders of lung; R79.1 Abnormal coagulation profile; R91.8 Other nonspecific abnormal finding of lung field; R59.0 Localized enlarged lymph nodes; Z79.631 Long term (current) use of antimetabolite agent; Z79.899 Other long term (current) drug therapy; Z86.16 Personal history of COVID-19; Z87.891 Personal history of nicotine dependence
CPT/HCPCS: 31624; 36410; 36415; 71045; 71046; 71250; 71275; 76604; 76700; 76705; 76937; 80048; 80053; 80074; 80202; 81001; 82103; 82104; 82140; 82150; 82550; 83605; 83615; 83690; 83735; 83880; 84145; 84439; 84443; 84481; 84484; 85025; 85027; 85379; 85610; 85652; 85730; 86038; 86140; 86255; 86308; 86360; 86606; 86612; 86635; 86645; 86663; 86664; 86665; 86698; 86738; 87040; 87070; 87075; 87086; 87102; 87116; 87205; 87206; 87390; 87449; 87496; 87498; 87502; 87529; 87634; 87635; 87636; 87798; 88108; 88305; 88312; 88313; 89050; 93005; 93306; 94640; 94760; 96361; 96365; 96375; 99285

== ENCOUNTER → 2024-06-12 | Outpatient (CLI) | payer BC ==
--- NOTE | 2024-06-12 14:43 | CT ---
EXAMINATION TYPE: CT chest abdomen w con DATE OF EXAM: 06/12/2024 COMPARISON: Prior chest CT February 18, 2024 CLINICAL INDICATION: Female, 54 years old with history of R59.0 LOCALIZED ENLARGED LYMPH NODES, Local ized enlarged lymph nodes, TECHNIQUE: CT scan of the thorax and abdomen are performed with oral and with IV Contrast, patient injected with 100 ml mL of Isovue 300. CT DLP: 824 mGycm. Automated Exposure Control for Dose Reduction was Utilized. FINDINGS: LUNGS: Mild underlying emphysematous change redemonstrated. No focal consolidation. No pleural effusi on or pneumothorax seen bilaterally HEART: Size within normal limits. No significant coronary artery calcifications. MEDIASTINUM: Is marked improvement in abnormal mediastinal adenopathy. Currently only subcentimeter l ymph nodes in short axis are seen. No pericardial effusion is seen. LIVER/GB: No significant abnormality is appreciated. PANCREAS: No significant abnormality is seen. SPLEEN: No significant abnormality is seen. ADRENALS: No significant abnormality is seen. KIDNEYS: No significant abnormality is seen. BOWEL: Moderate colonic fecal prominence. No abnormal small or large bowel dilatation LYMPH NODES: No greater than 1cm abdominal lymph nodes are appreciated. OSSEOUS STRUCTURES: No significant abnormality is seen. OTHER: No significant additional abnormality is seen. IMPRESSION: Resolved abnormal thoracic or mediastinal adenopathy. No new suspicious masses or adenop athy on current study. [facility], , 06/12/2024 2:41 PM
== END | disposition home or self-care (01) ==
LOC: RADCTMAIN 09:36
PROVIDERS: ATTEND Internal Medicine Critical Care Medicine
DX: R59.0 Localized enlarged lymph nodes (principal)
CPT/HCPCS: 71260; 74160; Q9967

== ENCOUNTER → 2024-06-12 | Outpatient (CLI) | payer BC ==
[2024-06-12 15:35] LABS: ALT 91 U/L (8-44); AST 60 U/L (13-35)
== END | disposition home or self-care (01) ==
LOC: LABWHC1 10:49
PROVIDERS: ATTEND Internal Medicine Critical Care Medicine
DX: R74.01 Elevation of levels of liver transaminase levels (principal)
CPT/HCPCS: 36415; 84450; 84460